=== PATIENT | male | born 1975 | race Hispanic/Latino ===

== ENCOUNTER 2017-06-09 10:32 | Emergency (ER) | payer MEDICARE ==
[~2017-06-09] VITALS: Ht 172.7 cm; Wt 177.4 kg
[~2017-06-09 10:32] MED LIST: ABILIFY2 MG PO; ASPIRIN81 MG PO; ATORVASTATIN CA20 MG PO; CELEXA40 MG PO; DAILY VITAMIN1 EAC3 PO; DIALYVITE 8000.8 M1 PO; FEXOFENADINE H180 MG PO; FLUDROCORTISON0.1 MG PO; LEVOTHYROXINE200 MCG PO; LYRICA75 MG PO; METHOCARBAMOL500 MG PO; MIDODRINE HCL2.5 MG PO; NABUMETONE500 MG PO; PHOSLO PO; SENSIPAR60 MG PO; SYNTHROID100 MCG PO; THIAMINE HCL250 MG PO; TOPAMAX25 MG PO; TOPAMAX50 MG PO; URSODIOL300 MG PEG; VITAMIN B12 PO; ZOLOFT100 MG PO
--- OUTSIDE RECORDS SUMMARY | 2017-06-09 10:35 | XMS REPORT | Clinical Summary ---
Author Author DEXTER [facility] Address Unknown Phone Unavailable Care Team Providers Care Social Media Manager Name Role Phone PCP Unavailable Allergies Not on File Current Medications Not on file Active Problems Not on file Social History Tobacco Use Types Packs/Day Years Used Date Never Assessed Sex Assigned at Date Recorded Not on file Last Filed Vital Signs Not on file Plan of Treatment Not on file Results Not on fileafter 06/08/2016
--- OUTSIDE RECORDS SUMMARY | 2017-06-09 10:35 | XMS REPORT ---
Author Author [facility] Address Unknown Phone Unavailable Care Team Providers Care Side Piece Coverer Name Role Phone MIGUE WERNER Unavailable Unavailable Problems This patient has no known problems. Allergies, Adverse Reactions, Alerts This patient has no known allergies or adverse reactions. Medications This patient has no known medications. Results Test Description Test Time Test Comments Text Results Atomic Results Result Comments FLUORO GUIDANCE [address]/REM [place] [id number] Patient Name: AIDA ZARATE MR #: [id number] : 1975 Age/Sex: 41/M Req #: [id number] Adm Physician: MIGUE WERNER MD Ordered by: VERONICA MILLAN MD Report #: [id number] Location: [facility] Room/Bed: [facility] Procedure: [id number] DX/FLUORO GUIDANCE [address]/ REM Exam Date: 01/08/17 Exam Time: 1800 REPORT STATUS: Signed PROCEDURE: NON-TUNNELLED CVC CATH PLACMNT COMPARISON: None. INDICATIONS: Patient in need of IV access. COMPLICATIONS: None MEDICATIONS: 1% Xylocaine BLOOD LOSS: Minimal PROCEDURE: Following informed consent, sterile preparation of the right neck was accomplished. 1% lidocaine was infiltrated in the soft tissues. Ultrasound was utilized for vascular access and placement of a 21 gauge skinny needle into the right internal jugular vein. This was followed by a 0.018 inch wire and then a micropuncture sheath which was placed with fluoroscopic guidance. Through the micropuncture sheath a 0.035 inch Amplatz Super Stiff wire was placed. A 7 Georgian 15 cm long arrow triple- lumen central line was then inserted over the wire with fluoroscopic guidance. The line is OK for immediate use. CONCLUSION: Successful placement of a triple-lumen central line utilizing ultrasound and fluoroscopic guidance. Kiran Roque D.O. Dictated by: Kiran Roque D.O. on 01/17/2017 at 10:10 Electronically approved by: Kiran Roque D.O. on 01/17/2017 at 10:10 Dictated By: KIRAN ROQUE DO 1010 Transcribed By: YUAN on 01/17/17 1010 COPY TO: VERONICA MILLAN MD CHEST SINGLE (PORTABLE) [place] [address] Patient Name: AIDA ZARATE MR #: [id number] : 1975 Age/Sex: 41/M Req #: [id number] Adm Physician: Ordered by: VERONICA MILLAN MD Report #: [id number] Location: ER Room/Bed: Procedure: [id number] DX/CHEST SINGLE (PORTABLE) Exam Date: 01/08/17 Exam Time: 0840 REPORT STATUS: Signed PROCEDURE: CHEST SINGLE (PORTABLE) TECHNIQUE: Portable AP chest INDICATION: Chest pain COMPARISON: [facility], DX, CHEST SINGLE (NOT PORTABLE), 12/28/2016, 10:54. FINDINGS: Clear, symmetrically inflated lungs. No pleural effusions. Normal heart size and mediastinal contour for technique. Intact skeleton. Study limited by underpenetration secondary to body habitus and portable technique. CONCLUSION: Limited study without acute abnormality or interval change from December 28. Dictated by: Ashley Montes M.D. on 01/08/2017 at 8:57 Electronically approved by : Ashley Montes M.D. on 01/08/2017 at 8:57 Dictated By : ASHLEY MONTES MD 6 Transcribed By: YUAN on 01/08/17856 COPY TO: VERONICA MILLAN MD NON-TUNNELLED CVC CATH PLACMNT [place] [address] Patient Name: AIDA ZARATE MR #: [id number] : 1975 Age/Sex: 41/M Req #: [id number] Adm Physician: MIGUE WERNER MD Ordered by: VERONICA MILLAN MD Report #: [id number] Location: MED/SURG3 Room/Bed: [facility] Procedure: [id number] IR/NON-TUNNELLED CVC CATH PLACMNT Exam Date: 01/08/17 Exam Time: 1800 REPORT STATUS: Signed PROCEDURE: NON-TUNNELLED CVC CATH PLACMNT COMPARISON: None. INDICATIONS: Patient in need of IV access. COMPLICATIONS: None MEDICATIONS: 1% Xylocaine BLOOD LOSS: Minimal PROCEDURE: Following informed consent, sterile preparation of the right neck was accomplished. 1% lidocaine was infiltrated in the soft tissues. Ultrasound was utilized for vascular access and placement of a 21 gauge skinny needle into the right internal jugular vein. This was followed by a 0.018 inch wire and then a micropuncture sheath which was placed with fluoroscopic guidance. Through the micropuncture sheath a 0.035 inch Amplatz Super Stiff wire was placed. A 7 Georgian 15 cm long arrow triple- lumen central line was then inserted over the wire with fluoroscopic guidance. The line is OK for immediate use. CONCLUSION: Successful placement of a triple-lumen central line utilizing ultrasound and fluoroscopic guidance. Kiran Roque D.O. Dictated by: Kiran Roque D.O. on 01/17/2017 at 10:10 Electronically approved by: Kiran Roque D.O. on 01/17/2017 at 10:10 Dictated By: KIRAN ROQUE DO 1010 Transcribed By: YUAN on 01/17/17 1010 COPY TO: VERONICA MILLAN MD CHEST SINGLE (NOT PORTABLE) [place] [address] Patient Name: AIDA ZARATE MR #: [id number] : 1975 Age/Sex: 41/M Req #: [id number] Adm Physician: Ordered by: VERONICA DEL CASTILLO MD Report #: [id number] Location: ER Room/Bed: Procedure: [id number] DX/CHEST SINGLE (NOT PORTABLE) Exam Date: 12/28/16 Exam Time: 1100 REPORT STATUS: Signed PROCEDURE: X-RAY CHEST, ONE VIEW COMPARISON: None. INDICATIONS: CHEST PAIN, DIZZINESS FINDINGS: Limited evaluation due to patient habitus. The lungs are well-inflated. No gross consolidation, pleural effusion, or pneumothorax. Cardiomediastinal contour and pulmonary vasculature are within normal limits for portable, AP technique. No acute osseous abnormalities. CONCLUSION: No acute cardiopulmonary abnormality. Dictated by: Edison Cedillo M.D. on 12/28/2016 at 11:21 Electronically approved by: Edison Cedillo M.D. on 12/28/2016 at 11:21 Dictated By: EDISON CEDILLO MD 1121 Transcribed By: YUAN on 12/28/161 COPY TO: VERONICA DEL CASTILLO MD US RENAL RETROPERITONEAL COMP [place] [address] Patient Name: AIDA ZARATE MR #: [id number] : 1975 Age/Sex: 41/M Req #: [id number] Adm Physician: MIGUE WERNER MD Ordered by: KRISTOPHER BUCKNER, CHACHA BUCKNER Report #: [id number] Location: [facility] Room/Bed: [place] [address] Procedure: [id number] US/US RENAL RETROPERITONEAL COMP Exam Date: 12/28/16 Exam Time: 1618 REPORT STATUS: Signed PROCEDURE: US RETROPERITONEAL ( KIDNEY ). COMPARISON: CT abdomen/pelvis 06/23/16; ultrasound abdomen 08/04/15 INDICATIONS: Cyst Or Mass Of Kidney; left nephrectomy in 2013 TECHNIQUE: Espitia-scale and color sonographic images of the bilateral kidneys and bladder where obtained in transverse and longitudinal planes. FINDINGS: RIGHT KIDNEY: Length: 8.7 cm in length, cortex is atrophic Masses: An hypoechoic round lesion in the lower pole near the hilum measures 18 x 18 x 21 mm. No corresponding masses are identified on CT or the previous ultrasound. Stones: Intrarenal calculi identified on CT were not visualized sonographically. Hydronephrosis: Mild pelviectasis. Echogenicity: Mildly increased LEFT KIDNEY: Absent. No mass in the nephrectomy bed. Bladder: Collapsed Survey images of the liver and spleen demonstrate no evidence of mass. CONCLUSION: 1. Atrophic right kidney with mild pelviectasis. Increased renal echotexture is suggestive of medical renal disease. 2. Hypoechoic mass in the right kidney has the appearance of a cyst. 3. Left nephrectomy. 4. No sonographic evidence of renal calculi. Dictated by: Liyah Noland M.D. on 12/28/2016 at 17:09 Electronically approved by: Liyah Noland M.D. on 12/28/2016 at 17: 09 Dictated By: LIYAH NOLAND MD 08 Transcribed By: YUAN on 12/28/161708 COPY TO: CHACHA SUMMERS
[2017-06-09 10:58] LABS: BASOPHILS % 0.5 % (0.0-1.0); EOSINOPHILS # (AUTO) 0.3 (0.0-0.4); HEMATOCRIT 49.8 % (38.2-49.6); HEMOGLOBIN 16.8 g/dL (14.0-18.0); LYMPHOCYTES # (AUTO) 1.6 (1.0-3.2); LYMPHOCYTES % 25.3 % (18.0-39.1); MEAN CORPUSCULAR HGB CONC 33.7 g/dL (31-35); MEAN CORPUSCULAR VOLUME 94.9 fL (81-99); MONOCYTES # (AUTO) 0.5 (0.2-0.8); MONOCYTES % 8.1 % (4.4-11.3); NEUTROPHILS # (AUTO) 3.8 (2.1-6.9); NEUTROPHILS % 61.8 % (38.7-80.0); PLATELET COUNT 174 x10e3/uL (140-360); RED BLOOD COUNT 5.25 x10e6/uL (4.3-5.7); RED CELL DISTRIBUTION WIDTH 14.8 % (11.7-14.4)
[2017-06-09 11:08] LABS: INR 1.03; PROTHROMBIN TIME 12.7 seconds (11.9-14.5)
[2017-06-09 11:16] LABS: ALBUMIN 3.8 g/dL (3.5-5.0); ALBUMIN/GLOBULIN RATIO 0.8 (0.8-2.0); ANION GAP 18.1 mmol/L (8-16); CALCIUM 8.7 mg/dL (8.4-10.2); CREATININE, SERUM 6.49 mg/dL (0.72-1.25); POTASSIUM 4.1 mmol/L (3.5-5.1)
--- NOTE | 2017-06-09 13:02 | Diagnostic Imaging Report ---
EXAM: CT Abdomen and Pelvis WITHOUT contrast INDICATION: \S\Oral contrast only, R/o Encarcerated Hernia. Discovered he had a hernia one year ago. Last night hernia started hurting in the mid abdomen. COMPARISON: None. TECHNIQUE: Abdomen and pelvis were scanned utilizing a multidetector helical scanner from the lung base to the pubic symphysis without administration of IV contrast. Absence of intravenous contrast decreases sensitivity for detection of focal lesions and vascular pathology. Coronal and sagittal reformations were obtained. Routine protocol was performed. IV CONTRAST: None ORAL CONTRAST: Readicat COMPLICATIONS: None RADIATION DOSE: Total DLP: 1455.4 mGy*cm Estimated effective dose: (DLP x 0.015 x size factor) mSv CTDIvol has been reviewed. It is below the limits set by the Radiation Protocol Committee (RPC). FINDINGS: LINES and TUBES: None. LOWER THORAX: Unremarkable HEPATOBILIARY: No focal hepatic lesions. No biliary ductal dilation. GALLBLADDER: No radio-opaque stones or sludge. No wall thickening. SPLEEN: No splenomegaly. PANCREAS: No focal masses or ductal dilatation. ADRENALS: No adrenal nodules KIDNEYS/URETERS: Left kidney surgically absent. Right kidney is atrophic. Trace right hydronephrosis. Multiple small cystic lesions are incompletely evaluated. 1.6 cm stone in the upper pole. 1.1 cm stone in the lower pole. 0.8 cm in the proximal right ureter. GI TRACT: No abnormal distention, wall thickening, or evidence of bowel obstruction. Small bowel loops measures 2.5 cm in maximum dimension. Appendix is normal. PELVIC ORGANS/BLADDER: Unremarkable. LYMPH NODES: No lymphadenopathy. VESSELS: Unremarkable. PERITONEUM / RETROPERITONEUM: No free air or fluid. BONES: Unremarkable. SOFT TISSUES: Partially visualized left abdominal wall hernia containing the splenic flexure of the colon, the sigmoid colon, and a short segment of the jejunum. The neck measures 10 cm. No evidence of incarceration. IMPRESSION: 1. There is insufficient time for the positive oral contrast to reach the rectum. However, the small bowel loops are uniform in size and wall thickness with no evidence of obstruction. 2. A large left abdominal wall hernia containing the splenic flexure of the colon, the sigmoid colon, short segment of the jejunum. The neck of the hernia measures 10 cm. No fluid or wall thickening to suggest incarceration or strangulation. 3. Left nephrectomy. Atrophic right kidney with 3 large right renal stones. Signed by: Dr. Chepe Colbert M.D. on 06/09/2017 12:59 PM
[2017-06-09] MEDS ORDERED: HYDROMORPHONE 1MG/1ML INJ IV STA (13:16)
[2017-06-09] MEDS ORDERED: MORPHINE SULFATE 2 MG/ML SYR IV PRN (14:30)
--- OUTSIDE RECORDS SUMMARY | 2017-06-09 14:43 | XMS REPORT | Clinical Summary ---
Author Author DEXTER [facility] Address Unknown Phone Unavailable Care Team Providers Care Buhr Mill Operator Name Role Phone PCP Unavailable Allergies Not on File Current Medications Not on file Active Problems Not on file Social History Tobacco Use Types Packs/Day Years Used Date Never Assessed Sex Assigned at Date Recorded Not on file Last Filed Vital Signs Not on file Plan of Treatment Not on file Results Not on fileafter 06/08/2016
[2017-06-09 16:10] VITALS: BP 124/81
--- NOTE | 2017-06-09 16:45 | History and Physical ---
This patient is a 41-year-old male with a past medical history positive for morbid obesity, left nephrectomy, renal disease, on dialysis, came here with abdominal pain. He was found to have a very large abdominal hernia through the incision site, but no evidence of bowel obstruction on the CT of the abdomen. The patient was seen by Dr. Omari Schumacher, who recommended no surgical intervention right now, and to see a surgeon in a high risk surgical hospital like [facility] due to his multiple comorbidities and being morbidly obese. REVIEW OF SYSTEMS CARDIOVASCULAR: No chest pain or palpitation. RESPIRATORY: No shortness of breath and no cough. ABDOMEN: Soft and nontender. No hepatosplenomegaly. He has an abdominal hernia. EXTREMITIES: Show no evidence of cyanosis, edema or trauma. On the CT of the abdomen, it showed no evidence of any bowel obstruction. On the BMP, sodium 137, potassium 4.1, chloride 93, CO2 30, BUN 27, creatinine 6.49. GFR 9. Glucose 87. Calcium 8.7. Total bilirubin 0.9, AST 15, ALT 16, alkaline phosphatase 409. Brain natriuretic peptide less than 10. Total protein 8.7, albumin 3.8, globulin 4.9, Amylase 277, but the lipase is normal at 70. On the CBC, showed a white blood count 6.21, hemoglobin 16.8, hematocrit 49.8, and platelet cont 174,000. PT 12.7, INR 1.03 and PTT 33. FINAL IMPRESSION 1. Large incisional abdominal hernia. 2. Morbid obesity. 3. End-stage renal disease, on dialysis. 4. Abdominal pain. PLAN OF TREATMENT: The patient as I said was seen by Dr. Omari Schumacher, who saw the patient and recommended the patient to be treated in a high risk [facility] due to the morbid obesity, end-stage renal disease, and defer to the surgeon in this particular patient. The patient is going to be discharged home. Follow up with the surgeon [facility]. Primary care physician is Dr. Ch. Job#: [id number] [place]
--- NOTE | 2017-06-09 18:10 | Discharge Summary ---
WILL NEAL, LENGTH 0:1 DEBBIE TORREZ MD Job#: [id number] [place]
--- NOTE | 2017-06-09 18:15 | Discharge Summary ---
SHORTSTAY A 41-year-old male with a past medical history of positive for end-stage disease, on dialysis, status post nephrectomy due to infection, morbid obesity, came here with left abdominal pain. He had a very large incisional abdominal hernia, which is retractable. CT of the abdomen showed no evidence of any bowel obstruction. The patient was seen by Dr. Omari Schumacher, general surgeon in the hospital, who recommended to the patient that he can go home since there is no evidence of any bowel obstruction. Should he have any more symptoms, he should see a surgeon that specializes in high risk patients. The patient has end-stage renal disease, morbid obesity and a very large hernia. PHYSICAL EXAMINATION HEART: Shows regular rhythm. Normal S1 and S2 sounds. LUNGS: Clear bilaterally. ABDOMEN: Soft. No tension. No hepatosplenomegaly. He has a very large abdominal hernia in the left upper quadrant. FINAL IMPRESSION 1. Abdominal pain secondary to large incisional hernia, which is retractable. 2. End-stage renal disease, on dialysis. 3. Morbid obesity. PLAN OF TREATMENT: The patient will be going home today. Follow up with the surgeon as an outpatient with Dr. Joe Ch, his primary care physician in a week. He was told to go to the emergency room should the symptoms worsen. DEBBIE TORREZ MD Job#: [id number] [place]
== END 2017-06-09 16:14 | disposition home or self-care (01) ==
LOC: ER 10:32 → UNDOADMOB 14:40 → ERHOLD 14:40
DX: R10.12 Left upper quadrant pain (principal); K43.9 Ventral hernia without obstruction or gangrene; I12.0 Hypertensive chronic kidney disease with stage 5 chronic kidney disease or end stage renal disease; N18.6 End stage renal disease; Z99.2 Dependence on renal dialysis; E66.01 Morbid (severe) obesity due to excess calories
CPT/HCPCS: 36415; 74176; 80053; 82150; 83690; 83880; 85025; 85610; 85730; 99284; J1170

== ENCOUNTER 2017-07-25 20:12 | Emergency (ER) | payer MEDICARE ==
[~2017-07-25] VITALS: Ht 172.7 cm; Wt 177.4 kg
--- OUTSIDE RECORDS SUMMARY | 2017-07-25 20:16 | XMS REPORT | Clinical Summary ---
Author Author DEXTER [facility] Address Unknown Phone Unavailable Care Team Providers Care Associate Professor Of Engineering Name Role Phone PCP Unavailable Allergies Active Allergy Reactions Severity Noted Date Comments Iodine And Iodide Swelling 06/09/2017 Containing Products Latex Rash Low 06/25/2017 Current Medications Prescription Sig. Disp. Refills Start End Date Status Date MIDODRINE HCL (MIDODRINE Take 40 mg by mouth 3 Active ORAL) (three) times daily. linaclotide (LINZESS) 72 Take 72 mcg by mouth Active mcg Cap daily. clonazePAM (KLONOPIN) 0.5 Take 0.5 mg by mouth 2 Active MG tablet (two) times daily as needed for Anxiety. DULoxetine (CYMBALTA) 60 Take 60 mg by mouth 2 Active MG capsule (two) times daily. lurasidone (LATUDA) 40 mg Take 40 mg by mouth Active Tab daily. traZODone (DESYREL) 50 MG Take 50 mg by mouth Active tablet nightly. levothyroxine (SYNTHROID, Take 150 mcg by mouth Active LEVOTHROID) 150 MCG Every morning on an empty tablet stomach. pregabalin (LYRICA) 75 MG Take 75 mg by mouth 2 Active capsule (two) times daily. pantoprazole (PROTONIX) Take 40 mg by mouth Active 40 MG tablet daily. FLUDROCORTISONE ACETATE Take 0.1 mg by mouth Active (FLUDROCORTISONE ORAL) daily. zolpidem (AMBIEN) 10 mg Take 10 mg by mouth every Active tablet night as needed for Insomnia. atorvastatin (LIPITOR) 40 Take 40 mg by mouth Active MG tablet daily. diphenhydrAMINE Take 75 mg by mouth every 06/26/19 Discontin (BENADRYL) 25 mg tablet 6 (six) hours as needed 18 ued for Sleep. sevelamer (RENVELA) 800 Take 800 mg by mouth 3 06/26/19 Discontin mg tablet (three) times daily with 18 ued meals. carvedilol (COREG) 12.5 Take 12.5 mg by mouth 2 06/26/19 Discontin MG tablet (two) times daily with 18 ued breakfast and dinner. doxazosin (CARDURA) 4 MG Take 4 mg by mouth 06/26/19 Discontin tablet nightly. 18 ued amLODIPine (NORVASC) 10 Take 10 mg by mouth 06/26/19 Discontin MG tablet daily. 18 ued topiramate (TOPAMAX) 25 Take 25 mg by mouth 2 06/26/19 Discontin MG capsule (two) times daily. 18 ued allopurinol (ZYLOPRIM) Take 100 mg by mouth 06/26/19 Discontin 100 MG tablet daily. 18 ued tamsulosin (FLOMAX) 0.4 Take 0.4 mg by mouth 06/26/19 Discontin mg Cp24 24 hr capsule daily. 18 ued levothyroxine (SYNTHROID, Take 200 mcg by mouth 06/26/19 Discontin LEVOTHROID) 200 MCG Every morning on an empty 18 ued tablet stomach. levothyroxine (SYNTHROID, Take 75 mcg by mouth 06/26/19 Discontin LEVOTHROID) 75 MCG tablet Every morning on an empty 18 ued stomach. ondansetron (ZOFRAN-ODT) Take 1 tablet (4 mg 20 tablet 0 06/09/ 4 MG disintegrating total) by mouth every 8 18 tablet (eight) hours as needed for Nausea for up to 7 days. traMADol (ULTRAM) 50 mg Take 1 tablet (50 mg 10 tablet 0 07/06/ tablet total) by mouth every 12 18 18 (twelve) hours as needed for Pain for up to 10 days. Max Daily Amount: 100 mg ondansetron (ZOFRAN-ODT) Take 1 tablet (4 mg 10 tablet 0 07/07/19 4 MG disintegrating total) by mouth every 8 18 18 tablet (eight) hours as needed for Nausea for up to 7 days. Active Problems Problem Noted Date Ventral hernia 07/06/2017 Encounters Date Type Specialty Care Team Description 07/06/2017 Hospital [facility] Encounter MD [place] 07/06/2017 Procedure Pass 07/06/2017 Surgery Ebony Marroquin LAPAROSCOPY,DIAGNOSTIC MD [place] 06/25/2017 Hospital Pre-Admission Testing Ebony Marroquin Encounter MD [place] 06/25/2017 Anesthesia Leeann Casillas MD Event 06/25/2017 Orders Only General Internal Medicine 06/09/2017 Emergency Emergency Medicine Adam Laurent MD Left sided abdominal pain (Primary Dx);Abdominal wall hernia;ESRD on dialysis (HCC);History of hypertension;History of obstructive sleep apnea;History of hypothyroidism after 07/24/2016 Social History Tobacco Use Types Packs/Day Years Used Date Never Smoker Smokeless Tobacco: Never Used Alcohol Use Drinks/Week oz/Week Comments No Sex Assigned at Date Recorded Not on file Last Filed Vital Signs Vital Sign Reading Time Taken Blood Pressure 94/47 07/06/2017 2:50 PM CDT Pulse 64 07/06/2017 2:50 PM CDT Temperature 36.1 C (96.9 F) 07/06/2017 2:50 PM CDT Respiratory Rate 20 07/06/2017 2:50 PM CDT Oxygen Saturation 99% 07/06/2017 2:50 PM CDT Inhaled Oxygen - - Concentration Weight 171.2 kg (377 lb 8 oz) 07/06/2017 6:59 AM CDT Height 177.8 cm (5' 10") 07/06/2017 6:59 AM CDT Body Mass Index 54.17 07/06/2017 6:59 AM CDT Plan of Treatment Not on file Procedures Procedure Name Priority Date/Time Associated Diagnosis Comments LAPAROSCOPY,DIAGNOSTIC 07/06/2017 Ventral hernia, recurrent 9:30 AM CDT Case Notes 2 HRS PER [place] Special Needs (PHYLLIS RUSSELL)Please also pull Set, SI Long Trocars and DO NOT OPEN UNTIL ASK per Dr. Lalit ricci. AN 5.7.18 after 07/24/2016 Results * RHYTHM STRIP - SCAN (07/10/2017 8:10 AM) * TRANSFUSION SERVICE REPORT - SCAN (07/07/2017 5:44 PM) * Potassium-Stat Lab (07/06/2017 7:16 AM) Component Value Ref Range Potassium 4.4 3.6 - 5.5 meq/L Specimen Performing Laboratory Blood, Arterial [facility] [address] [address] * Type and screen, automated (07/06/2017 7:16 AM) Component Value Ref Range Ab Scrn NEGATIVEComment: ECHO 2 Specimen Performing Laboratory [address] [address] * ABORH, manual (07/06/2017 7:16 AM) Component Value Ref Range ABO Grouping O Rh Factor POS Specimen Performing Laboratory [address] [address] * BUN and Creatinine (06/25/2017 11:41 AM) Component Value Ref Range BUN 41 (H) 7 - 21 mg/dL Creatinine 10.48 (H) 0.57 - 1.25 mg/dL EGFR 5Comment: ESTIMATED GFR IS NOT ACCURATE mL/min/1.73 sq m CREATININE CLEARANCE IN PREDICTING GLOMERULAR FILTRATION RATE. ESTIMATED GFR IS NOT APPLICABLE FOR DIALYSIS PATIENTS. Specimen Performing Laboratory [address] [address] * Hemoglobin (06/25/2017 11:41 AM) Component Value Ref Range Hemoglobin 15.4 13.7 - 17.5 GM/DL Specimen Performing Laboratory [address] [address] * Electrolytes (06/25/2017 11:41 AM) Component Value Ref Range Sodium 141 136 - 145 meq/L Potassium 5.1 3.5 - 5.1 meq/L Chloride 98 98 - 107 meq/L CO2 28 22 - 29 meq/L Specimen Performing Laboratory [address] [address] * ECG 12 lead (06/25/2017 11:38 AM) Specimen Performing Laboratory GE MUSE Narrative Ventricular Rate 80 BPM Atrial Rate 80 BPM P-R Interval 186 ms QRS Duration 92 ms Q-T Interval 390 ms QTC Calculation(Bazett) 449 ms P Brice 48 degrees R Brice 30 degrees T Brice 51 degrees Normal sinus rhythm Low voltage QRS Borderline ECG No previous ECGs available Confirmed by MD ELOY, IHAB ([id number]) on 06/25/2017 1:41:11 PM Procedure Note Interface, External Ris In - 06/25/2017 1:41 PM CDT Ventricular Rate 80 BPM Atrial Rate 80 BPM P-R Interval 186 ms QRS Duration 92 ms Q-T Interval 390 ms QTC Calculation(Bazett) 449 ms P Brice 48 degrees R Brice 30 degrees T Brice 51 degrees Normal sinus rhythm Low voltage QRS Borderline ECG No previous ECGs available Confirmed by MD ELOY, IHAB ([id number]) on 06/25/2017 1:41:11 PM * CBC with platelet count + automated diff (06/09/2017 6:02 PM) Component Value Ref Range WBC 5.8 3.5 - 10.5 K/ L RBC 4.95 4.63 - 6.08 M/ L Hemoglobin 15.8 13.7 - 17.5 GM/DL Hematocrit 47.9 40.1 - 51.0 % MCV 96.8 (H) 79.0 - 92.2 fL MCH 31.9 25.7 - 32.2 pg MCHC 33.0 32.3 - 36.5 GM/DL RDW 14.9 (H) 11.6 - 14.4 % Platelets 152 150 - 450 K/CU MM MPV 9.9 9.4 - 12.4 fL nRBC 0 0 - 0 /100 WBC % Neutros 56 % % Lymphs 31 % % Monos 8 % % Eos 4 % % Baso 1 % # Neutros 3.25 1.78 - 5.38 K/ L # Lymphs 1.79 1.32 - 3.57 K/ L # Monos 0.47 0.30 - 0.82 K/ L # Eos 0.24 0.04 - 0.54 K/ L # Baso 0.04 0.01 - 0.08 K/ L Immature 1 0 - 1 % Granulocytes-Relative Specimen Performing Laboratory Blood - Line, Venous [facility] [address] [address] * CBC with platelet count + automated diff (06/09/2017 6:02 PM) Specimen Performing Laboratory Blood Narrative The following orders were created for panel order CBC with platelet count + automated diff. Procedure Abnormality Status --------- - ------ CBC with platelet count ...[[id number]]AbnormalFinal result Please view results for these tests on the individual orders. * Basic Metabolic Panel (06/09/2017 6:02 PM) Component Value Ref Range Sodium 137 136 - 145 meq/L Potassium 4.5 3.5 - 5.1 meq/L Chloride 95 (L) 98 - 107 meq/L CO2 29 22 - 29 meq/L BUN 29 (H) 7 - 21 mg/dL Creatinine 7.46 (H) 0.57 - 1.25 mg/dL Glucose 100 70 - 105 mg/dL Calcium 8.9 8.4 - 10.2 mg/dL EGFR 8Comment: ESTIMATED GFR IS NOT ACCURATE mL/min/1.73 sq m CREATININE CLEARANCE IN PREDICTING GLOMERULAR FILTRATION RATE. ESTIMATED GFR IS NOT APPLICABLE FOR DIALYSIS PATIENTS. Specimen Performing Laboratory Blood - Line, Venous [facility] [address] [place] [address] after 07/24/2016
[2017-07-26 09:14] LABS: BASOPHILS % 0.6 % (0.0-1.0); EOSINOPHILS # (AUTO) 0.2 (0.0-0.4); EOSINOPHILS % 2.3 % (0.0-6.0); HEMATOCRIT 47.7 % (38.2-49.6); HEMOGLOBIN 15.9 g/dL (14.0-18.0); LYMPHOCYTES # (AUTO) 1.9 (1.0-3.2); LYMPHOCYTES % 28.2 % (18.0-39.1); MEAN CORPUSCULAR HEMOGLOBIN 32.9 pg (28-32); MEAN CORPUSCULAR HGB CONC 33.3 g/dL (31-35); MEAN CORPUSCULAR VOLUME 98.8 fL (81-99); MONOCYTES # (AUTO) 0.5 (0.2-0.8); MONOCYTES % 7.4 % (4.4-11.3); NEUTROPHILS # (AUTO) 4.2 (2.1-6.9); NEUTROPHILS % 61.1 % (38.7-80.0); PLATELET COUNT 194 x10e3/uL (140-360); RED BLOOD COUNT 4.83 x10e6/uL (4.3-5.7); RED CELL DISTRIBUTION WIDTH 15.3 % (11.7-14.4)
[2017-07-26 09:17] LABS: ALBUMIN 3.7 g/dL (3.5-5.0); ALBUMIN/GLOBULIN RATIO 0.9 (0.8-2.0); CALCIUM 8.3 mg/dL (8.4-10.2); CREATININE, SERUM 15.86 mg/dL (0.72-1.25)
== END 2017-07-25 21:28 | disposition home or self-care (01) ==
LOC: ER 20:12
DX: I12.0 Hypertensive chronic kidney disease with stage 5 chronic kidney disease or end stage renal disease (principal); E11.22 Type 2 diabetes mellitus with diabetic chronic kidney disease; Z99.2 Dependence on renal dialysis; Z98.84 Bariatric surgery status; G40.909 Epilepsy, unspecified, not intractable, without status epilepticus
CPT/HCPCS: 36415; 80053; 85025; 99283

== ENCOUNTER 2017-12-04 09:53 | Emergency (ER) | payer MEDICARE ==
[~2017-12-04] VITALS: Ht 172.7 cm; Wt 174.6 kg
[2017-12-04] MEDS ORDERED: ASPIRIN 81 MG CHEW TAB PO STA (10:06)
[2017-12-04] MEDS ORDERED: SODIUM CHLORIDE 0.9% 500ML 500 ML IV ONE ×2 (10:08→10:55)
[2017-12-04] MEDS ORDERED: SODIUM CHLORIDE 0.9% 500ML 500 ML ONE (10:10)
[2017-12-04] MEDS ORDERED: MIDODRINE 2.5 MG TAB PO STA (10:36)
[2017-12-04] MEDS ORDERED: MIDODRINE HCL 5 MG TABLET PO ONE (10:42)
[2017-12-04 11:19] LABS: BASOPHILS % 0.6 % (0.0-1.0); EOSINOPHILS # (AUTO) 0.2 (0.0-0.4); EOSINOPHILS % 3.7 % (0.0-6.0); HEMATOCRIT 50.8 % (38.2-49.6); LYMPHOCYTES # (AUTO) 1.3 (1.0-3.2); LYMPHOCYTES % 25.9 % (18.0-39.1); MEAN CORPUSCULAR HEMOGLOBIN 33.2 pg (28-32); MEAN CORPUSCULAR HGB CONC 33.5 g/dL (31-35); MEAN CORPUSCULAR VOLUME 99.2 fL (81-99); MONOCYTES # (AUTO) 0.4 (0.2-0.8); MONOCYTES % 7.8 % (4.4-11.3); NEUTROPHILS # (AUTO) 3.2 (2.1-6.9); NEUTROPHILS % 61.8 % (38.7-80.0); PLATELET COUNT 183 x10e3/uL (140-360); RED BLOOD COUNT 5.12 x10e6/uL (4.3-5.7)
[2017-12-04 11:27] LABS: INR 0.95; PROTHROMBIN TIME 13.6 seconds (11.9-14.5)
[2017-12-04 11:28] LABS: PARTIAL THROMBOPLASTIN TIME 35.6 seconds (23.8-35.5)
[2017-12-04 11:36] LABS: ALANINE AMINOTRANSFERASE 17 IU/L (0-55); ALBUMIN 3.9 g/dL (3.5-5.0); ALBUMIN/GLOBULIN RATIO 0.8 (0.8-2.0); ALKALINE PHOSPHATASE 377 IU/L (40-150); ANION GAP 20.1 mmol/L (8-16); BLOOD UREA NITROGEN 23 mg/dL (7-26); BUN/CREATININE RATIO 4 (6-25); CALCIUM 9.9 mg/dL (8.4-10.2); CARBON DIOXIDE 29 mmol/L (22-29); CHLORIDE 94 mmol/L (98-107); CREATINE KINASE 99 IU/L (30-200); CREATININE, SERUM 6.11 mg/dL (0.72-1.25); EST GLOMERULAR FILTRATION RATE 10 ML/MIN (60-); GLUCOSE 120 mg/dL (74-118); POTASSIUM 4.1 mmol/L (3.5-5.1); SODIUM 139 mmol/L (136-145)
--- NOTE | 2017-12-04 12:31 | Diagnostic Imaging Report ---
Examination: Single portable AP view of the chest. COMPARISON: None. INDICATION: Chest pain, hypotension IMPRESSION: Exam limited by soft tissue attenuation from patient's body habitus. 1. Lines and Tubes: None 2. Lungs are grossly clear. No consolidation or effusion. 3. Cardiomediastinal silhouette is normal. Pulmonary vasculature is normal. 4. No acute bony abnormalities. Signed by: Dr. Gray Hutchins M.D. on 12/04/2017 12:28 PM
[2017-12-04 13:48] VITALS: BP 116/65
--- OUTSIDE RECORDS SUMMARY | 2017-12-04 14:43 | XMS REPORT | Clinical Summary ---
Author Author [facility] Address Unknown Phone Unavailable Care Team Providers Care Home Based Assistant Name Role Phone PCP Unavailable Allergies Active [...] 1 tablet (4 mg 20 tablet 0 06/09/06/17/19 4 MG disintegrating total) by mouth every 8 18 tablet (eight) hours as needed for Nausea for up to 7 days. traMADol (ULTRAM) 50 mg Take 1 tablet (50 mg 10 tablet 0 07/06/07/17/19 tablet total) by mouth every 12 18 18 (twelve) hours as needed for Pain for up to 10 days. Max Daily Amount: 100 mg ondansetron (ZOFRAN-ODT) Take 1 tablet (4 mg 10 tablet 0 07/07/19 07/14/19 4 MG disintegrating total) by mouth every 8 18 18 tablet (eight) hours as needed for Nausea for up to 7 days. Active Problems Problem Noted Date Ventral hernia 07/06/2017 Encounters Date Type Specialty Care Team Description 07/06/2017 Hospital [place] Encounter MD Isamar 07/06/2017 Procedure Pass 07/06/2017 Surgery Ebony Marroquin LAPAROSCOPY,DIAGNOSTIC MD Isamra 06/25/2017 Hospital Pre-Admission Testing Ebony Marroquin Encounter MD Isamar 06/25/2017 Anesthesia Leeann Casillas MD Event 06/25/2017 Orders Only General Internal Medicine 06/09/2017 Emergency Emergency Medicine Adam Laurent MD Left sided abdominal pain (Primary Dx);Abdominal wall hernia;ESRD on dialysis (HCC);History of hypertension;History of obstructive sleep apnea;History of hypothyroidism after 12/03/2016 Social History Tobacco Use Types Packs/Day Years [...] per Dr. Lalit ricci. AN 5.7.18 after 12/03/2016 Results * RHYTHM STRIP - SCAN (07/10/2017 8:10 AM) * TRANSFUSION SERVICE REPORT - SCAN (07/07/2017 5:44 PM) * Potassium-Stat Lab (07/06/2017 7:16 AM) Component Value Ref Range Potassium 4.4 3.6 - 5.5 meq/L Specimen Performing Laboratory Blood, Arterial [facility] [address] [address] * Type and screen, automated (07/06/2017 7:16 AM) Component Value Ref Range Ab Scrn NEGATIVEComment: ECHO 2 Specimen Performing Laboratory [address] [address] * ABORH, manual (07/06/2017 7:16 AM) Component Value Ref Range ABO Grouping O Rh Factor POS Specimen Performing Laboratory [address] [address] * BUN and Creatinine (06/25/2017 11:41 AM) Component Value Ref Range BUN 41 (H) 7 - 21 mg/dL Creatinine 10.48 (H) 0.57 - 1.25 mg/dL EGFR 5Comment: ESTIMATED GFR IS NOT ACCURATE mL/min/1.73 sq m CREATININE CLEARANCE IN PREDICTING GLOMERULAR FILTRATION RATE. ESTIMATED GFR IS NOT APPLICABLE FOR DIALYSIS PATIENTS. Specimen Performing Laboratory [address] [address] * Hemoglobin (06/25/2017 11:41 AM) Component Value Ref Range Hemoglobin 15.4 13.7 - 17.5 GM/DL Specimen Performing Laboratory [address] [address] * Electrolytes (06/25/2017 11:41 AM) Component Value Ref Range Sodium 141 136 - 145 meq/L Potassium 5.1 3.5 - 5.1 meq/L Chloride 98 98 - 107 meq/L CO2 28 22 - 29 meq/L Specimen Performing Laboratory [address] [address] * ECG 12 lead (06/25/2017 11:38 AM) Specimen Performing Laboratory GE MUSE Narrative Ventricular Rate 80 BPM Atrial Rate 80 BPM P-R Interval 186 ms QRS Duration 92 ms Q-T Interval 390 ms QTC Calculation(Bazett) 449 ms P [place] 48 degrees R [place] 30 degrees T [place] 51 degrees Normal sinus rhythm Low voltage QRS Borderline ECG No previous ECGs available Confirmed by MD ELOY, IHAB ([id number]) on 06/25/2017 1:41:11 PM Procedure Note Interface, External Ris In - 06/25/2017 1:41 PM CDT Ventricular Rate 80 BPM Atrial Rate 80 BPM P-R Interval 186 ms QRS Duration 92 ms Q-T Interval 390 ms QTC Calculation(Bazett) 449 ms P [place] 48 degrees R [place] 30 degrees T [place] 51 degrees Normal sinus rhythm Low voltage QRS Borderline ECG No previous ECGs available Confirmed by MD ELOY, IHAB ([id number]) on 06/25/2017 1:41:11 PM * CBC with platelet count + automated diff (06/09/2017 6:02 PM) Component Value Ref Range WBC 5.8 3.5 - 10.5 K/L RBC 4.95 4.63 - 6.08 M/L Hemoglobin 15.8 13.7 - 17.5 GM/DL Hematocrit [...] % # Neutros 3.25 1.78 - 5.38 K/L # Lymphs 1.79 1.32 - 3.57 K/L # Monos 0.47 0.30 - 0.82 K/L # Eos 0.24 0.04 - 0.54 K/L # Baso 0.04 0.01 - 0.08 K/L Immature 1 0 - 1 % Granulocytes-Relative Specimen Performing Laboratory Blood - Line, Venous [facility] [address] [address] * CBC with platelet count + automated diff (06/09/2017 6:02 PM) Specimen Performing Laboratory Blood Narrative The following orders were created for panel order CBC with platelet count + automated diff. Procedure Abnormality Status --------- ------ CBC with platelet count ...[[id number]]AbnormalFinal result Please view results for these tests [...] Performing Laboratory Blood - Line, Venous [facility] [address] [place] [address] after 12/03/2016
== END 2017-12-04 13:50 | disposition home or self-care (01) ==
LOC: ER 09:53
DX: R07.89 Other chest pain (principal); K52.9 Noninfective gastroenteritis and colitis, unspecified; I95.9 Hypotension, unspecified; N18.6 End stage renal disease; Z99.2 Dependence on renal dialysis; I25.10 Atherosclerotic heart disease of native coronary artery without angina pectoris; E03.9 Hypothyroidism, unspecified
CPT/HCPCS: 36415; 71045; 80053; 82550; 82553; 83880; 84484; 85025; 85379; 85610; 85730; 93005; 99284; J7040

== ENCOUNTER → 2018-07-03 | Outpatient (CLI) | payer MEDICARE | LOC: MRI 13:36 | PROVIDERS: ATTEND Student in an Organized Health Care Education/Training Program | DX: R20.0 Anesthesia of skin (principal) ==

== ENCOUNTER 2018-10-03 08:46 | Emergency (ER) | payer MEDICARE ==
[~2018-10-03] VITALS: Ht 172.7 cm; Wt 174.6 kg
--- OUTSIDE RECORDS SUMMARY | 2018-10-03 08:48 | XMS REPORT | Clinical Summary ---
Author Author [facility] Organization [facility] Address Unknown Phone Unavailable Care Team Providers Care Sandblaster Supervisor Name Role Phone Bebeto Ch PCP Allergies Comments Active Allergy Reactions Severity Noted Date Iodine And Iodide Swelling 06/09/2017 Containing Products Latex Rash Low 06/25/2017 Medications End Date Status Medication Sig Dispensed Refills Start Date Active MIDODRINE HCL (MIDODRINE Take 40 mg by 0 ORAL) mouth 3 (three) times daily. Active linaclotide (LINZESS) 72 Take 72 mcg 0 mcg Cap by mouth daily. Active clonazePAM (KLONOPIN) 0.5 Take 0.5 mg 0 MG tablet by mouth 2 (two) times daily as needed for Anxiety. Active DULoxetine (CYMBALTA) 60 Take 60 mg by 0 MG capsule mouth 2 (two) times daily. Active lurasidone (LATUDA) 40 mg Take 40 mg by 0 Tab mouth daily. Active traZODone (DESYREL) 50 MG Take 50 mg by 0 tablet mouth nightly. Active levothyroxine (SYNTHROID, Take 150 mcg 0 LEVOTHROID) 150 MCG by mouth tablet Every morning on an empty stomach. Active pregabalin (LYRICA) 75 MG Take 75 mg by 0 capsule mouth 2 (two) times daily. Active pantoprazole (PROTONIX) Take 40 mg by 0 40 MG tablet mouth daily. Active FLUDROCORTISONE ACETATE Take 0.1 mg 0 (FLUDROCORTISONE ORAL) by mouth daily. Active zolpidem (AMBIEN) 10 mg Take 10 mg by 0 tablet mouth every night as needed for Insomnia. Active atorvastatin (LIPITOR) 40 Take 40 mg by 0 MG tablet mouth daily. Active Problems Problem Noted Date Ventral hernia 07/06/2017 Social History Date Tobacco Use Types Packs/Day Years Used Never Smoker Smokeless Tobacco: Never Used Alcohol Use Drinks/Week oz/Week Comments No Sex Assigned at Date Recorded Not on file Industry Job Start Date Occupation Not on file Not on file Not on file Travel End Travel History Travel Start No recent travel history available. Last Filed Vital Signs Not on file Plan of Treatment Not on file Results Not on fileafter 10/02/2017 Insurance Payer Benefit Subscriber ID Type Phone Address Plan / Group MEDICARE MEDICARE A xxxxxxxxxx Medicare B MEDICAID MEDICAID xxxxxxxxx Medicaid OF [place] Advance Directives For more information, please contact: [facility] [address] [place] [address] Date Inactivated Comments Code Status Date Activated 07/06/2017 5:06 PM Full Code 07/06/2017 7:15 AM This code status was determined by: Patient
[2018-10-03] MEDS ORDERED: ASPIRIN 81 MG CHEW TAB PO ONE (09:00)
[2018-10-03 09:17] LABS: BASOPHILS # (AUTO) 0.1 (0.0-0.1); BASOPHILS % 0.8 % (0.0-1.0); EOSINOPHILS # (AUTO) 0.3 (0.0-0.4); EOSINOPHILS % 4.5 % (0.0-6.0); HEMATOCRIT 39.2 % (38.2-49.6); HEMOGLOBIN 13.2 g/dL (14.0-18.0); LYMPHOCYTES # (AUTO) 1.6 (1.0-3.2); LYMPHOCYTES % 21.4 % (18.0-39.1); MEAN CORPUSCULAR HEMOGLOBIN 33.2 pg (28-32); MEAN CORPUSCULAR HGB CONC 33.7 g/dL (31-35); MEAN CORPUSCULAR VOLUME 98.5 fL (81-99); MONOCYTES # (AUTO) 0.7 (0.2-0.8); MONOCYTES % 9.3 % (4.4-11.3); NEUTROPHILS # (AUTO) 4.8 (2.1-6.9); NEUTROPHILS % 63.7 % (38.7-80.0); PLATELET COUNT 224 x10e3/uL (140-360); RED BLOOD COUNT 3.98 x10e6/uL (4.3-5.7)
[2018-10-03 09:28] LABS: INR 0.96; PROTHROMBIN TIME 13.3 seconds (11.9-14.5)
[2018-10-03 09:30] LABS: PARTIAL THROMBOPLASTIN TIME 69.5 seconds (23.8-35.5)
[2018-10-03 09:38] LABS: ALBUMIN 3.5 g/dL (3.5-5.0); ALBUMIN/GLOBULIN RATIO 0.9 (0.8-2.0); POTASSIUM 4.8 mmol/L (3.5-5.1)
[2018-10-03 09:43] LABS: ANION GAP 17.8 mmol/L (8-16); CALCIUM 7.6 mg/dL (8.4-10.2); CREATININE, SERUM 10.63 mg/dL (0.72-1.25)
[2018-10-03 09:44] LABS: CREATINE KINASE MB 1.7 ng/mL (0-5.0)
--- NOTE | 2018-10-03 09:49 | Diagnostic Imaging Report ---
Chest, 1 view, 10/03/2018. History: Chest pain. Comparison: 12/04/2017. Findings: The cardiomediastinal silhouette and pulmonary vasculature are within normal limits for a portable exam. There is no focal consolidation or pleural effusion. There are no acute osseous or soft tissue abnormalities. Impression: No acute cardiopulmonary abnormality. Signed by: Ian Stewart on 10/03/2018 9:45 AM
[2018-10-03 12:34] LABS: CREATINE KINASE 178 IU/L (30-200)
== END 2018-10-03 13:52 | disposition home or self-care (01) ==
LOC: ER 08:46
DX: R07.89 Other chest pain (principal); I12.0 Hypertensive chronic kidney disease with stage 5 chronic kidney disease or end stage renal disease; N18.6 End stage renal disease; Z99.2 Dependence on renal dialysis; I25.10 Atherosclerotic heart disease of native coronary artery without angina pectoris; E03.9 Hypothyroidism, unspecified; F41.9 Anxiety disorder, unspecified
CPT/HCPCS: 36415; 71045; 80053; 82550; 82553; 84484; 85025; 85610; 85730; 93005; 99284

== ENCOUNTER 2018-10-29 19:54 | Emergency (ER) | payer MEDICARE ==
[~2018-10-29] VITALS: Ht 172.7 cm; Wt 174.6 kg
[2018-10-29 21:03] LABS: BASOPHILS # (AUTO) 0.1 (0.0-0.1); BASOPHILS % 0.7 % (0.0-1.0); EOSINOPHILS # (AUTO) 0.3 (0.0-0.4); EOSINOPHILS % 3.9 % (0.0-6.0); HEMOGLOBIN 13.5 g/dL (14.0-18.0); LYMPHOCYTES # (AUTO) 1.3 (1.0-3.2); LYMPHOCYTES % 18.3 % (18.0-39.1); MEAN CORPUSCULAR HEMOGLOBIN 32.1 pg (28-32); MEAN CORPUSCULAR HGB CONC 32.9 g/dL (31-35); MEAN CORPUSCULAR VOLUME 97.4 fL (81-99); MONOCYTES # (AUTO) 0.3 (0.2-0.8); MONOCYTES % 4.5 % (4.4-11.3); NEUTROPHILS # (AUTO) 5.2 (2.1-6.9); NEUTROPHILS % 72.3 % (38.7-80.0); PLATELET COUNT 187 x10e3/uL (140-360); RED BLOOD COUNT 4.21 x10e6/uL (4.3-5.7); RED CELL DISTRIBUTION WIDTH 13.5 % (11.7-14.4)
[2018-10-29 21:25] LABS: ALBUMIN 3.7 g/dL (3.5-5.0); ALBUMIN/GLOBULIN RATIO 0.9 (0.8-2.0); ANION GAP 15.4 mmol/L (8-16); CALCIUM 7.8 mg/dL (8.4-10.2); CREATININE, SERUM 7.82 mg/dL (0.72-1.25); POTASSIUM 4.4 mmol/L (3.5-5.1)
[2018-10-29 21:26] LABS: AMYLASE 211 U/L (25-125); LIPASE 33 U/L (8-78)
--- NOTE | 2018-10-29 23:23 | Diagnostic Imaging Report ---
EXAM: CT Abdomen and Pelvis WITHOUT intravenous contrast, with oral contrast INDICATION: Abdominal pain COMPARISON: Abdominal CT 06/09/2017. TECHNIQUE: Abdomen and pelvis were scanned utilizing a multidetector helical scanner from the lung base to the pubic symphysis without administration of IV contrast. Absence of intravenous contrast decreases sensitivity for detection of focal lesions and vascular pathology. Coronal and sagittal reformations were obtained. Routine protocol was performed. IV CONTRAST: None ORAL CONTRAST: Positive oral contrast COMPLICATIONS: None RADIATION DOSE: Total DLP: 2257 mGy*cm Estimated effective dose: (DLP x 0.015 x size factor) mSv CTDIvol has been reviewed. It is below the limits set by the Radiation Protocol Committee (RPC). Dose modulation, iterative reconstruction, and/or weight based adjustment of the mA/kV was utilized to reduce the radiation dose to as low as reasonably achievable. FINDINGS: The left side of the patient's abdomen is outside of the field of view which limits evaluation. LINES and TUBES: None. LOWER THORAX: A few small air cysts in the lower lungs. HEPATOBILIARY: No focal hepatic lesions. No biliary ductal dilation. GALLBLADDER: No radio-opaque stones or sludge. No wall thickening. SPLEEN: No splenomegaly. PANCREAS: No focal masses or ductal dilatation. ADRENALS: No adrenal nodules KIDNEYS/URETERS: A few calculi in the atrophic right kidney, the largest measures 1.2 cm. No hydronephrosis. Absent left kidney. No renal masses. GI TRACT: No abnormal distention, wall thickening, or evidence of bowel obstruction. Part of the intestines are excluded from the field of view as they herniate through the left abdominal hernia out of the field of scan view. Partial gastrectomy. Appendix is normal. PELVIC ORGANS/BLADDER: Unremarkable. LYMPH NODES: No lymphadenopathy. VESSELS: There is mild atherosclerotic disease in the aorta and major arterial branches. PERITONEUM / RETROPERITONEUM: Partially visualized large left abdominal wall fat and bowel-containing hernia through a 15 cm peritoneal defect, similar in appearance compared to 06/09/2017 . No evidence of strangulation or bowel obstruction however the majority of the hernia is not included in the scan field of view. BONES: Sclerotic and cystic changes throughout the skeleton can be seen in setting of renal osteodystrophy. Subchondral resorption at the sacroiliac joints. SOFT TISSUES: The left abdominal soft tissues are not entirely included on this scan. IMPRESSION: Limited exam due to partial exclusion of the left side of the patient's abdomen outside of field of view. 1. Partially visualized large fat and bowel containing left abdominal hernia without evidence of stranding dilation, although the entire hernia is not included within the scan [id number]. The hernia appears unchanged compared to scan on 06/09/2017. 2. Right renal nephrolithiasis and right renal atrophy. Left kidney not visualized. 3. Findings of renal osteodystrophy. Signed by: Marcos Johnson DO on 10/29/2018 11:19 PM
== END 2018-10-29 23:32 | disposition home or self-care (01) ==
LOC: ER 19:54
DX: R10.12 Left upper quadrant pain (principal); K43.9 Ventral hernia without obstruction or gangrene
CPT/HCPCS: 36415; 74176; 80053; 82150; 83690; 85025; 99283

== ENCOUNTER → 2019-09-16 | Outpatient (CLI) | payer MEDICARE, BC ==
[~2019-09-16] MED LIST changes: +ALLEGRA ALLERGY60 MG PO; +AMBIEN10 MG PO; +PREDNISONE5 MG PO
== END ==
LOC: RAD 13:17
DX: M79.89 Other specified soft tissue disorders (principal)
CPT/HCPCS: 93970

== ENCOUNTER → 2019-09-23 | Day surgery (SDC) | payer MEDICARE, BC, OTHER ==
[~2019-09-23] MED LIST changes: +BUPIVACAINE HCL 0.5% INJ 30 ML VIAL INJ ONE; +CEFAZOLIN SOD 1 GM/NS 50ML 100 ML IV ONE; +DEXAMETHASONE SOD PHOS INJ 4 MG/ML VIAL ONE; +HYDROMORPHONE 1MG/1ML INJ ONE; +LIDOCAINE HCL 2% LOCAL INJ 5 ML SDV VIAL INJ ONE; +NEOSTIGMINE 1 MG/ML 10ML VIAL ONE; +PROPOFOL IV EMULSION 10 MG/ML 20 ML VIAL ONE; +SEVOFLURANE INHAL SOLN 250 ML PEN BTL ONE; +SODIUM CHLORIDE 0.9% 500ML 500 ML ONE
[2019-09-23 06:56] LABS: BASOPHILS % 0.2 % (0.0-1.0); EOSINOPHILS # (AUTO) 0.1 (0.0-0.4); EOSINOPHILS % 0.6 % (0.0-6.0); HEMATOCRIT 39.3 % (38.2-49.6); HEMOGLOBIN 12.7 g/dL (14.0-18.0); LYMPHOCYTES # (AUTO) 1.5 (1.0-3.2); LYMPHOCYTES % 16.9 % (18.0-39.1); MEAN CORPUSCULAR HEMOGLOBIN 31.8 pg (28-32); MEAN CORPUSCULAR HGB CONC 32.3 g/dL (31-35); MEAN CORPUSCULAR VOLUME 98.5 fL (81-99); MONOCYTES # (AUTO) 0.7 (0.2-0.8); MONOCYTES % 8.1 % (4.4-11.3); NEUTROPHILS # (AUTO) 6.6 (2.1-6.9); NEUTROPHILS % 73.9 % (38.7-80.0); PLATELET COUNT 182 x10e3/uL (140-360); RED BLOOD COUNT 3.99 x10e6/uL (4.3-5.7); RED CELL DISTRIBUTION WIDTH 12.9 % (11.7-14.4)
[2019-09-23 07:09] LABS: INR 0.95; PROTHROMBIN TIME 13.1 seconds (11.9-14.5)
[2019-09-23 07:10] LABS: PARTIAL THROMBOPLASTIN TIME 30.6 seconds (23.8-35.5)
[2019-09-23 07:21] LABS: ANION GAP 17.2 mmol/L (8-16); CALCIUM 7.4 mg/dL (8.4-10.2); CREATININE, SERUM 8.5 mg/dL (0.72-1.25); POTASSIUM 4.2 mmol/L (3.5-5.1)
--- NOTE | 2019-09-23 09:21 | Diagnostic Imaging Report ---
OR Fluoroscopy: IMPRESSION: Fluoroscopy service provided in the OR. Interpretation not requested. Signed by: Caesar Garza MD on 09/23/2019 9:17 AM
[2019-09-23 09:35] VITALS: BP 118/72
--- NOTE | 2019-09-23 11:22 | Operative Report ---
DATE OF PROCEDURE: 09/23/2019 SURGEON: Dionne Sherwood DPM FUGITIVE INVESTIGATOR: None. PREOPERATIVE DIAGNOSIS: Chronic plantar fasciotomy with bone spur, left foot. POSTOPERATIVE DIAGNOSIS: Chronic plantar fasciotomy with bone spur, left foot. PROCEDURES: 1. Endoscopic plantar fasciotomy with removal of bone spur, left foot. 2. Use of human allograft to prevent adhesions to spur healing. 3. Application of posterior splint. COMPLICATIONS: None. CONDITION: Stable. HEMOSTASIS: Pneumatic ankle tourniquet. ESTIMATED BLOOD LOSS: Less than 10 mL. PROCEDURE IN DETAIL: Under mild sedation, the patient was brought to the operating room, placed on the operating table in supine position. Following IV sedation, anesthesia was obtained with a general anesthetic. At this point, the left foot scrubbed, prepped, and draped in the usual aseptic manner, it was then lowered to the table. Attention was then directed to the medial aspect of the left foot, where a linear incision was made overlying the plantar fascia. The incision was deepened down to the level of the fascia. The fascia was then isolated. Trocar and cannula were then inserted. A lateral portal was then made. The trocar was removed. The camera was inserted. The medial, central, and lateral bands were you visualized. Utilizing a fascia blade, medial and central bands were transected through and through, leaving the lateral band intact. The instruments were then removed. The area was then flushed with copious amount of normal sterile saline solution. Utilizing the use of ventral fluoroscopy, the bone spur was then isolated utilizing an oscillating saw, it was then removed with the use of intraoperative fluoroscopy. The area was then flushed with copious amount of normal sterile saline solution. The human allograft was then inserted to prevent adhesions to prevent healing and to decrease the inflammatory response. The areas were then flushed copious amount of normal sterile saline solution. The wound was then closed with 4-0 nylon. Clean dressing was applied, consisting of Adaptic ointment, 4x4s, Kerlix was applied and posterior splint was secured utilizing an El bandage. The patient tolerated the procedure and anesthesia well without complications, was transferred to recovery room with vital signs stable and vascular status intact to both feet. The patient will be discharged home when he meets criteria. He was given instructions to be partial weightbearing with the use of the postop shoe and a posterior splint and a walker, to ice and elevate the foot while at rest. Follow up with me in the office and to call the office if any questions, concerns, or new problems arise. ALEX Grant/FERN /[id number]
== END | disposition home or self-care (01) ==
LOC: OR 06:05
PROVIDERS: ATTEND Podiatrist Foot & Ankle Surgery
DX: M72.2 Plantar fascial fibromatosis (principal); M77.32 Calcaneal spur, left foot; M06.9 Rheumatoid arthritis, unspecified; G47.33 Obstructive sleep apnea (adult) (pediatric); E03.9 Hypothyroidism, unspecified; K44.9 Diaphragmatic hernia without obstruction or gangrene; N18.6 End stage renal disease; E78.00 Pure hypercholesterolemia, unspecified; E66.9 Obesity, unspecified; F31.9 Bipolar disorder, unspecified; Z91.041 Radiographic dye allergy status; Z01.810 Encounter for preprocedural cardiovascular examination; Z01.812 Encounter for preprocedural laboratory examination; Z11.59 Encounter for screening for other viral diseases
CPT/HCPCS: 28104; 29893; 36415; 80048; 85025; 85610; 85730; 93005; J0690; J1100; J1170; J2001; J2704; J2710; J7040; Q4150; U0002; 76000

== ENCOUNTER 2019-12-05 10:07 | Inpatient (IN) | payer MEDICARE, BC, OTHER ==
[~2019-12-05] VITALS: Ht 177.8 cm; Wt 193.7 kg
[~2019-12-05 10:07] MED LIST changes: -BUPIVACAINE HCL 0.5% INJ 30 ML VIAL INJ ONE; -CEFAZOLIN SOD 1 GM/NS 50ML 100 ML IV ONE; -DEXAMETHASONE SOD PHOS INJ 4 MG/ML VIAL ONE; -HYDROMORPHONE 1MG/1ML INJ ONE; -LIDOCAINE HCL 2% LOCAL INJ 5 ML SDV VIAL INJ ONE; -NEOSTIGMINE 1 MG/ML 10ML VIAL ONE; -PROPOFOL IV EMULSION 10 MG/ML 20 ML VIAL ONE; -SEVOFLURANE INHAL SOLN 250 ML PEN BTL ONE; -SODIUM CHLORIDE 0.9% 500ML 500 ML ONE
[2019-12-05] MEDS ORDERED: ENOXAPARIN SODIUM INJ 100 MG/ML SYR SC STA (11:01)
--- OUTSIDE RECORDS SUMMARY | 2019-12-05 11:13 | XMS REPORT | Clinical Summary ---
Author Author [facility] Organization [facility] ict Address Unknown Phone Unavailable Care Team Providers Care Director Retirement Name Role Phone Malina Cantu [phone] Allergies Comments Active Allergy Reactions Severity Noted Date Iodine Swelling Medium 01/05/2010 Medications End Date Status Medication Sig Dispensed Refills Start Date Active diphenhydrAMINE Take 75 mg by 0 (BENADRYL) 25 mg capsule mouth every 6 hours as needed for Allergies. Active Sevelamer Carbonate Take 800 mg 0 (RENVELA) 800 mg tablet by mouth 3 times daily with meals. Active citalopram (CELEXA) 20 mg Take 1 tablet 90 tablet 0 tabletIndications: by mouth 4 Depression daily. Active carvedilol (COREG) 12.5 Take 1 tablet 180 tablet 1 mg tabletIndications: by mouth 2 4 Hypertension times daily. Active doxazosin (CARDURA) 4 mg Take 1 tablet 90 tablet 1 tabletIndications: by mouth 4 Hypertension daily. Active amLODIPine (NORVASC) 10 Take 1 tablet 90 tablet 1 mg tabletIndications: by mouth 4 Hypertension daily. Active topiramate (TOPAMAX) 25 Take 1 tablet 180 tablet 1 mg tabletIndications: by mouth 2 4 Migraine times daily. Active allopurinol (ZYLOPRIM) Take 1 tablet 90 tablet 1 1 100 mg tabletIndications: by mouth 4 Hyperuricemia daily. Active tamsulosin (FLOMAX) 0.4 Take 1 90 capsule 1 mg extended release capsule by 4 capsuleIndications: Renal mouth daily. stone Active levothyroxine (SYNTHROID) Take 1 tablet 90 tablet 1 200 mcg by mouth 4 tabletIndications: daily (total Hypothyroidism 275 mcg daily). Active levothyroxine (SYNTHROID) Take 1 tablet 90 tablet 1 75 mcg tabletIndications: by mouth 4 Hypothyroidism daily (total 275 mcg daily). Active Problems Problem Noted Date Morbid obesity with BMI of 50.0-59.9, adult 01/04/20 Encounter for blood transfusion 12/19/2012 Environmental allergies 12/19/2012 Dysuria 12/19/2012 Hematuria 12/19/2012 Hyperphosphatemia 12/17/2012 Secondary hyperparathyroidism of renal origin 2012 ESRD on dialysis 12/17/2012 Morbid obesity 12/16/2012 CKD (chronic kidney disease), stage V 12/16/2012 ESRD needing dialysis 12/16/2012 Anemia of chronic disease 12/16/2012 Blindness of left eye 10/25/2012 Overview: 11/07/12 - Received request for outside patient service (Open MRI Brain) from Dr. Raymundo Rosales. Patient's weig ht (396 lbs) exceeds the limit for [employer] MRI machines. The patient has eligibility under HD Plan 4 (100% Self-Pay). Patient is responsible for payment of procedure @ facility of choice. Unable to approve for outsou rcing of procedure @ this time. In basket note to Dr. Raymundo Rosales. Thea [place], [place] # [id number] Hyperparathyroidism 07/26/2011 Vitamin D deficiency 07/26/2011 Mixed calcium oxalate renal stones 07/26/2011 Ureteral stent retained 01/09/2011 Hypertension 06/02/2010 Hyperuricemia 06/02/2010 Hydronephrosis with renal and ureteral calculous obst ruction 05/30/2010 Hypothyroidism -h/of graves in past; retroorbital tri daniel +; seen endo in 05/30/2010 past - as of Feb 2013 - increase levot hyroxine to 275 mcg; ref to endocrinology done; rpt tsh in 8 wks Obesity Renal stone Sleep apnea Staghorn calculus End stage renal disease Immunizations Name Administration Dates Next Due Lidocaine 1% 5ml Inj 04/26/2011 DTaP Diphtheria, Tetanus, 06/22/1996 Acellular, Pertussis Influenza Vaccine 12/17/2012, 12/12/2011, PNEUMOCOCCAL 23-VALPS 12/12/2011 VACCINE 25 MCG/0.5 ML INJECTION Tdap Tetanus, diphtheria, 06/22/2010 acellular pertussis Vaccine Twinrix-HEP A&b 2012 Family History Medical History Relation Name Comments Hypertension Father Diabetes Father Stroke Father Cancer Maternal stomach cancer-- no nsmoker Grandmother Hypertension Mother Cancer Paternal lung cancer (smoker ) Grandfather Relation Name Status Comments Father Father Father Father Alive Maternal Grandmother Mother Mother Alive Paternal Grandfather Social History Date Tobacco Use Types Packs/Day Years Used Former Smoker Cigarettes 0.25 1 Smokeless Tobacco: Never Used Tobacco Cessation: Counseling Given: No Comments: started smoking again in 11/2009 Drinks/Week oz/Week Comments Alcohol Use No Sex Assigned at Date Recorded Not on file Industry Job Start Date Occupation Not on file Not on file Not on file Travel End Travel History Travel Start No recent travel history available. Last Filed Vital Signs Not on file Plan of Treatment Not on file Results Not on fileafter 12/04/2018 Insurance Type Payer Benefit Subscriber ID Effective Phone Address Plan / Dates Group MEDICARE MEDICARE xxxxxxxxxx 2013-P [phone] [place] [address] COMMERCIAL GENERIC COMMERCIAL xxxxxxxxxx 2013-P GENERIC resent [employer] FINANCIAL xxxxxxxxx 2013- [phone] [id number] [place] [address] Advance Directives Date Inactivated Comments Code Status Date Activated 07/15/2013 12:59 PM Full Code 07/10/2013 8:15 PM 2012 5:06 PM Full Code 12/16/2012 12:44 PM 10/30/2012 4:09 PM Full Code 10/24/2012 4:25 PM 05/09/2011 10:47 PM Full Code 05/08/2011 6:20 PM 05/08/2011 6:20 PM Full Code 05/06/2011 11:29 AM
--- OUTSIDE RECORDS SUMMARY | 2019-12-05 11:13 | XMS REPORT | Continuity of Care Document ---
Author Author [facility] t Organization [facility] Address [address] [place] [address] Phone Unavailable Care Team Providers Care Polystyrene Bead Molder Name Role Phone DEBBI BUCKNER, MIGUE PCP ROMÁN ESCOBAR Attphys Unavailable Olive HODGES Attphys Unavailable Russell DELVALLE Attphys Unavailable Jed MILLAN Attphys Unavailable YOKASTA DEMPSEY Attphys Unavailabl e SABRINA, ALFREDO Attphys Unavailable WERNER, SOUHEIL Attphys Unavailable YOKASTA DEMPSEY Admphys Unavailabl e WERNER, SOUHEIL Admphys Unavailable Payers Payer Name Policy Type Policy Number Effective Date Expiration Date [facility] [id number] 2015 00:00:00 [facility] Medicare A & B [id number] 2013 00:00:00 [facility] Problems Condition Name Condition Details Condition Category Status Onset Date Resolution Date Last Treatment Date Treating Clinician Comments Source Ventral hernia Ventral hernia Disease Active 2017-07-06 00:00:00 [facility] Morbid obesity with BMI of 50.0-59.9, adult Morbid obe sity with BMI of 50.0- 59.9, adult Disease Active 2013-01-03 00:00:[address] [facility] Encounter for blood transfusion Encounter for blood transfusion Dis ease Active 2012-12-19 00:00:00 [place] [facility] Environmental allergies Environmental allergies Disease Active 2012-12-19 00:00:[address] [facility] Dysuria Dysuria Disease Active 2012-12-19 00:00:[address] [facility] Hematuria Hematuria Disease Active 2012-12-19 00:00:[address] [facility] Hyperphosphatemia Hyperphosphatemia Disease Active 2012-12-17 00:00:[address] [facility] Secondary hyperparathyroidism of renal origin Secondar y hyperparathyroidism of renal origin Disease Active 2012-12-17 00:00:[address] [facility] ESRD on dialysis ESRD on dialysis Disease Active 2012-12-17 00:00:[address] [facility] Morbid obesity Morbid obesity Disease Active 2012-12-16 00:00:[address] [facility] CKD (chronic kidney disease), stage V CKD (chronic kidney di sease), stage V Disease Active 2012-12-16 00:00:[address] [facility] Anemia of chronic disease Anemia of chronic disease Disease Ac tive 2012-12-16 00:00:[address] [facility] Blindness of left eye Blindness of left eye Disease Active 201 04-27-05 00:00:00 Overview: 11/07/12 - Received request for outside patient service (Open MRI Brain) from Dr. Raymundo Rosales. Patient's weight (396 lbs) exceeds the limit for [facility] MRI machines. The patient has eligibility under HD Plan 4 (100% Self-Pay). Patient is responsible for payment of procedure @ facility of choice. Unable to approve for outsourcing of procedure @ this time. In basket note to Dr. Raymundo Rosales.Thea Waters, RN # [id number] [facility] Hyperparathyroidism Hyperparathyroidism Disease Active 2011-07-26 00:00 :[address] [facility] Vitamin D deficiency Vitamin D deficiency Disease Active 00:00:[address] 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 Hypertension Hypertension Disease Active 2010-06-02 00:00:[address] [facility] Hyperuricemia Hyperuricemia Disease Active 2010-06-02 00:00:[address] [facility] Hydronephrosis with renal and ureteral calculous obstr uction Hydronephrosis with renal and ureteral calculous obstruction Disease Active 2010-05-30 00:00: [address] [facility] Hypothyroidism -h/of graves in past; ret roorbital surgery +; seen endo in past - as of Feb 2013 - increase levothyroxine to 275 mcg; ref to endocrinology done; rpt tsh in 8 wks Hypothyroidism -h/of graves in past; ret roorbital surgery +; seen endo in past - as of Feb 2013 - increase levothyroxine to 275 mcg; ref to endocrinology done; rpt tsh in 8 wks Disease Active 2010-05-30 00:00:[address] [facility] Abdominal hernia Abdominal hernia Problem Active [facility] Abdominal pain Abdominal pain Problem Active [facility] Abdominal wall hernia Abdominal wall hernia Problem Active [facility] Chest pain Chest pain Problem Active [facility] Obesity Obesity Disease Active [facility] Renal stone Renal stone Disease Active [facility] Sleep apnea Sleep apnea Disease Active [facility] Staghorn calculus Staghorn calculus Disease Active [facility] End stage renal disease End stage renal disease Disease Active [facility] Allergies, Adverse Reactions, Alerts Allergy Name Allergy Type Status Severity Reaction(s) Onset Date Inacti ve Date Treating Clinician Comments Source Iodinated Contrast- Oral and IV Dye Allergy to Substance Active M oderate HIVES 2018-10-03 00:00:00 [facility] Latex Propensity to adverse reactions Active Rash 2017-06-25 00 :00:00 [facility] Iodine And Iodide Containing Products Propensity to adverse reactio ns Active Swelling 2017-06-09 00:00:00 [facility] iodine DA Active U 2015-05-08 00:00:00 [facility] Iodine Propensity to adverse reactions to drug Active Swelling 2010-01-05 00:00:[address] [facility] Family History Family Member Diagnosis Comments Start Date Stop Date Source Natural father Hypertension [facility] Natural father [facility] Natural father Stroke [facility] Maternal grandmother Cancer Chanelle is [facility] Natural mother Hypertension [facility] Paternal grandfather Cancer Chanelle is [facility] Social History Social Habit Start Date Stop Date Quantity Comments Source History of tobacco use Cigarette Smoker [facility] Sex Assigned [facility] Tobacco use and exposure 2017-07-06 00:00:00 2017-07-06 00:00:00 Aleksey cespedes used [facility] Cigarettes smoked current (pack per day) - Reported 00:00:00 2013-09-18 00:00:[address] [facility] Cigarette pack-years 2013-09-18 00:00:00 2013-09-18 00:00:[address] [facility] Alcohol intake 2013-09-18 00:00:00 2013-09-18 00:00:00 Current non-drinker of alcohol (finding) [facility] Tobacco Comment 2010-01-05 00:00:00 2010-01-05 00:00:00 started smoking again in 11/[address] [facility] Smoking Status Start Date Stop Date Source Never smoker [facility] Former smoker 2013-09-18 00:00:00 2013-09-18 00:00:00 [facility] Medications Ordered Medication Name Filled Medication Name Start Date Stop Da te Current Medication? Ordering Clinician Indication Dosage Frequency Signature (SIG) Comments Components Source MIDODRINE HCL (MIDODRINE ORAL) 2017-07-06 15:06:14 Yes 40mg Q.[id number] Take 40 mg by mouth 3 (three) times daily. [facility] linaclotide (LINZESS) 72 mcg Cap 2017-07-06 15:06:14 Yes 72ug QD Take 72 mcg by mouth daily. [facility] clonazePAM (KLONOPIN) 0.5 MG tablet 2017-07-06 15:06:14 Yes .5mg Take 0.5 mg by mouth 2 (two) times daily as needed for Anxiety. [facility] DULoxetine (CYMBALTA) 60 MG capsule 2017-07-06 15:06:14 Yes 60mg Q.5D Take 60 mg by mouth 2 (two) times daily. [facility] lurasidone (LATUDA) 40 mg Tab 2017-07-06 15:06:14 Yes 40mg QD Take 40 mg by mouth daily. [facility] traZODone (DESYREL) 50 MG tablet 2017-07-06 15:06:14 Yes 50mg QD Take 50 mg by mouth nightly. [facility] levothyroxine (SYNTHROID, LEVOTHROID) 150 MCG tablet 2 15:06:14 Yes 150ug Take 150 mcg by mouth Every morning on a n empty stomach. [facility] pregabalin (LYRICA) 75 MG capsule 2017-07-06 15:06:14 Yes 75mg Q.5D Take 75 mg by mouth 2 (two) times daily. [facility] pantoprazole (PROTONIX) 40 MG tablet 2017-07-06 15:06:14 Ye s 40mg QD Take 40 mg by mouth daily. [facility] FLUDROCORTISONE ACETATE (FLUDROCORTISONE ORAL) 2017-07-06 15:06: 14 Yes .1mg QD Take 0.1 mg by mouth daily. [facility] zolpidem (AMBIEN) 10 mg tablet 2017-07-06 15:06:14 Yes 10mg Take 10 mg by mouth every night as needed for Insomnia. [facility] atorvastatin (LIPITOR) 40 MG tablet 2017-07-06 15:06:14 Yes 40mg QD Take 40 mg by mouth daily. [facility] Sevelamer Carbonate (RENVELA) 800 mg tablet 2014-02-06 09:05:57 Yes 800mg Q.[id number] Take 800 mg by mouth 3 times daily with meal s. [facility] diphenhydrAMINE (BENADRYL) 25 mg capsule 2013-12-09 10:58:17 Yes 75mg Take 75 mg by mouth every 6 hours as needed for Allergies. [facility] citalopram (CELEXA) 20 mg tablet 2013-12-09 00:00:00 Yes Depression 20mg QD Take 1 tablet by mouth daily. [facility] carvedilol (COREG) 12.5 mg tablet 2013-12-09 00:00:00 Ye s Hypertension 12.5mg Q.5D Take 1 tablet by mouth [address] [facility] doxazosin (CARDURA) 4 mg tablet 2013-12-09 00:00:00 Yes Hypertension 4mg QD Take 1 tablet by mouth daily. [facility] amLODIPine (NORVASC) 10 mg tablet 2013-12-09 00:00:00 Ye s Hypertension 10mg QD Take 1 tablet by mouth daily. [facility] topiramate (TOPAMAX) 25 mg tablet 2013-12-09 00:00:00 Ye s Migraine 25mg Q.5D Take 1 tablet by mouth [address] [facility] allopurinol (ZYLOPRIM) 100 mg tablet 2013-12-09 00:00:00 Yes Hyperuricemia 100mg QD Take 1 tablet by mouth daily. [facility] tamsulosin (FLOMAX) 0.4 mg extended release capsule 2013-02 00:00:00 Yes Renal stone .4mg QD Take 1 capsule by mouth daily. [facility] levothyroxine (SYNTHROID) 200 mcg tablet 2013-12-09 00:00:00 Yes Hypothyroidism 200ug QD Take 1 tablet by mouth daily (total 275 mcg daily). [facility] levothyroxine (SYNTHROID) 75 mcg tablet 2013-12-09 00:00:00 Yes Hypothyroidism 75ug QD Take 1 tablet by mouth daily (total 275 mcg daily). [facility] Atorvastatin Calcium 20 Mg Tablet Atorvastatin Calcium 20 Mg Tablet Yes 20 Bedtime [facility] Cinacalcet Hcl (Sensipar) 60 Mg Tablet Cinacalcet Hcl (Sensipar) 60 Mg Tablet Yes 60 Daily [facility] Fexofenadine Hcl 180 Mg Tablet Fexofenadine Hcl 180 Mg Tablet Yes 180 Daily [facility] Fludrocortisone Acetate 0.1 Mg Tab Fludrocortisone Acetate 0.1 Mg Tab Yes .1 Daily [facility] Levothyroxine Sodium (Synthroid) 100 Mcg Tab Levothyro xine Sodium (Synthroid) 100 Mcg Tab Yes 300 Today At 6:00AM [facility] Midodrine Hcl 2.5 Mg Tablet Midodrine Hcl 2.5 Mg Tablet Yes 5 Three Times A Day [facility] Phoslo Phoslo Yes 3000 Three Times A Day [facility] Pregabalin (Lyrica) 75 Mg Cap Pregabalin (Lyrica) 75 Mg Cap Yes 75 Daily [facility] Ursodiol 300 Mg Capsule Ursodiol 300 Mg Capsule Yes 300 Twice A Day [facility] Levothyroxine Sodium 200 Mcg Tablet, 250 Mcg Oral Levo thyroxine Sodium 200 Mcg Tablet, 250 Mcg Oral 2017-01-11 00:00:00 No 250 Katherine ly [facility] Midodrine Hcl 2.5 Mg Tablet, 10 Mg Oral Midodrine Hcl 2.5 Mg Tablet, 10 Mg Oral 2017-01-11 00:00:00 No 10 Daily [facility] Nabumetone 500 Mg Tab, 1000 Mg Oral Nabumetone 500 Mg Tab, 1000 Mg Oral 2017-01-08 00:00:00 No 1000 Twice A Day [facility] Aripiprazole (Abilify*) 2 Mg Tablet, 2 Mg Oral Aripipr azole (Abilify*) 2 Mg Tablet, 2 Mg Oral 2016-12-28 00:00:00 No 2 Daily [facility] Aspirin 81 Mg Tab.chew, 81 Mg Oral Aspirin 81 Mg Tab.chew, 81 Mg Oral 2016-12-28 00:00:00 No 81 Daily [facility] Citalopram Hydrobromide (Celexa) 40 Mg Tablet, 40 Mg O ral Citalopram Hydrobromide (Celexa) 40 Mg Tablet, 40 Mg Oral 2016-12-28 00:00:00 No 40 Daily [facility] Folic Acid/Vitamin B Comp W-C (Dialyvite 800 Tablet) 0 .8 Mg Tablet, Oral Folic Acid/Vitamin B Comp W-C (Dialyvite 800 Tablet) 0.8 Mg Tablet, Oral 2016-12-28 00:00:00 No Daily [facility] Methocarbamol 500 Mg Tablet, 500 Mg Oral Methocarbamol 500 Mg Tablet, 500 Mg Oral 2016-12-28 00:00:00 No 500 Three Times A Day [facility] Multivitamin (Daily Vitamin) 1 Each Tablet, Oral Mul tivitamin (Daily Vitamin) 1 Each Tablet, Oral 2016-12-28 00:00:00 No Da emilee [facility] Pregabalin (Lyrica) 75 Mg Cap, 75 Mg Oral Pregabalin ( Lyrica) 75 Mg Cap, 75 Mg Oral 2016-12-28 00:00:00 No 75 Bedtime [facility] Sertraline Hcl (Zoloft) 100 Mg Tablet, 100 Mg Oral Ser traline Hcl (Zoloft) 100 Mg Tablet, 100 Mg Oral 2016-12-28 00:00:00 No 100 D aily [facility] Thiamine Hcl 250 Mg Tablet, 250 Mg Oral Thiamine Hcl 250 Mg Tablet, 250 Mg Oral 2016-12-28 00:00:00 No 250 Daily [facility] Topiramate (Topamax) 25 Mg Tablet, 25 Mg Oral Topirama te (Topamax) 25 Mg Tablet, 25 Mg Oral 2016-12-28 00:00:00 No 25 Daily [facility] Topiramate (Topamax) 50 Mg Tablet, 50 Mg Oral Topirama te (Topamax) 50 Mg Tablet, 50 Mg Oral 2016-12-28 00:00:00 No 50 Daily [facility] Vitamin B12 , Oral Vitamin B12 , Oral 2016-12-28 00:00:00 No Daily [facility] Immunizations Ordered Immunization Name Filled Immunization Name Date Status Comments Source Twinrix-HEP A&b 2012 00:00:[address] [facility] Influenza Vaccine 2012-12-17 00:00:[address] [facility] PNEUMOCOCCAL 23-VALPS VACCINE 25 MCG/0.5 ML INJECTION 2011-12-12 00:00:00 [facility] Influenza Vaccine 2011-12-12 00:00:[address] [facility] Lidocaine 1% 5ml Inj 2011-04-26 00:00:[address] [facility] Influenza Vaccine 2011-01-14 00:00:[address] [facility] Tdap Tetanus, diphtheria, acellular pertussis Vaccine 2010-06-22 00:00:[address] [facility] DTaP Diphtheria, Tetanus, Acellular, Pertussis 1996-06 00:00:[address] [facility] Procedures Procedure Date / Time Performed Performing Clinician [facility] e CT of abdomen and pelvis without contrast 2018-10-29 00:00:[address] HODGES [facility] Encounters Start Date/Time End Date/Time En[facility] ID Source 2018-10-29 19:54:00 2018-10-29 23:32:00 Departed Emergency Room 1 CT HODGES [facility] [id number] [facility] 2018-10-03 08:46:00 2018-10-03 13:52:00 Departed Emergency Room 1 CANDIDO DELVALLE [facility] [id number] [facility] 2018-07-03 13:36:00 2018-07-03 13:36:00 Registered Clinic [facility] [id number] [facility] 2017-07-25 20:12:00 2017-07-25 21:28:00 Departed Emergency Room [facility] [id number] [facility] 2017-06-09 10:32:00 2017-06-09 16:14:00 Departed Emergency Room ER VERONICA MILLAN [facility] [id number] [facility] 2017-01-08 16:13:00 2017-01-11 16:47:00 Discharged Inpatient ER DEBBI [facility] [id number] [facility] 2016-12-28 13:42:00 2016-12-30 22:53:00 Discharged Inpatient (obs) ER WERNER, [facility] [id number] [facility] Results Test Description Test Time Test Comments Results Result Comments Source FLURO UP TO 1 HR-GENERAL 2019-09-23 09:17:00 [place] [address] Patient Name: AIDA ZARATE MR #: [id number] : 1975 Age/Sex: 43/M Req #: [id number] Adm Physician: Ordered by: ROMÁN ESCOBAR DPM Report #: [id number] Location: OR Room/Bed: Procedure: [id number] DX/FLURO UP TO 1 HR-GENERAL Exam Date: 09/23/19 Exam Time: 0756 REPORT STATUS: Signed OR Fluoroscopy: IMPRESSION: Fluoroscopy service provided in the OR. Interpretation not requested. Signed by: Caesar Plummer MD on 09/23/2019 9:17 AM Dictated By: CAESAR PLUMMER MD 6 Transcribed By: ANTONIA on 09/23/19916 COPY TO: ROMÁN ESCOBAR DPM CT ABDOMEN/PELVIS WO 2018-10-29 23:00:00 [place] [address] Patient Name: AIDA ZARATE MR #: [id number] : 1975 Age/Sex: 42/M Req #: [id number] Adm Physician: Ordered by: CT HODGES MD Report #: [id number] Location: ER Room/Bed: Procedure: [id number] CT/CT ABDOMEN/PELVIS WO Exam Date: 10/29/18 Exam Time: 2134 REPORT STATUS: Signed EXAM: CT Abdomen and Pelvis WITHOUT intravenous contrast, with oral contrast INDICATION: Abdominal pain COMPARISON: Abdominal CT 06/09/2017. TECHNIQUE: Abdomen and pelvis were scanned utilizing a multidetector helical scanner from the lung base to the pubic symphysis without administration of IV contrast. Absence of intravenous contrast decreases sensitivity for detection of focal lesions and vascular pathology. Coronal and sagittal reformations were obtained. Routine protocol was performed. IV CONTRAST: None ORAL CONTRAST: Positive oral contrast COMPLICATIONS: None RADIATION DOSE: Total DLP: 2257 mGy*cm Estimated effective dose: (DLP x 0.015 x size factor) mSv CTDIvol has been reviewed. It is below the limits set by the Radiation Protocol Committee (RPC). Dose modulation, iterative reconstruction, and/or weight based adjustment of the mA/kV was utilized to reduce the radiation dose to as low as reasonably achievable. FINDINGS: The left side of the patient's abdomen is outside of the field of view which limits evaluation. LINES and TUBES: None. LOWER THORAX: A few small air cysts in the lower lungs. HEPATOBILIARY: No focal hepatic lesions. No biliary ductal dilation. GALLBLADDER: No radio-opaque stones or sludge. No wall thickening. SPLEEN: No splenomegaly. PANCREAS: No focal masses or ductal dilatation. ADRENALS: No adrenal nodules KIDNEYS/URETERS: A few calculi in the atrophic right kidney, the largest measures 1.2 cm. No hydronephrosis. Absent left kidney. No renal masses. GI TRACT: No abnormal distention, wall thickening, or evidence of bowel obstruction. Part of the intestines are excluded from the field of view as they herniate through the left abdominal hernia out of the field of scan view. Partial gastrectomy. Appendix is normal. PELVIC ORGANS/BLADDER: Unremarkable. LYMPH NODES: No lymphadenopathy. VESSELS: There is mild atherosclerotic disease in the aorta and major arterial branches. PERITONEUM / RETROPERITONEUM: Partially visualized large left abdominal wall fat and bowel-containing hernia through a 15 cm peritoneal defect, similar in appearance compared to 06/09/2017 . No evidence of strangulation or bowel obstruction however the majority of the hernia is not included in the scan field of view. BONES: Sclerotic and cystic changes throughout the skeleton can be seen in setting of renal osteodystrophy. Subchondral resorption at the sacroiliac joints. SOFT TISSUES: The left abdominal soft tissues are not entirely included on this scan. IMPRESSION: Limited exam due to partial exclusion of the left side of the patient's abdomen outside of field of view. 1. Partially visualized large fat and bowel containing left abdominal hernia without evidence of stranding dilation, although the entire hernia is not included within the scan [id number]. The hernia appears unchanged compared to scan on 06/09/2017. 2. Right renal nephrolithiasis and right renal atrophy. Left kidney not visualized. 3. Findings of renal osteodystrophy. Signed by: Marcos Ramon DO on 11:19 PM Dictated By: MARCOS RAMON DO 18 Transcribed By: ANTONIA on 10/29/182318 COPY TO: CT HODGES MD Amylase Level 2018-10-29 21:28:00 Test Item Amylase Level (test code = 1798-8) 211 25-125 H [facility]2019-09-10 21:28:00* Test Item Value Reference Range Interpretation Comments Lipase (test code = 3040-3) 33 8-78 [facility] [id number] 21:26:00* Test Item Value Reference Range Interpretation Comments Sodium Level (test code = 2951-2) 137 136-145 [facility] Center[facility]assium [id number] 21:26:00* Test Item Value Reference Range Interpretation Comments Potassium Level (test code = 2823-3) 4.4 3.5-5.1 [facility] Center[facility]loride [id number] 21:26:00* Test Item Value Reference Range Interpretation Comments Chloride Level (test code = 2075-0) 95 98-107 L [facility] CenterCarbon Dioxide [id number] 21:26:00* Test Item Value Reference Range Interpretation Comments Carbon Dioxide Level (test code = 2028-9) 31 22-29 H [facility] CenterAnion [id number] 21:26:00* Test Item Value Reference Range Interpretation Comments Anion Gap (test code = 35488-8) 15.4 8-16 [facility] CenterBlood Urea [id number] 21:26:00* Test Item Value Reference Range Interpretation Comments Blood Urea Nitrogen (test code = 3094-0) 33 7-26 H [facility] CenterCreatinine2019-09-10 21:26:00* Test Item Value Reference Range Interpretation Comments Creatinine (test code = 2160-0) 7.82 0.72-1.25 H [facility] CenterBUN/Creatinine [id number] 21:26:00* Test Item Value Reference Range Interpretation Comments BUN/Creatinine Ratio (test code = 3097-3) 4 6-25 L [facility] CenterEstimat Glomerular Filtration Rate 2018-10-29 21:26:00* Test Item Value Reference Range Interpretation Comments Estimat Glomerular Filtration Rate (test code = 440668902) 8 >60 L Ranges were taken from the National Kidney Disease Education Program and the [facility] Kidney Foundation literature.Reference ranges:60 or greater: Gwdixk75-82 ( for 3 consecutive months): Chronic kidney disease 15 or less: Kidney failure[facility] HospitalGlucose [id number] 21:26:00* Test Item Value Reference Range Interpretation Comments Glucose Level (test code = QFK6181) 192 74-118 H [facility] CenterCalcium [id number] 21:26:00* Test Item Value Reference Range Interpretation Comments Calcium Level (test code = 46359-5) 7.8 8.4-10.2 L [facility] CenterTotal [id number] 21:26:00* Test Item Value Reference Range Interpretation Comments Total Bilirubin (test code = 1975-2) 0.7 0.2-1.2 [facility] CenterAspartate Amino Transf (AST/SGOT) 2018-10-29 21:26:00* Test Item Value Reference Range Interpretation Comments Aspartate Amino Transf (AST/SGOT) (test code = Aspartate Amino Transf (AST/SGOT)) 13 5-34 [facility] CenterAlanine Aminotransferase (ALT/SGPT) 2018-10-29 21:26:00* Test Item Value Reference Range Interpretation Comments Alanine Aminotransferase (ALT/SGPT) (test code = 1742-6) 13 0-55 [facility] CenterTotal Zbdmfws0365-78-02 21:26:00* Test Item Value Reference Range Interpretation Comments Total Protein (test code = 2885-2) 7.7 6.5-8.1 [facility] CenterAlbumin2019-09-10 21:26:00* Test Item Value Reference Range Interpretation Comments Albumin (test code = 1751-7) 3.7 3.5-5.0 [facility] CenterGlobulin2019-09-10 21:26:00* Test Item Value Reference Range Interpretation Comments Globulin (test code = 36306-9) 4.0 2.3-3.5 H [facility] CenterAlbumin/Globulin Ehuks3537-89-86 21:26:00 * Test Item Value Reference Range Interpretation Comments Albumin/Globulin Ratio (test code = 1759-0) 0.9 0.8-2.0 [facility] CenterAlkaline Ujukirspshf7135-63-37 21:26:00* Test Item Value Reference Range Interpretation Comments Alkaline Phosphatase (test code = 6768-6) 539 40-150 H [facility] CenterWhite Blood Mtfvn2779-34-35 21:03:00* Test Item Value Reference Range Interpretation Comments White Blood Count (test code = 6690-2) 7.12 4.8-10.8 [facility] CenterRed Blood Briew2403-67-27 21:03:00* Test Item Value Reference Range Interpretation Comments Red Blood Count (test code = 789-8) 4.21 4.3-5.7 L [facility] CenterHemoglobin2019-09-10 21:03:00* Test Item Value Reference Range Interpretation Comments Hemoglobin (test code = 56383-8) 13.5 14.0-18.0 L [facility] CenterHematocrit2019-09-10 21:03:00* Test Item Value Reference Range Interpretation Comments Hematocrit (test code = 4544-3) 41.0 38.2-49.6 [facility] CenterMean Corpuscular Kireee6275-50-01 21:03:00* Test Item Value Reference Range Interpretation Comments Mean Corpuscular Volume (test code = 787-2) 97.4 81-99 [facility] CenterMean Corpuscular Sqkhpepsln6604-60-34 21:03:00* Test Item Value Reference Range Interpretation Comments Mean Corpuscular Hemoglobin (test code = 785-6) 32.1 28-32 H [facility] CenterMean Corpuscular Hemoglobin Concent 2018-10-29 21:03:00* Test Item Value Reference Range Interpretation Comments Mean Corpuscular Hemoglobin Concent (test code = 786-4) 32.9 31-35 [facility] CenterRed Cell Distribution Gsltl2594-88-23 21:03:00* Test Item Value Reference Range Interpretation Comments Red Cell Distribution Width (test code = 17596-1) 13.5 11.7 -14.4 [facility] CenterPlatelet Gcyet5140-15-06 21:03:00* Test Item Value Reference Range Interpretation Comments Platelet Count (test code = 777-3) 187 140-360 [facility] CenterNeutrophils (%) (Auto)2018-10-29 21:03:00 * Test Item Value Reference Range Interpretation Comments Neutrophils (%) (Auto) (test code = 07868-2) 72.3 38.7-80.0 [facility] CenterLymphocytes (%) (Auto)2018-10-29 21:03:00 * Test Item Value Reference Range Interpretation Comments Lymphocytes (%) (Auto) (test code = 736-9) 18.3 18.0-39.1 [facility] CenterMonocytes (%) (Auto)2018-10-29 21:03:00* Test Item Value Reference Range Interpretation Comments Monocytes (%) (Auto) (test code = 5905-5) 4.5 4.4-11.3 [facility] CenterEosinophils (%) (Auto)2018-10-29 21:03:00 * Test Item Value Reference Range Interpretation Comments Eosinophils (%) (Auto) (test code = 713-8) 3.9 0.0-6.0 [facility] CenterBasophils (%) (Auto)2018-10-29 21:03:00* Test Item Value Reference Range Interpretation Comments Basophils (%) (Auto) (test code = 706-2) 0.7 0.0-1.0 [facility] CenterIM GRANULOCYTES %2018-10-29 21:03:00* Test Item Value Reference Range Interpretation Comments IM GRANULOCYTES % (test code = IM GRANULOCYTES %) 0.3 0.0- 1.0 [facility] CenterNeutrophils # (Auto)2018-10-29 21:03:00* Test Item Value Reference Range Interpretation Comments Neutrophils # (Auto) (test code = 751-8) 5.2 2.1-6.9 [facility] CenterLymphocytes # (Auto)2018-10-29 21:03:00* Test Item Value Reference Range Interpretation Comments Lymphocytes # (Auto) (test code = 44337-9) 1.3 1.0-3.2 [facility] CenterMonocytes # (Auto)2018-10-29 21:03:00* Test Item Value Reference Range Interpretation Comments Monocytes # (Auto) (test code = 742-7) 0.3 0.2-0.8 [facility] CenterEosinophils # (Auto)2018-10-29 21:03:00* Test Item Value Reference Range Interpretation Comments Eosinophils # (Auto) (test code = 711-2) 0.3 0.0-0.4 [facility] CenterBasophils # (Auto)2018-10-29 21:03:00* Test Item Value Reference Range Interpretation Comments Basophils # (Auto) (test code = 704-7) 0.1 0.0-0.1 [facility] CenterAbsolute Immature Granulocyte (auto 2018-10-29 21:03:00* Test Item Value Reference Range Interpretation Comments Absolute Immature Granulocyte (auto (luis carlos t code = Absolute Immature Granulocyte (auto) 0.02 0-0.1 [facility] CenterCreatine Kinase MK5483-97-74 12:57:00* Test Item Value Reference Range Interpretation Comments Creatine Kinase MB (test code = 19745-6) 1.60 0-5.0 [facility] CenterTroponin [id number] 12:57:00* Test Item Value Reference Range Interpretation Comments Troponin I (test code = KUM1745) < 0.001 0-0.300 [facility] CenterCreatine Kinase [id number] 12:57:00* Test Item Value Reference Range Interpretation Comments Creatine Kinase MB (test code = 11900-3) 1.60 0-5.0 [facility] CenterTroponin J1943-33-83 12:57:00* Test Item Value Reference Range Interpretation Comments Troponin I (test code = GFE2884) < 0.001 0-0.300 [facility] CenterCreatine Yujfce5239-82-78 12:38:00* Test Item Value Reference Range Interpretation Comments Creatine Kinase (test code = 2157-6) 178 30-200 [facility] CenterCreatine Vkehjj3813-34-88 12:38:00* Test Item Value Reference Range Interpretation Comments Creatine Kinase (test code = 2157-6) 178 30-200 [facility] CenterProthrombin Hmmr9838-99-43 09:46:00* Test Item Value Reference Range Interpretation Comments Prothrombin Time (test code = 5902-2) 13.3 11.9-14.5 [facility] CenterProthromb Time International Ratio 2018-10-03 09:46:00* Test Item Value Reference Range Interpretation Comments Prothromb Time International Ratio (test code = 6301-6) 0.96 Oral Anticoagulant Therapy INR Values:1. Low Intensity Therapy 1.5 - 2.02 . Moderate Intensity Therapy 2.0 - 3.03. High Intensity Therapy(1) 2.5 - 3. 54. High Intensity Therapy(2) 3.0 - 4.05. Panic Value INR > 5.0 [facility] CenterActivated Partial Thromboplast Time 2018-10-03 09:46:00* Test Item Value Reference Range Interpretation Comments Activated Partial Thromboplast Time (test code = 18264-1) 69.5 23.8-35.5 [facility] Centerodium Ccomh6085-81-49 09:46:00* Test Item Value Reference Range Interpretation Comments Sodium Level (test code = 2951-2) 137 136-145 [facility] CenterPotassium Crppq1924-64-11 09:46:00* Test Item Value Reference Range Interpretation Comments Potassium Level (test code = 2823-3) 4.8 3.5-5.1 [facility] CenterChloride Ugaze7268-12-26 09:46:00* Test Item Value Reference Range Interpretation Comments Chloride Level (test code = 2075-0) 95 98-107 L [facility] CenterCarbon Dioxide Nkkmg7570-10-73 09:46:00* Test Item Value Reference Range Interpretation Comments Carbon Dioxide Level (test code = 2028-9) 29 22-29 [facility] CenterAnion Kfw9675-15-62 09:46:00* Test Item Value Reference Range Interpretation Comments Anion Gap (test code = 80583-0) 17.8 8-16 H [facility] CenterBlood Urea Woutjqmg1403-03-44 09:46:00* Test Item Value Reference Range Interpretation Comments Blood Urea Nitrogen (test code = 3094-0) 54 7-26 H [facility] CenterCreatinine2019-08-15 09:46:00* Test Item Value Reference Range Interpretation Comments Creatinine (test code = 2160-0) 10.63 0.72-1.25 H [facility] CenterBUN/Creatinine Zsnrm1949-11-48 09:46:00* Test Item Value Reference Range Interpretation Comments BUN/Creatinine Ratio (test code = 3097-3) 5 6-25 L [facility] CenterEstimat Glomerular Filtration Rate 2018-10-03 09:46:00* Test Item Value Reference Range Interpretation Comments Estimat Glomerular Filtration Rate (test code = 911066147) 5 >60 L Ranges were taken from the National Kidney Disease Education Program and the [facility] Kidney Foundation literature.Reference ranges:60 or greater: Jusfxx87-54 ( for 3 consecutive months): Chronic kidney disease 15 or less: Kidney failureCHRISTUS [facility] – [facility] CenterGlucose Vcknz4922-16-93 09:46:00* Test Item Value Reference Range Interpretation Comments Glucose Level (test code = WBJ4048) 78 74-118 [facility] CenterCalcium Fuwoe0866-91-94 09:46:00* Test Item Value Reference Range Interpretation Comments Calcium Level (test code = 71249-9) 7.6 8.4-10.2 L [facility] CenterTotal Hakpcrxzt4085-80-80 09:46:00* Test Item Value Reference Range Interpretation Comments Total Bilirubin (test code = 1975-2) 0.8 0.2-1.2 [facility] CenterAspartate Amino Transf (AST/SGOT) 2018-10-03 09:46:00* Test Item Value Reference Range Interpretation Comments Aspartate Amino Transf (AST/SGOT) (test code = Aspartate Amino Transf (AST/SGOT)) 13 5-34 [facility] CenterAlanine Aminotransferase (ALT/SGPT) 2018-10-03 09:46:00* Test Item Value Reference Range Interpretation Comments Alanine Aminotransferase (ALT/SGPT) (test code = 1742-6) 13 0-55 [facility] CenterTotal Sxopnjv7295-96-63 09:46:00* Test Item Value Reference Range Interpretation Comments Total Protein (test code = 2885-2) 7.2 6.5-8.1 [facility] CenterAlbumin2019-08-15 09:46:00* Test Item Value Reference Range Interpretation Comments Albumin (test code = 1751-7) 3.5 3.5-5.0 [facility] CenterGlobulin2019-08-15 09:46:00* Test Item Value Reference Range Interpretation Comments Globulin (test code = 24395-7) 3.7 2.3-3.5 H [facility] CenterAlbumin/Globulin Hxxde6934-64-70 09:46:00 * Test Item Value Reference Range Interpretation Comments Albumin/Globulin Ratio (test code = 1759-0) 0.9 0.8-2.0 [facility] CenterAlkaline Tsitredjdht7096-56-06 09:46:00* Test Item Value Reference Range Interpretation Comments Alkaline Phosphatase (test code = 6768-6) 460 40-150 H [facility] CenterProthrombin Xgni5290-14-28 09:46:00* Test Item Value Reference Range Interpretation Comments Prothrombin Time (test code = 5902-2) 13.3 11.9-14.5 [facility] CenterProthromb Time International Ratio 2018-10-03 09:46:00* Test Item Value Reference Range Interpretation Comments Prothromb Time International Ratio (test code = 6301-6) 0.96 Oral Anticoagulant Therapy INR Values:1. Low Intensity Therapy 1.5 - 2.02 . Moderate Intensity Therapy 2.0 - 3.03. High Intensity Therapy(1) 2.5 - 3. 54. High Intensity Therapy(2) 3.0 - 4.05. Panic Value INR > 5.0 [facility] CenterActivated Partial Thromboplast Time 2018-10-03 09:46:00* Test Item Value Reference Range Interpretation Comments Activated Partial Thromboplast Time (test code = 97544-9) 69.5 23.8-35.5 H [facility] CenterCHEST SINGLE (PORTABLE)2018-10-03 09:45:00 [facility] [address] [address] Patient Name: AIDA ZARATE MR #: [id number] : 1975 Age/Sex: 42/M Req #: [id number] Adm Physician: Ordered by: CANDIDO DELVALLE MD Report #: [id number] Location: ER Room/Bed: Procedure: [id number] D X/CHEST SINGLE (PORTABLE) Exam Date: 10/03/18 Exam T marisa: 0925 REPORT STATUS: Signed Chest, 1 view, 10/03/2018. History: Chest pain. Comparison: . Findings: The cardiomediastinal silhouette and pulmonary vasculatu re are within normal limits for a portable exam. There is no focal consolidati on or pleural effusion. There are no acute osseous or soft tissue abnormalitie s. Impression: No acute cardiopulmonary abnormality. Signed by: Speedy Stewart on 10/03/2018 9:45 AM Dictated By: GALLITO Estes ically Signed By: GALLITO STEWART MD on 10/03/18944 Transcribed By: ANTONIA on 10/03/18944 COPY TO: CANDIDO DELVALLE MD White Blood Count 2018-10-03 09:24:00* Test Item Value Reference Range Interpretation Comments White Blood Count (test code = 6690-2) 7.52 4.8-10.8 [facility] CenterRed Blood Uskef8352-08-12 09:24:00* Test Item Value Reference Range Interpretation Comments Red Blood Count (test code = 789-8) 3.98 4.3-5.7 L [facility] CenterHemoglobin2019-08-15 09:24:00* Test Item Value Reference Range Interpretation Comments Hemoglobin (test code = 69508-5) 13.2 14.0-18.0 L [facility] CenterHematocrit2019-08-15 09:24:00* Test Item Value Reference Range Interpretation Comments Hematocrit (test code = 4544-3) 39.2 38.2-49.6 [facility] CenterMean Corpuscular Mqwxud3212-78-14 09:24:00* Test Item Value Reference Range Interpretation Comments Mean Corpuscular Volume (test code = 787-2) 98.5 81-99 [facility] CenterMean Corpuscular Qscuxfsipd6997-57-62 09:24:00* Test Item Value Reference Range Interpretation Comments Mean Corpuscular Hemoglobin (test code = 785-6) 33.2 28-32 H [facility] CenterMean Corpuscular Hemoglobin Concent 2018-10-03 09:24:00* Test Item Value Reference Range Interpretation Comments Mean Corpuscular Hemoglobin Concent (test code = 786-4) 33.7 31-35 [facility] CenterRed Cell Distribution Xxjwc3625-60-87 09:24:00* Test Item Value Reference Range Interpretation Comments Red Cell Distribution Width (test code = 78081-6) 14.0 11.7 -14.4 [facility] CenterPlatelet Ilouo5796-61-43 09:24:00* Test Item Value Reference Range Interpretation Comments Platelet Count (test code = 777-3) 224 140-360 [facility] CenterNeutrophils (%) (Auto)2018-10-03 09:24:00 * Test Item Value Reference Range Interpretation Comments Neutrophils (%) (Auto) (test code = 46005-8) 63.7 38.7-80.0 [facility] CenterLymphocytes (%) (Auto)2018-10-03 09:24:00 * Test Item Value Reference Range Interpretation Comments Lymphocytes (%) (Auto) (test code = 736-9) 21.4 18.0-39.1 [facility] CenterMonocytes (%) (Auto)2018-10-03 09:24:00* Test Item Value Reference Range Interpretation Comments Monocytes (%) (Auto) (test code = 5905-5) 9.3 4.4-11.3 [facility] CenterEosinophils (%) (Auto)2018-10-03 09:24:00 * Test Item Value Reference Range Interpretation Comments Eosinophils (%) (Auto) (test code = 713-8) 4.5 0.0-6.0 [facility] CenterBasophils (%) (Auto)2018-10-03 09:24:00* Test Item Value Reference Range Interpretation Comments Basophils (%) (Auto) (test code = 706-2) 0.8 0.0-1.0 [facility] CenterIM GRANULOCYTES %2018-10-03 09:24:00* Test Item Value Reference Range Interpretation Comments IM GRANULOCYTES % (test code = IM GRANULOCYTES %) 0.3 0.0- 1.0 [facility] CenterNeutrophils # (Auto)2018-10-03 09:24:00* Test Item Value Reference Range Interpretation Comments Neutrophils # (Auto) (test code = 751-8) 4.8 2.1-6.9 [facility] CenterLymphocytes # (Auto)2018-10-03 09:24:00* Test Item Value Reference Range Interpretation Comments Lymphocytes # (Auto) (test code = 28088-6) 1.6 1.0-3.2 [facility] CenterMonocytes # (Auto)2018-10-03 09:24:00* Test Item Value Reference Range Interpretation Comments Monocytes # (Auto) (test code = 742-7) 0.7 0.2-0.8 [facility] CenterEosinophils # (Auto)2018-10-03 09:24:00* Test Item Value Reference Range Interpretation Comments Eosinophils # (Auto) (test code = 711-2) 0.3 0.0-0.4 [facility] CenterBasophils # (Auto)2018-10-03 09:24:00* Test Item Value Reference Range Interpretation Comments Basophils # (Auto) (test code = 704-7) 0.1 0.0-0.1 [facility] CenterAbsolute Immature Granulocyte (auto 2018-10-03 09:24:00* Test Item Value Reference Range Interpretation Comments Absolute Immature Granulocyte (auto (luis carlos t code = Absolute Immature Granulocyte (auto) 0.02 0-0.1 [facility] CenterCHEST SINGLE (PORTABLE)2017-12-04 12:27:00 [address] [address] Patient Name: AIDA ZARATE MR #: [id number] : 1975 Age/Sex: 41/M Req #: [id number] Adm Physician: Ordered by: VERONICA MILLAN MD Report #: [id number] Location: ER Room/Bed: Procedure: [id number] DX/ CHEST SINGLE (PORTABLE) Exam Date: 12/04/17 Exam Mario e: 1045 REPORT STATUS: Signed Ex amination: Single portable AP view of the chest. COMPARISON: None. IND ICATION: Chest pain, hypotension IMPRESSION: Exam limited by soft tissu e attenuation from patient's body habitus. 1. Lines and Tubes: None 2 . Lungs are grossly clear. No consolidation or effusion. 3. Cardiomediastin al silhouette is normal. Pulmonary vasculature is normal. 4. No acute bony abnormalities. Signed by: Dr. Gray Kaur M.D. on 12/04/2017 12:28 P M Dictated By: GRAY KAUR MD Transcribed By: ANTONIA on 12/04/178 COPY TO: VERONICA MILLAN MD POTASSIUM-STAT [id number] 07:51:00* Test Item Value Reference Range Interpretation Comments POTASSIUM (BEAKER) (test code = 379) 4.4 meq/L 3.6-5.5 BUN AND TRQTUTGJXT1240-89-53 13:11:00* Test Item Value Reference Range Interpretation Comments BLOOD UREA NITROGEN (BEAKER) (test code = 354) 41 mg/dL 7-21 H CREATININE (BEAKER) (test code = 358) 10.48 mg/dL 0.57-1.25 H EGFR (BEAKER) (test code = 1092) 5 mL/min/1.73 sq m ESTIMATED GFR IS NOT ACCURATE CREATININE CLEARANCE IN PREDICTING GLOMERULAR FILTRATION RATE. ESTIMATED GFR IS NOT APPLICABLE FOR DIALYSIS PATIENTS. VEWZXQFAWEGX2975-62-73 12:59:00* Test Item Value Reference Range Interpretation Comments SODIUM (BEAKER) (test code = 381) 141 meq/L 136-145 POTASSIUM (BEAKER) (test code = 379) 5.1 meq/L 3.5-5.1 CHLORIDE (BEAKER) (test code = 382) 98 meq/L 98-107 CO2 (BEAKER) (test code = 355) 28 meq/L 22-29 EHOUFCYEMZ4272-97-40 12:18:00* Test Item Value Reference Range Interpretation Comments HEMOGLOBIN (BEAKER) (test code = 410) 15.4 GM/DL 13.7-17.5 BASIC METABOLIC BMJPS5075-22-03 18:38:00* Test Item Value Reference Range Interpretation Comments SODIUM (BEAKER) (test code = 381) 137 meq/L 136-145 POTASSIUM (BEAKER) (test code = 379) 4.5 meq/L 3.5-5.1 CHLORIDE (BEAKER) (test code = 382) 95 meq/L 98-107 L CO2 (BEAKER) (test code = 355) 29 meq/L 22-29 BLOOD UREA NITROGEN (BEAKER) (test code = 354) 29 mg/dL 7-21 H CREATININE (BEAKER) (test code = 358) 7.46 mg/dL 0.57-1.25 H GLUCOSE RANDOM (BEAKER) (test code = 652) 100 mg/dL 70-105 CALCIUM (BEAKER) (test code = 697) 8.9 mg/dL 8.4-10.2 EGFR (BEAKER) (test code = 1092) 8 mL/min/1.73 sq m ESTIMATED GFR IS NOT ACCURATE CREATININE CLEARANCE IN PREDICTING GLOMERULAR FILTRATION RATE. ESTIMATED GFR IS NOT APPLICABLE FOR DIALYSIS PATIENTS. CBC W/PLT COUNT & AUTO TARCSGVEYEYM4815-21-70 18:12:00* Test Item Value Reference Range Interpretation Comments WHITE BLOOD CELL COUNT (BEAKER) (test code = 775) 5.8 K/ L 3.5- 10.5 RED BLOOD CELL COUNT (BEAKER) (test code = 761) 4.95 M/ L 4.63-6 .08 HEMOGLOBIN (BEAKER) (test code = 410) 15.8 GM/DL 13.7-17.5 HEMATOCRIT (BEAKER) (test code = 411) 47.9 % 40.1-51.0 MEAN CORPUSCULAR VOLUME (BEAKER) (test code = 753) 96.8 fL 79. 0-92.2 H MEAN CORPUSCULAR HEMOGLOBIN (BEAKER) (test code = 751) 31.9 pg 25.7-32.2 MEAN CORPUSCULAR HEMOGLOBIN CONC (BEAKER) (test code = 752) 33.0 GM/DL 32.3-36.5 RED CELL DISTRIBUTION WIDTH (BEAKER) (test code = 412) 14.9 % 11.6-14.4 H PLATELET COUNT (BEAKER) (test code = 756) 152 K/CU MM 150-450 MEAN PLATELET VOLUME (BEAKER) (test code = 754) 9.9 fL 9.4-12 .4 NUCLEATED RED BLOOD CELLS (BEAKER) (test code = 413) 0 /100 WBC 0 -0 NEUTROPHILS RELATIVE PERCENT (BEAKER) (test code = 429) 56 % LYMPHOCYTES RELATIVE PERCENT (BEAKER) (test code = 430) 31 % MONOCYTES RELATIVE PERCENT (BEAKER) (test code = 431) 8 % EOSINOPHILS RELATIVE PERCENT (BEAKER) (test code = 432) 4 % BASOPHILS RELATIVE PERCENT (BEAKER) (test code = 437) 1 % NEUTROPHILS ABSOLUTE COUNT (BEAKER) (test code = 670) 3.25 K/ L 1.78-5.38 LYMPHOCYTES ABSOLUTE COUNT (BEAKER) (test code = 414) 1.79 K/ L 1.32-3.57 MONOCYTES ABSOLUTE COUNT (BEAKER) (test code = 415) 0.47 K/ L 0. 30-0.82 EOSINOPHILS ABSOLUTE COUNT (BEAKER) (test code = 416) 0.24 K/ L 0.04-0.54 BASOPHILS ABSOLUTE COUNT (BEAKER) (test code = 417) 0.04 K/ L 0. 01-0.08 IMMATURE GRANULOCYTES-RELATIVE PERCENT (BEAKER) (test code = 2801) 1 % 0-1 B-Type Natriuretic Sbcuwen8773-82-47 11:21:00* Test Item Value Reference Range Interpretation Comments B-Type Natriuretic Peptide (test code = 31911-2) -10.0 0-100 [facility]odium Anbzs6188-85-97 11:17:00* Test Item Value Reference Range Interpretation Comments Sodium Level (test code = 2951-2) 137 136-145 [facility] CenterPotassium Fsfme6922-41-26 11:17:00* Test Item Value Reference Range Interpretation Comments Potassium Level (test code = 2823-3) 4.1 3.5-5.1 [facility] CenterChloride Rhdup9857-61-48 11:17:00* Test Item Value Reference Range Interpretation Comments Chloride Level (test code = 2075-0) 93 98-107 L [facility] CenterCarbon Dioxide Ykikf7441-61-67 11:17:00* Test Item Value Reference Range Interpretation Comments Carbon Dioxide Level (test code = 2028-9) 30 22-29 H [facility] CenterAnion Drl6164-19-74 11:17:00* Test Item Value Reference Range Interpretation Comments Anion Gap (test code = 69442-3) 18.1 8-16 H [facility] CenterBlood Urea Ckhyhqtt9948-34-29 11:17:00* Test Item Value Reference Range Interpretation Comments Blood Urea Nitrogen (test code = 3094-0) 27 7-26 H [facility] CenterCreatinine2018-04-21 11:17:00* Test Item Value Reference Range Interpretation Comments Creatinine (test code = 2160-0) 6.49 0.72-1.25 H [facility] CenterBUN/Creatinine Iaxdk9599-73-12 11:17:00* Test Item Value Reference Range Interpretation Comments BUN/Creatinine Ratio (test code = 3097-3) 4 6-25 L [facility] CenterEstimat Glomerular Filtration Rate 2017-06-09 11:17:00* Test Item Value Reference Range Interpretation Comments Estimat Glomerular Filtration Rate (test code = 41143-5) 9 >60 L Ranges were taken from the National Kidney Disease Education Program and the [facility] Kid[facility] Foundation literature.Reference ranges:60 or greater: Cludhg11-19 ( for 3 consecutive months): Chronic kidney disease 15 or less: Kidney failureCHRISTUS [facility] – [facility] CenterGlucose Zmwox0788-25-44 11:17:00* Test Item Value Reference Range Interpretation Comments Glucose Level (test code = HCS6411) 87 74-118 [facility] CenterCalcium Appei9688-06-68 11:17:00* Test Item Value Reference Range Interpretation Comments Calcium Level (test code = 83813-6) 8.7 8.4-10.2 [facility] CenterTotal Waxnxajkd7328-69-58 11:17:00* Test Item Value Reference Range Interpretation Comments Total Bilirubin (test code = 1975-2) 0.9 0.2-1.2 [facility] CenterAspartate Amino Transf (AST/SGOT) 2017-06-09 11:17:00* Test Item Value Reference Range Interpretation Comments Aspartate Amino Transf (AST/SGOT) (test code = Aspartate Amino Transf (AST/SGOT)) 15 5-34 [facility] CenterAlanine Aminotransferase (ALT/SGPT) 2017-06-09 11:17:00* Test Item Value Reference Range Interpretation Comments Alanine Aminotransferase (ALT/SGPT) (test code = 1742-6) 16 0-55 [facility] CenterTotal Oeuuuwf0744-43-25 11:17:00* Test Item Value Reference Range Interpretation Comments Total Protein (test code = 2885-2) 8.7 6.5-8.1 H [facility] CenterAlbumin2018-04-21 11:17:00* Test Item Value Reference Range Interpretation Comments Albumin (test code = 1751-7) 3.8 3.5-5.0 [facility] CenterGlobulin2018-04-21 11:17:00* Test Item Value Reference Range Interpretation Comments Globulin (test code = 13304-3) 4.9 2.3-3.5 H [facility] CenterAlbumin/Globulin Augmp5245-85-77 11:17:00 * Test Item Value Reference Range Interpretation Comments Albumin/Globulin Ratio (test code = 1759-0) 0.8 0.8-2.0 [facility] CenterAlkaline Oatquejsojn2815-31-97 11:17:00* Test Item Value Reference Range Interpretation Comments Alkaline Phosphatase (test code = 6768-6) 409 40-150 H [facility] CenterAmylase Wfxnp2131-01-24 11:17:00* Test Item Value Reference Range Interpretation Comments Amylase Level (test code = 1798-8) 277 25-125 H [facility] CenterLipase2018-04-21 11:17:00* Test Item Value Reference Range Interpretation Comments Lipase (test code = 3040-3) 70 8-78 [facility] CenterActivated Partial Thromboplast Time 2017-06-09 11:13:00* Test Item Value Reference Range Interpretation Comments Activated Partial Thromboplast Time (test code = 34881-1) 33.0 23.8-35.5 [facility] CenterProthrombin Cpxq6392-93-49 11:08:00* Test Item Value Reference Range Interpretation Comments Prothrombin Time (test code = 5902-2) 12.7 11.9-14.5 [facility] CenterProthromb Time International Ratio 2017-06-09 11:08:00* Test Item Value Reference Range Interpretation Comments Prothromb Time International Ratio (test code = 6301-6) 1.03 Oral Anticoagulant Therapy INR Values:1. Low Intensity Therapy 1.5 - 2.02 . Moderate Intensity Therapy 2.0 - 3.03. High Intensity Therapy(1) 2.5 - 3. 54. High Intensity Therapy(2) 3.0 - 4.05. Panic Value INR > 5.0 [facility] CenterWhite Blood Evcgx2106-35-78 10:59:00* Test Item Value Reference Range Interpretation Comments White Blood Count (test code = 6690-2) 6.21 4.8-10.8 [facility] CenterRed Blood Pwugv6284-71-26 10:59:00* Test Item Value Reference Range Interpretation Comments Red Blood Count (test code = 789-8) 5.25 4.3-5.7 [facility] CenterHemoglobin2018-04-21 10:59:00* Test Item Value Reference Range Interpretation Comments Hemoglobin (test code = 20503-0) 16.8 14.0-18.0 [facility] CenterHematocrit2018-04-21 10:59:00* Test Item Value Reference Range Interpretation Comments Hematocrit (test code = 4544-3) 49.8 38.2-49.6 H [facility] CenterMean Corpuscular Uepyja7570-16-76 10:59:00* Test Item Value Reference Range Interpretation Comments Mean Corpuscular Volume (test code = 787-2) 94.9 81-99 [facility] CenterMean Corpuscular Iznklkjtup5435-22-15 10:59:00* Test Item Value Reference Range Interpretation Comments Mean Corpuscular Hemoglobin (test code = 785-6) 32.0 28-32 [facility] CenterMean Corpuscular Hemoglobin Concent 2017-06-09 10:59:00* Test Item Value Reference Range Interpretation Comments Mean Corpuscular Hemoglobin Concent (test code = 786-4) 33.7 31-35 [facility] CenterRed Cell Distribution Mhftd0382-45-69 10:59:00* Test Item Value Reference Range Interpretation Comments Red Cell Distribution Width (test code = 13301-4) 14.8 11.7 -14.4 H [facility] CenterPlatelet Xgxvy0774-88-56 10:59:00* Test Item Value Reference Range Interpretation Comments Platelet Count (test code = 777-3) 174 140-360 [facility] CenterNeutrophils (%) (Auto)2017-06-09 10:59:00 * Test Item Value Reference Range Interpretation Comments Neutrophils (%) (Auto) (test code = 48771-4) 61.8 38.7-80.0 [facility] CenterLymphocytes (%) (Auto)2017-06-09 10:59:00 * Test Item Value Reference Range Interpretation Comments Lymphocytes (%) (Auto) (test code = 736-9) 25.3 18.0-39.1 [facility] CenterMonocytes (%) (Auto)2017-06-09 10:59:00* Test Item Value Reference Range Interpretation Comments Monocytes (%) (Auto) (test code = 5905-5) 8.1 4.4-11.3 [facility] CenterEosinophils (%) (Auto)2017-06-09 10:59:00 * Test Item Value Reference Range Interpretation Comments Eosinophils (%) (Auto) (test code = 713-8) 4.0 0.0-6.0 [facility] CenterBasophils (%) (Auto)2017-06-09 10:59:00* Test Item Value Reference Range Interpretation Comments Basophils (%) (Auto) (test code = 706-2) 0.5 0.0-1.0 [facility] CenterIM GRANULOCYTES %2017-06-09 10:59:00* Test Item Value Reference Range Interpretation Comments IM GRANULOCYTES % (test code = IM GRANULOCYTES %) 0.3 0.0- 1.0 [facility] CenterNeutrophils # (Auto)2017-06-09 10:59:00* Test Item Value Reference Range Interpretation Comments Neutrophils # (Auto) (test code = 751-8) 3.8 2.1-6.9 [facility] CenterLymphocytes # (Auto)2017-06-09 10:59:00* Test Item Value Reference Range Interpretation Comments Lymphocytes # (Auto) (test code = 75960-7) 1.6 1.0-3.2 [facility] CenterMonocytes # (Auto)2017-06-09 10:59:00* Test Item Value Reference Range Interpretation Comments Monocytes # (Auto) (test code = 742-7) 0.5 0.2-0.8 [facility] CenterEosinophils # (Auto)2017-06-09 10:59:00* Test Item Value Reference Range Interpretation Comments Eosinophils # (Auto) (test code = 711-2) 0.3 0.0-0.4 [facility] CenterBasophils # (Auto)2017-06-09 10:59:00* Test Item Value Reference Range Interpretation Comments Basophils # (Auto) (test code = 704-7) 0.0 0.0-0.1 [facility] CenterAbsolute Immature Granulocyte (auto 2017-06-09 10:59:00* Test Item Value Reference Range Interpretation Comments Absolute Immature Granulocyte (auto (luis carlos t code = Absolute Immature Granulocyte (auto) 0.02 0-0.1 [facility] CenterACTH Dvlhharo5322-62-58 19:55:00* Test Item Value Reference Range Interpretation Comments ACTH Baseline (test code = 2141-0) 38.8 7.2-63.3 ACTH reference interval for samples collected between 7 and10 AM.Performed at: - [address] [id number] Director: Michael Kenney MD, Phone: [phone] [facility] – Medical CenterHepatitis B Surface Zpwhpar8295-62-41 06:10:00* Test Item Value Reference Range Interpretation Comments Hepatitis B Surface Antigen (test code = 5196-1) Negative Negat mars Performed at: - [address] [id number] Director: Michael Kenney MD, Phone: [phone] [facility] – Medical CenterCreatine Kinase PS1875-11-16 06:52:00* Test Item Value Reference Range Interpretation Comments Creatine Kinase MB (test code = 91918-3) 0.40 0.00-5.00 [facility] CenterTroponin H8066-00-33 06:52:00* Test Item Value Reference Range Interpretation Comments Troponin I (test code = IWF0456) 0.009 0-0.300 [facility] CenterCreatine Aduhpe2014-98-83 06:33:00* Test Item Value Reference Range Interpretation Comments Creatine Kinase (test code = 2157-6) 66 30-200 [facility] CenterThyroid Peroxidase Tpitsyaofu6416-73-82 05:44:00* Test Item Value Reference Range Interpretation Comments Thyroid Peroxidase Antibodies (test code = 8099-4) 183 0-3 4 H Performed at: [facility] [id number] Director: Michael Kenney MD, Phone: [phone] [facility] – Medical CenterFree Vsczbzjow4150-03-65 15:24:00* Test Item Value Reference Range Interpretation Comments Free Thyroxine (test code = 3024-7) 0.82 0.8-1.8 [facility] CenterThyroid Stimulating Hormone (TSH) 2017-01-08 15:24:00* Test Item Value Reference Range Interpretation Comments Thyroid Stimulating Hormone (TSH) (test code = 11250-3) 13.697 0.350-4.940 H [facility] CenterCortisol AM Vemepx6492-04-77 19:03:00* Test Item Value Reference Range Interpretation Comments Cortisol AM Sample (test code = 9813-7) 15.7 6.2-19.4 Performed at: [facility] [id number] Director: Michael Kenney MD, Phone: [phone] Santa Rosa Hospital – Medical CenterCortisol PM Lffsxj3555-73-62 19:03:00* Test Item Value Reference Range Interpretation Comments Cortisol PM Sample (test code = 9812-9) 5.5 2.3-11.9 NO TIME ON THE TUBEPerformed at: - LabCoJustin [facility]ille [address] [place], [place] [id number] Director: Michael Kenney MD, Phone: [phone] [facility] – Medical CenterTriglycerides Okfmp4353-22-76 07:37:00* Test Item Value Reference Range Interpretation Comments Triglycerides Level (test code = 2571-8) 222 0-149 H [facility] CenterCholesterol Maqma6155-31-50 07:37:00* Test Item Value Reference Range Interpretation Comments Cholesterol Level (test code = 2093-3) 207 0-199 H Less than 200 mg/dL Low Hknp563 - 239 mg/dL Borderline Rufb550 m g/dl and greater High Risk [facility] CenterLDL Outsozzpkvk5981-51-23 07:37:00* Test Item Value Reference Range Interpretation Comments LDL Cholesterol (test code = 11272-7) 126 60-130 [facility] Medical CenterHDL Udgkosdrvwd9197-25-23 07:37:00* Test Item Value Reference Range Interpretation Comments HDL Cholesterol (test code = 2085-9) 37 40-60 L [facility] CenterCholesterol/HDL Guade9669-56-19 07:37:00 * Test Item Value Reference Range Interpretation Comments Cholesterol/HDL Ratio (test code = 9830-1) 5.6 3.9-4.7 H [facility] CenterCT ABDOMEN/PELVIS [facility] [address] [place] [address] Patient Name: AIDA ZARATE MR #: [id number] : 1975 Age/Sex: 41/M Req #: [id number] Adm Physician: Ordered by: CECILE LOUIS NP Report #: [id number] Location: ER Room/Bed: Procedure: [id number] CT/CT ABDOMEN/PELVIS WO Exam Date: 06/09/17 Exam Time: 1213 REPORT STATUS: Signed EXAM: CT Abdomen and Pelvis WITHOUT contrast INDICATION: S O ral contrast only, R/o Encarcerated Hernia. Discovered he had a hernia one yea r ago. Last night hernia started hurting in the mid abdomen. COMPARISON: Non e. TECHNIQUE: Abdomen and pelvis were scanned utilizing a multidetector helica l scanner from the lung base to the pubic symphysis without administration of IV contrast. Absence of intravenous contrast decreases sensitivity for detecti on of focal lesions and vascular pathology. Coronal and sagittal reformations were obtained. Routine protocol was performed. IV CONTRAST: None ORAL CONTRAST: Readicat COMPLICATIONS: None RADIATION DO SE: Total DLP: 1455.4 mGy*cm Estimated effective dose: (DLP x 0.01 5 x size factor) mSv CTDIvol has been reviewed. It is below the limits se t by the Radiation Protocol Committee (RPC). FINDINGS: LINES and TUB ES: None. LOWER THORAX: Unremarkable HEPATOBILIARY: No focal hep atic lesions. No biliary ductal dilation. GALLBLADDER: No radio-opaque sto radhames or sludge. No wall thickening. SPLEEN: No splenomegaly. PANCREAS : No focal masses or ductal dilatation. ADRENALS: No adrenal nodules KIDNEYS/URETERS: Left kidney surgically absent. Right kidney is atrophic. T race right hydronephrosis. Multiple small cystic lesions are incompletely eval uated. 1.6 cm stone in the upper pole. 1.1 cm stone in the lower pole. 0.8 cm in the proximal right ureter. GI TRACT: No abnormal distention, wall thi ckening, or evidence of bowel obstruction. Small bowel loops measures 2.5 cm in maximum dimension. Appendix is normal. PELVIC ORGANS/BLADDER: Unremar kable. LYMPH NODES: No lymphadenopathy. VESSELS: Unremarkable. PE RITONEUM / RETROPERITONEUM: No free air or fluid. BONES: Unremarkable. SOFT TISSUES: Partially visualized left abdominal wall hernia containing the splenic flexure of the colon, the sigmoid colon, and a short segment of the je junum. The neck measures 10 cm. No evidence of incarceration. IMP RESSION: 1. There is insufficient time for the positive oral contrast to mikhail ch the rectum. However, the small bowel loops are uniform in size and wall thi ckness with no evidence of obstruction. 2. A large left abdominal wall justino ia containing the splenic flexure of the colon, the sigmoid colon, short segme nt of the jejunum. The neck of the hernia measures 10 cm. No fluid or wall thi ckening to suggest incarceration or strangulation. 3. Left nephrectomy. Atr ophic right kidney with 3 large right renal stones. Signed by: Dr. Chepe Harris M.D. on 06/09/2017 12:59 PM Dictated By: CHEPE HARRIS MD 125 Transcribed By: ANTONIA on 06/09/17 125 COPY TO: CECILE LOUIS NP FLUORO GUIDANCE [address]/REM [place] [address] Patient Name: AIDA ZARATE MR #: [id number] : Age/Sex: 41/M Req #: [id number] Adm Physician: MIGUE AGUIRRE MD Ordered by: VERONICA MILLAN MD Report #: [id number] Locat ion: MED/SURG3 Room/Bed: [facility] Procedure: [id number] D X/FLUORO GUIDANCE JAYLEN RACHELLE PL/REM Exam Date: 01/08/17 Exam Time: 1800 REPORT STATUS: Signed PROCEDURE: NON-TUNNELLED CVC C ATH PLACMNT COMPARISON: None. INDICATIONS: Patient in need of IV access. COMPLICATIONS: None MEDICATIONS: 1% Xylocaine BLOOD LOSS: Minimal PROCEDURE: Following informed consent, sterile preparation of the right neck was accomplished. 1% lidocaine was infiltrated in the soft tissues . Ultrasound was utilized for vascular access and placement of a 21 gauge skinny needle into the right internal jugular vein. This was followed by a 0. 018 inch wire and then a micropuncture sheath which was placed with fluorosco pic guidance. Through the micropuncture sheath a 0.035 inch Amplatz Super Sti ff wire was placed. A 7 [place] 15 cm long arrow triple-lumen central line was then inserted over the wire with fluoroscopic guidance. The line is OK for immediate use. CONCLUSION: Successful placement of a triple-lumen jaylen tral line utilizing ultrasound and fluoroscopic guidance. Baudilio sunshine D.O. Dictated by: Baudilio Roblero D.O. on 01/17/2017 at 10:10 Elec tronically approved by: Baudilio Roblero D.O. on 01/17/2017 at 10:10 Dictated By: BAUDILIO ROBLERO DO 1010 Transcribed By: YUAN on 01/17/17 1010 COPY TO: VERONICA MILLAN MD CHEST SINGLE (PORTABLE) [place] [address] Patient Name: AIAD ZARATE MR #: [id number] : 1975 Age/Sex: 41/M Req #: [id number] Adm Physician: Ordered by: VERONICA MILLAN MD Report #: [id number] Location: ER Room/Bed: Procedure: [id number] DX/CHEST SINGLE (PORTABLE) Ex am Date: 01/08/17 Exam Time: 0840 REPORT STATUS : Signed PROCEDURE: CHEST SINGLE (PORTABLE) TECHNIQUE: Portable AP ches t INDICATION: Chest pain COMPARISON: [facility], DX, CHEST SINGLE (NOT PORTABLE), 12/28/2016, 10:54. FINDINGS: Clear, symmetrica lly inflated lungs. No pleural effusions. Normal heart size and mediastinal c ontour for technique. Intact skeleton. Study limited by underpenetration seco ndary to body habitus and portable technique. CONCLUSION: Limited study without acute abnormality or interval change from December 28. Dictated by: Ashley Montes M.D. on 01/08/2017 at 8:57 Electr onically approved by: Ashley Montes M.D. on 01/08/2017 at 8:57 Dictated By: ASHLEY MONTES MD 6 Transcribed By: YUAN on 01/08/17856 COPY TO: VERONICA PARDO MD NON-TUNNELLED CVC CATH PLACMNT [place] [address] Patient Name: AIDA ZARATE MR #: [id number] : 1975 Age/Sex: 41/M Req #: [id number] Adm Physician: MIGUE WERNER MD Ordered by: VERONICA MILLAN MD Report #: [id number] Location: [facility] Room/Bed: [facility] Procedure: [id number] I R/NON-TUNNELLED CVC CATH PLACMNT Exam Date: 01/08/17 Exam Time: 1800 REPORT STATUS: Signed PROCEDURE: NON-TUNNELLED CVC C ATH PLACMNT COMPARISON: None. INDICATIONS: Patient in need of IV access. COMPLICATIONS: None MEDICATIONS: 1% Xylocaine BLOOD LOSS: Minimal PROCEDURE: Following informed consent, sterile preparation of the right neck was accomplished. 1% lidocaine was infiltrated in the soft tissues . Ultrasound was utilized for vascular access and placement of a 21 gauge skinny needle into the right internal jugular vein. This was followed by a 0. 018 inch wire and then a micropuncture sheath which was placed with fluorosco pic guidance. Through the micropuncture sheath a 0.035 inch Amplatz Super Sti ff wire was placed. A 7 [place] 15 cm long arrow triple-lumen central line was then inserted over the wire with fluoroscopic guidance. The line is OK for immediate use. CONCLUSION: Successful placement of a triple-lumen jaylen tral line utilizing ultrasound and fluoroscopic guidance. Baudilio sunshine D.O. Dictated by: Baudilio Roblero D.O. on 01/17/2017 at 10:10 Elec tronically approved by: Baudilio Roblero D.O. on 01/17/2017 at 10:10 Dictated By: BAUDILIO ROBLERO DO 1010 Transcribed By: YUAN on 01/17/17 1010 COPY TO: VERONICA MILLAN MD CHEST SINGLE (NOT PORTABLE) [place] [address] Patient Name: AIDA ZARATE MR #: [id number] : 1975 Age/Sex: 41/M Req #: [id number] Adm Physician: Ordered by: VERONICA DEL CASTILLO MD Report #: [id number] Location: ER Room/Bed: Procedure: [id number] DX/CHEST SINGLE (NOT PORTABLE) Exam Date: 12/28/16 Exam Time: [address] ATUS: Signed PROCEDURE: X-RAY CHEST, ONE VIEW COMPARISON: None. INDICATIONS: CHEST PAIN, DIZZINESS FINDINGS: Limited evaluation due to patient habitus. The lungs are well-inflated. No gross consolidatio n, pleural effusion, or pneumothorax. Cardiomediastinal contour and pulmonary vasculature are within normal limits for portable, AP technique. No ac solomon osseous abnormalities. CONCLUSION: No acute cardiopulmonary a bnormality. Dictated by: Edison Ortiz M.D. on 12/28/2016 at 11:21 Electronically approved by: Edison Ortiz M.D. on 12/28/2016 at 11:21 Dictated By: EDISON ORTIZ MD 112 Transcribed By: YUAN on 12/28/16 1121 COPY TO: VERONICA DEL CASTILLO MD US RENAL RETROPERITONEAL COMP [place] [address] Patient Name: AIDA ZARATE MR #: [id number] : 1975 Age/Sex: 41/M Req #: [id number] Adm Physician: MIGUE WERNER MD Ordered by: KRISTOPHER BUCKNER, CHACHA BUCKNER Report #: [id number] Location: [facility] Room/Bed: [place] [address] Procedure: [id number] US /US RENAL RETROPERITONEAL COMP Exam Date: 12/28/16 E xam Time: 1618 REPORT STATUS: Signed PROCEDURE: US [...] are identified on CT or the previous ultrasoun d. Stones: Intrarenal calculi identified on CT were not visualized sonogra phically. Hydronephrosis: Mild pelviectasis. Echogenicity: Mildly increased LEFT KIDNEY: Absent. No mass in the nephrectomy bed. Bladder: Co llapsed Survey images of the liver and spleen demonstrate no evidence of m ass. CONCLUSION: 1. Atrophic right kidney with mild pelviectasis . Increased renal echotexture is suggestive of medical renal disease. 2. Hypoechoic mass in the right kidney has the appearance of a cyst. 3. Left n ephrectomy. 4. No sonographic evidence of renal calculi. Dictated by : Liyah Bustillos M.D. on 12/28/2016 at 17:09 Electronically approved b y: Liyah Bustillos M.D. on 12/28/2016 at 17:09 Dictated By: LIAYH BUSTILLOS MD 08 Transcribed By: YUAN on 12/28/161708 COPY TO: CHACHA SUMMERS
--- OUTSIDE RECORDS SUMMARY | 2019-12-05 11:13 | XMS REPORT | Clinical Summary ---
Author Author [facility] Address Unknown Phone Unavailable Care Team Providers Care Materials Handling Equipment Operator Name Role Phone Bebeto Ch PCP Allergies [...] Used Never Smoker Smokeless Tobacco: Never Used Drinks/Week oz/Week Comments Alcohol Use No Sex Assigned at Date Recorded Not on file Last Filed Vital Signs Not on file Plan of Treatment Not on file Results Not on fileafter 12/04/2018 Insurance Type Payer Benefit Subscriber ID Effective Phone Address Plan / Dates Group Medicare MEDICARE MEDICARE A [id number] 2013-P B resent Medicaid MEDICAID MEDICAID [id number] 2017[facility] Present [phone] Advance Directives For more information, please contact: [phone] Date Inactivated Comments Code Status Date Activated 07/06/2017 5:06 PM Full Code 07/06/2017 7:15 AM This code status was determined by: Patient
[2019-12-05] MEDS ORDERED: NITROGLYCERIN 2% OINT 1 GM PKT TOP ONE (11:15)
[2019-12-05] MEDS ORDERED: ASPIRIN 81 MG CHEW TAB PO ONE (11:15)
[2019-12-05] MEDS ORDERED: ASPIRIN 81 MG CHEW TAB ONE (11:47)
[2019-12-05] MEDS ORDERED: NITROGLYCERIN 2% OINT 1 GM PKT ONE (11:48)
[2019-12-05] MEDS ORDERED: ENOXAPARIN SODIUM INJ 100 MG/ML SYR SC ONE (11:48)
--- NOTE | 2019-12-05 11:49 | Diagnostic Imaging Report ---
EXAM: CXR 2 VIEW - [facility] DATE: 12/05/2019 11:36 AM INDICATION: [place] of breath, chest pain COMPARISON: CT abdomen/pelvis from 10/29/2018 Chest radiograph from 10/03/2018 FINDINGS: Right-sided IJ chest port identified with distal tip terminating within the SVC. The trachea is midline. The lungs are symmetrically expanded without evidence for large focal consolidation, pneumothorax, or significant pleural effusion. The cardiomediastinal silhouette is stable in appearance. The pulmonary vasculature is within normal limits. The diffusely sclerotic appearing vertebral bodies noted likely reflecting sequela of renal osteodystrophy, better evaluated on prior CT examinations. No acute osseous abnormality is identified. The surrounding soft tissues are unremarkable. IMPRESSION: No acute cardiopulmonary process identified. Signed by: Dr. Shaheen Rose MD on 12/05/2019 11:46 AM
[2019-12-05 11:59] LABS: BASOPHILS % 0.4 % (0.0-1.0); EOSINOPHILS # (AUTO) 0.1 (0.0-0.4); EOSINOPHILS % 0.5 % (0.0-6.0); HEMATOCRIT 38.8 % (38.2-49.6); HEMOGLOBIN 12.8 g/dL (14.0-18.0); LYMPHOCYTES # (AUTO) 1.9 (1.0-3.2); LYMPHOCYTES % 20.6 % (18.0-39.1); MEAN CORPUSCULAR HEMOGLOBIN 32.4 pg (28-32); MEAN CORPUSCULAR VOLUME 98.2 fL (81-99); MONOCYTES # (AUTO) 0.8 (0.2-0.8); MONOCYTES % 8.4 % (4.4-11.3); NEUTROPHILS # (AUTO) 6.5 (2.1-6.9); NEUTROPHILS % 69.7 % (38.7-80.0); PLATELET COUNT 184 x10e3/uL (140-360); RED BLOOD COUNT 3.95 x10e6/uL (4.3-5.7); RED CELL DISTRIBUTION WIDTH 13.7 % (11.7-14.4)
--- NOTE | 2019-12-05 12:01 | Emergency Department Note ---
History of Present Illnes History of Present Illness Chief Complaint: increased sob/ new cp while having dialysis History of Present Illness This is a 43 year old male . Historian: Patient Arrival Mode: Car History limited by: developmental delay (normal) Straight Line Press Setter Required: No Onset (how long ago): week(s) (2) Location: substernal Quality: start Radiation: Reports non-radiation Severity: moderate Onset quality: gradual Duration (how long): week(s) (2) Timing of current episode: constant Chronicity: new Context: Denies recent illness, Denies recent surgery, Denies recent immobilization, Denies recent travel, Denies trauma/injury, Denies new medications, Denies hx of DVT/PE, Denies non-compliance w/ medications Relieving factors: rest Exacerbating factors: movement Associated symptoms: Reports chest pain, Reports shortness of breath Treatments prior to arrival: none Past Medical/Family History Physician Review I have reviewed the patient's past medical and family history. Any updates have been documented here. Past Medical History Recent Fever: No Clinical Suspicion of Infectio: No New/Unexplained Change in Ment: No Past Medical History: Hypertension, Hypothyroidism, Kidney Stones, ESRD, Hemodyalisis, Other Mental Illness Other Medical History: RA Bipolar Past Surgical History: Bariatric Surgery Other Surgery: Lithotripsy left neck lymph node removal left kidney removal Heel surgery Fistula Gastric sleeve Social History Smoking Cessation: Current some day smoker Counseling Performed: Yes Alcohol Use: None Any Illegal Drug Use: No Physically hurt or threatened: No Other Last Tetanus: 2010 Any Pre-Existing Lines (PICC,: No Review of Systems Review of Systems Constitutional: Reports malaise EENTM: Reports no symptoms Cardiovascular: Reports chest pain Respiratory: Reports as per HPI Gastrointestinal: Reports no symptoms Genitourinary: Reports no symptoms Musculoskeletal: Reports no symptoms Integumentary: Reports no symptoms Neurological: Reports no symptoms Psychological: Reports no symptoms Endocrine: Reports no symptoms Hematological/Lymphatic: Reports no symptoms Review of other systems: All other systems negative Physical Exam Related Data Allergies: Coded Allergies: Iodinated Contrast Media (Verified Allergy, Intermediate, HIVES, 10/03/18) Triage Vital Signs Vital Signs Date Time Temp Pulse Resp B/P (MAP) Pulse Ox O2 Delivery O2 Flow Rate FiO2 12/05/19 10:10 98.1 54 22 170/77 99 Room Air Vital signs reviewed: Yes Physical Exam CONSTITUTIONAL Constitutional: Present well-developed, Present well-nourished HENT HENT: Present normocephalic, Present atraumatic, Present oropharynx clear/moist, Present nose normal HENT L/R: Present left ext ear normal, Present right ext ear normal EYES Eyes: Reports PERRL, Reports conjunctivae normal NECK Neck: Present ROM normal, Present supple PULMONARY Pulmonary: Present effort normal, Present breath sounds normal CARDIOVASCULAR Cardiovascular: Present regular rhythm, Present heart sounds normal, Present capillary refill normal, Present normal rate GASTROINTESTINAL Abdominal: Present soft, Present nontender, Present bowel sounds normal GENITOURINARY Genitourinary: Present exam deferred SKIN Skin: Present warm, Present dry MUSCULOSKELETAL Musculoskeletal: Present ROM normal NEUROLOGICAL Neurological: Present alert, Present oriented x 3, Present no gross motor or sensory deficits PSYCHOLOGICAL Psychological: Present mood/affect normal, Present judgement normal Results Laboratory Lab results reviewed: Yes Laboratory comments BMP NORMAL EXCEPT CR=10.8, LFT NORMAL EXCEPT ALP= 366, IQQDWZD=661, CARDIAC ENZYMES NORMAL EXCEPT BRYANT GREATER THAN 500, D XONYP=064, TIA=495 Imaging Imaging results reviewed: Yes Impressions [place] [id number] Patient Name: AIDA ZARATE MR #: [id number] : 1975 Age/Sex: 43/M Req #: [id number] Adm Physician: Ordered by: DWAIN GARCIA Report #: [id number] Location: [facility] Room/Bed: Procedure: [id number] HOPD/CXR 2 VIEW - HOPD Exam Date: 12/05/19 Exam Time: 1136 REPORT STATUS: Signed EXAM: CXR 2 VIEW - HOPD DATE: 12/05/2019 11:36 AM INDICATION: Winkler of breath, chest pain COMPARISON: CT abdomen/pelvis from 10/29/2018 Chest radiograph from 10/03/2018 FINDINGS: Right-sided IJ chest port identified with distal tip terminating within the SVC. The trachea is midline. The lungs are symmetrically expanded without evidence for large focal consolidation, pneumothorax, or significant pleural effusion. The cardiomediastinal silhouette is stable in appearance. The pulmonary vasculature is within normal limits. The diffusely sclerotic appearing vertebral bodies noted likely reflecting sequela of renal osteodystrophy, better evaluated on prior CT examinations. No acute osseous abnormality is identified. The surrounding soft tissues are unremarkable. IMPRESSION: No acute cardiopulmonary process identified. Signed by: Dr. Shaheen Rose MD on 12/05/2019 11:46 AM Dictated By: SHAHEEN ROSE MD 114 Transcribed By: ANTONIA on 12/05/191145 COPY TO: DWAIN GARCIA~ Procedures 12 Lead ECG Interpretation ECG Interpretation : ECG: ECG 1 Straight Line Press Setter: Interpreted by ED physician Date: Dec 05, 2019 Time: 10:25 Prior ECG tracings: reviewed Rhythm: sinus rhythm (NORMAL) Rate: normal BPM: 61 QRS axis: indeterminate (LOW VOLTAGE) ST segments normal: Yes T waves normal: Yes Clinical Impression: abnormal ECG Critical Care Time Comments DR Bryce LYONS NOTIFIED AT 1250HRS AND ACCEPTS ADMISSION OF PT. / COUNTER TOP ASSEMBLER DARIO GILES(Bhavna HARRY -REPAIRER RECREATIONAL VEHICLE) NOTIFIED AT 1317HRS AND WILL TELL DR HARRY Assessment & Plan Medical Decision Making MDM ACUTE CP R/O ACS, ELEVATED D DIMER R/O PE Assessment & Plan Final Impression: (1) Acute chest pain (2) Chest pain, rule out acute myocardial infarction (3) Dyspnea (4) Elevated d-dimer Last Vital Signs Date Time Temp Pulse Resp B/P (MAP) Pulse Ox O2 Delivery O2 Flow Rate FiO2 12/05/19 10:10 98.1 54 22 170/77 99 Room Air Home Meds Reported Medications Golimumab (Simponi) 100 Mg/1 Ml Pen.injctr, 100 MG for 60 Days 12/05/19 Divalproex Sodium (DIVALPROEX SODIUM ER) 500 Mg Tab.er.24h, 500 MG PO HS 12/05/19 Divalproex Sodium (DIVALPROEX SODIUM ER) 250 Mg Tab.er.24h, 250 MG PO DAILY 12/05/19 Prednisone (PREDNISONE) 5 Mg Tablet, 0.5 MG PO HS, #30 TAB 09/17/19 Zolpidem Tartrate (AMBIEN) 10 Mg Tablet, 10 MG PO HS PRN for INSOMNIA, #30 TAB 09/17/19 Fexofenadine Hcl (SHARIF ALLERGY) 60 Mg Tablet, 60 MG PO DAILY THERAPEUTICALLY SUBSTITUTED WITH CLARITIN 10MG 09/17/19 Pregabalin (LYRICA) 75 Mg Cap, 150 MG PO HS, #30 CAP 11/27/18 Levothyroxine Sodium (SYNTHROID) 100 Mcg Tab, 150 MCG PO HS, #30 TAB 01/11/17 Atorvastatin Calcium (ATORVASTATIN CALCIUM) 20 Mg Tablet, 20 MG PO HS, #30 TAB 05/11/16 Discontinued Reported Medications Cinacalcet Hcl (SENSIPAR) 60 Mg Tablet, 90 MG PO 3X/WEEK 05/11/16 Medications in the ED Aspirin 324 mg ONCE ONCE PO ; Start 12/05/19 at 11:15; Stop 12/05/19 at 11:16; Status DC Nitroglycerin 2 gm ONCE ONCE TOP ; Start 12/05/19 at 11:15; Stop 12/05/19 at 11:16; Status DC Enoxaparin Sodium 150 mg NOW STAT SC ; Start 12/05/19 at 11:01; Stop 12/05/19 at 11:10; Status DC DWAIN GARCIA Dec 05, 2019 12:01
[2019-12-05] MEDS ORDERED: ONDANSETRON HCL INJ 2MG/ML 2ML 2 MG/ML VIAL IV PRN (13:00)
[2019-12-05] MEDS ORDERED: MORPHINE SULFATE 2 MG/ML SYR 1ML IV PRN (13:00)
--- NOTE | 2019-12-05 13:02 | NUR ---
Loretta Muir called for pt consult [phone]
--- OUTSIDE RECORDS SUMMARY | 2019-12-05 13:12 | XMS REPORT | Clinical Summary ---
Author Author [facility] Address Unknown Phone Unavailable Care Team Providers Care Software Quality Engineer Name Role Phone Bebeto Ch PCP Allergies [...] / Dates Group Medicare MEDICARE MEDICARE A [id number] [id number] B resent Medicaid MEDICAID MEDICAID [id number] Present [phone] Advance Directives For more information, please contact: [phone] Date Inactivated Comments Code Status Date Activated 07/06/2017 5:06 PM Full Code 07/06/2017 7:15 AM This code status was determined by: Patient
--- OUTSIDE RECORDS SUMMARY | 2019-12-05 13:12 | XMS REPORT | Continuity of Care Document ---
Author Author [facility] t Organization [facility] Address [address] [place] [address] Phone Unavailable Care Team Providers Care Mechanical Engineering Technologist Name Role Phone DEBBI BUCKNER, MIGUE PCP Olive GARCIA Attphys Unavailable ROMÁN ESCOBAR Attphys Unavailable Olive HODGES Attphys Unavailable Russell DELVALLE Attphys Unavailable Jed MILLAN Attphys Unavailable YOKASTA DEMPSEY Attphys Unavailabl e SABRINA, ALFREDO Attphys Unavailable WERNER, SOUHEIL Attphys Unavailable YOKASTA DEMPSEY Admphys Unavailabl e WERNER, SOUHEIL Admphys Unavailable Payers Payer Name Policy Type Policy Number Effective Date Expiration Date S elidia [facility] [id number] 2015 00:00:00 [facility] Medicare A & B [id number] 2013 00:00:00 [facility] Problems Condition Name Condition Details Condition Category Status Onset Date Resolution Date Last Treatment Date Treating Clinician Comments Source Ventral hernia Ventral hernia Disease Active 2017-07-06 00:00:00 [facility] Morbid obesity with BMI of 50.0-59.9, adult Morbid obe sity with BMI of 50.0- 59.9, adult Disease Active 2013-01-03 00:00:00 [facility] Encounter for blood transfusion Encounter for blood transfusion Dis ease Active 2012-12-19 00:00:00 [facility] Environmental allergies Environmental allergies Disease Active 2012-12-19 00:00:00 [facility] Dysuria Dysuria Disease Active 2012-12-19 00:00:00 [facility] Hematuria Hematuria Disease Active 2012-12-19 00:00:00 [facility] Hyperphosphatemia Hyperphosphatemia Disease Active 2012-12-17 00:00:00 [facility] Secondary hyperparathyroidism of renal origin Secondar y hyperparathyroidism of renal origin Disease Active 2012-12-17 00:00:00 [facility] ESRD on dialysis ESRD on dialysis Disease Active 2012-12-17 00:00:00 [facility] Morbid obesity Morbid obesity Disease Active 2012-12-16 00:00:00 [facility] CKD (chronic kidney disease), stage V CKD (chronic kidney di sease), stage V Disease Active 2012-12-16 00:00:00 [facility] Anemia of chronic disease Anemia of chronic disease Disease Ac tive 2012-12-16 00:00:00 [facility] Blindness of left eye Blindness of left eye Disease Active 201 04-27-05 00:00:00 Overview: 11/07/12 - Received request for outside patient service (Open MRI Brain) from Dr. Raymundo Rosales. Patient's weight (396 lbs) exceeds the limit for [facility] MRI machines. The patient has eligibility under HD Plan 4 (100% Self-Pay). Patient is responsible for payment of procedure @ facility of choice. Unable to approve for outsourcing of procedure @ this time. In basket note to Dr. 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 Disease Active 2011-07-26 00:00:00 [facility] Ureteral stent retained Ureteral stent retained Disease Active 2011-01-09 00:00:00 [facility] Hypertension Hypertension Disease Active 2010-06-02 00:00:00 [facility] Hyperuricemia Hyperuricemia Disease Active 2010-06-02 00:00:00 [facility] Hydronephrosis with renal and ureteral calculous obstr uction Hydronephrosis with renal and ureteral calculous obstruction Disease Active 2010-05-30 00:00: 00 [facility] Hypothyroidism -h/of graves in past; ret roorbital surgery +; seen endo in past - as of Feb 2013 - increase levothyroxine to 275 mcg; ref to endocrinology done; rpt tsh in 8 wks Hypothyroidism -h/of graves in past; ret roorbital surgery +; seen endo in past - as Feb 2013 - increase levothyroxine to 275 mcg; ref to endocrinology done; rpt tsh in 8 wks Disease Active 2010-05-30 00:00:00 [facility] Abdominal hernia Abdominal hernia Problem Active [facility] Abdominal pain Abdominal pain Problem Active [facility] Abdominal wall hernia Abdominal wall hernia Problem Active [facility] Chest pain Chest pain Problem Active [facility] Obesity Obesity Disease Active [facility] Renal stone Renal stone Disease Active [facility] Sleep apnea Sleep apnea Disease Active [facility] Staghorn calculus Staghorn calculus Disease Active [facility] End stage renal disease End stage renal disease Disease Active [facility] Allergies, Adverse Reactions, Alerts Allergy Name Allergy Type Status Severity Reaction(s) Onset Date Inacti ve Date Treating Clinician Comments Source Iodinated Contrast- Oral and IV Dye Allergy to Substance Active M oderate HIVES 2018-10-03 00:00:00 [facility] Latex Propensity to adverse reactions Active Rash 2017-06-25 00 :00:00 [facility] Iodine And Iodide Containing Products Propensity to adverse reactio ns Active Swelling 2017-06-09 00:00:00 [facility] iodine DA Active U 2015-05-08 00:00:00 [facility] Iodine Propensity to adverse reactions to drug Active Swelling 2010-01-05 00:00:00 [facility] Family History Family Member Diagnosis Comments Start Date Stop Date Source Natural father [facility] Natural father Diabetes Shelby Hea [facility] Maternal grandmother Cancer Chanelle is [facility] Natural mother Hypertension Shelby [facility]gin [facility] Paternal grandfather Cancer Chanelle [facility] Social History Social Habit Start Date Stop Date Quantity Comments Source History of tobacco use Cigarette Smoker [facility] Sex Assigned [facility] Tobacco use and exposure 2017-07-06 00:00:00 2017-07-06 00:00:00 Aleksey cespedes used [facility] Cigarettes smoked current (pack per day) - Reported 00:00:00 2013-09-18 00:00:00 [facility] Cigarette pack-years 2013-09-18 00:00:00 2013-09-18 00:00:00 [facility] Alcohol intake 2013-09-18 00:00:00 2013-09-18 00:00:00 Current non-drinker of alcohol (finding) [facility] Tobacco Comment 2010-01-05 00:00:00 2010-01-05 00:00:00 started smoking again in 11/2009 [facility] Smoking Status Start Date Stop Date Source Never smoker [facility] Former smoker 2013-09-18 00:00:00 2013-09-18 00:00:00 [facility] ealt Medications Ordered Medication Name Filled Medication Name Start Date Stop Da te Current Medication? Ordering Clinician Indication Dosage Frequency Signature (SIG) Comments Components Source MIDODRINE HCL (MIDODRINE ORAL) 2017-07-06 15:06:14 Yes 40mg Q.[id number] Take 40 mg by mouth 3 (three) times daily. [facility] linaclotide (LINZESS) 72 mcg Cap 2017-07-06 15:06:14 Yes 72ug QD Take 72 mcg by mouth daily. [facility] clonazePAM (KLONOPIN) 0.5 MG tablet 2017-07-06 15:06:14 Yes .5mg Take 0.5 mg by mouth 2 (two) times daily as needed for Anxiety. [facility] DULoxetine (CYMBALTA) 60 MG capsule 2017-07-06 15:06:14 Yes 60mg Q.5D Take 60 mg by mouth 2 (two) times daily. [facility] lurasidone (LATUDA) 40 mg Tab 2017-07-06 15:06:14 Yes 40mg QD Take 40 mg by mouth daily. [facility] traZODone (DESYREL) 50 MG tablet 2017-07-06 15:06:14 Yes 50mg QD Take 50 mg by mouth nightly. [facility] levothyroxine (SYNTHROID, LEVOTHROID) 150 MCG tablet 2 15:06:14 Yes 150ug Take 150 mcg by mouth Every morning on a n empty stomach. [facility] pregabalin (LYRICA) 75 MG capsule 2017-07-06 15:06:14 Yes 75mg Q.5D Take 75 mg by mouth 2 (two) times daily. [facility] pantoprazole (PROTONIX) 40 MG tablet 2017-07-06 15:06:14 Ye s 40mg QD Take 40 mg by mouth daily. [facility] FLUDROCORTISONE ACETATE (FLUDROCORTISONE ORAL) 2017-07-06 15:06: 14 Yes .1mg QD Take 0.1 mg by mouth daily. [facility] zolpidem (AMBIEN) 10 mg tablet 2017-07-06 15:06:14 Yes 10mg Take 10 mg by mouth every night as needed for Insomnia. [facility] atorvastatin (LIPITOR) 40 MG tablet 2017-07-06 15:06:14 Yes 40mg QD Take 40 mg by mouth daily. [facility] Sevelamer Carbonate (RENVELA) 800 mg tablet 2014-02-06 09:05:57 Yes 800mg Q.[id number] Take 800 mg by mouth 3 times daily with meal s. [facility] diphenhydrAMINE (BENADRYL) 25 mg capsule 2013-12-09 10:58:17 Yes 75mg Take 75 mg by mouth every 6 hours as needed for Allergies. [facility] citalopram (CELEXA) 20 mg tablet 2013-12-09 00:00:00 Yes Depression 20mg QD Take 1 tablet by mouth daily. [facility] carvedilol (COREG) 12.5 mg tablet 2013-12-09 00:00:00 Ye s Hypertension 12.5mg Q.5D Take 1 tablet by mouth 2 times daily. [facility] doxazosin (CARDURA) 4 mg tablet 2013-12-09 00:00:00 Yes Hypertension 4mg QD Take 1 tablet by mouth daily. [facility] amLODIPine (NORVASC) 10 mg tablet 2013-12-09 00:00:00 Ye s Hypertension 10mg QD Take 1 tablet by mouth daily. [facility] topiramate (TOPAMAX) 25 mg tablet 2013-12-09 00:00:00 Ye s Migraine 25mg Q.5D Take 1 tablet by mouth 2 times daily. [facility] allopurinol (ZYLOPRIM) 100 mg tablet 2013-12-09 00:00:00 Yes Hyperuricemia 100mg QD Take 1 tablet by mouth daily. [facility] tamsulosin (FLOMAX) 0.4 mg extended release capsule 2013-02 00:00:00 Yes Renal stone .4mg QD Take 1 capsule by mouth daily. [facility] levothyroxine (SYNTHROID) 200 mcg tablet 2013-12-09 00:00:00 Yes Hypothyroidism 200ug QD Take 1 tablet by mouth daily (total 275 mcg daily). [facility] levothyroxine (SYNTHROID) 75 mcg tablet 2013-12-09 00:00:00 Yes Hypothyroidism 75ug QD Take 1 tablet by mouth daily (total 275 mcg daily). [facility] Atorvastatin Calcium 20 Mg Tablet Atorvastatin Calcium 20 Mg Tablet Yes 20 Bedtime [facility] Cinacalcet Hcl (Sensipar) 60 Mg Tablet Cinacalcet Hcl (Sensipar) 60 Mg Tablet Yes 60 Daily [facility] Fexofenadine Hcl 180 Mg Tablet Fexofenadine Hcl 180 Mg Tablet Yes 180 Daily [facility] Fludrocortisone Acetate 0.1 Mg Tab Fludrocortisone Acetate 0.1 Mg Tab Yes .1 Daily [facility] Levothyroxine Sodium (Synthroid) 100 Mcg Tab Levothyro xine Sodium (Synthroid) 100 Mcg Tab Yes 300 Today At 6:00AM [facility] Midodrine Hcl 2.5 Mg Tablet Midodrine Hcl 2.5 Mg Tablet Yes 5 Three Times A Day [facility] Phoslo Phoslo Yes 3000 Three Times A Day [facility] Pregabalin (Lyrica) 75 Mg Cap Pregabalin (Lyrica) 75 Mg Cap Yes 75 Daily [facility] Ursodiol 300 Mg Capsule Ursodiol 300 Mg Capsule Yes 300 Twice A Day [facility] Levothyroxine Sodium 200 Mcg Tablet, 250 Mcg Oral Levo thyroxine Sodium 200 Mcg Tablet, 250 Mcg Oral 2017-01-11 00:00:00 No 250 Katherine ly [facility] Midodrine Hcl 2.5 Mg Tablet, 10 Mg Oral Midodrine Hcl 2.5 Mg Tablet, 10 Mg Oral 2017-01-11 00:00:00 No 10 Daily [facility] Nabumetone 500 Mg Tab, 1000 Mg Oral Nabumetone 500 Mg Tab, 1000 Mg Oral 2017-01-08 00:00:00 No 1000 Twice A Day [facility] Aripiprazole (Abilify*) 2 Mg Tablet, 2 Mg Oral Aripipr azole (Abilify*) 2 Mg Tablet, 2 Mg Oral 2016-12-28 00:00:00 No 2 Daily [facility] Aspirin 81 Mg Tab.chew, 81 Mg Oral Aspirin 81 Mg Tab.chew, 81 Mg Oral 2016-12-28 00:00:00 No 81 Daily [facility] Citalopram Hydrobromide (Celexa) 40 Mg Tablet, 40 Mg O ral Citalopram Hydrobromide (Celexa) 40 Mg Tablet, 40 Mg Oral 2016-12-28 00:00:00 No 40 Daily [facility] Folic Acid/Vitamin B Comp W-C (Dialyvite 800 Tablet) 0 .8 Mg Tablet, Oral Folic Acid/Vitamin B Comp W-C (Dialyvite 800 Tablet) 0.8 Mg Tablet, Oral 2016-12-28 00:00:00 No Daily [facility] Methocarbamol 500 Mg Tablet, 500 Mg Oral Methocarbamol 500 Mg Tablet, 500 Mg Oral 2016-12-28 00:00:00 No 500 Three Times A Day [facility] Multivitamin (Daily Vitamin) 1 Each Tablet, Oral Mul tivitamin (Daily Vitamin) 1 Each Tablet, Oral 2016-12-28 00:00:00 No Da emilee [facility] Pregabalin (Lyrica) 75 Mg Cap, 75 Mg Oral Pregabalin ( Lyrica) 75 Mg Cap, 75 Mg Oral 2016-12-28 00:00:00 No 75 Bedtime [facility] Sertraline Hcl (Zoloft) 100 Mg Tablet, 100 Mg Oral Ser traline Hcl (Zoloft) 100 Mg Tablet, 100 Mg Oral 2016-12-28 00:00:00 No 100 D aily [facility] Thiamine Hcl 250 Mg Tablet, 250 Mg Oral Thiamine Hcl 250 Mg Tablet, 250 Mg Oral 2016-12-28 00:00:00 No 250 Daily [facility] Topiramate (Topamax) 25 Mg Tablet, 25 Mg Oral Topirama te (Topamax) 25 Mg Tablet, 25 Mg Oral 2016-12-28 00:00:00 No 25 Daily [facility] Topiramate (Topamax) 50 Mg Tablet, 50 Mg Oral Topirama te (Topamax) 50 Mg Tablet, 50 Mg Oral 2016-12-28 00:00:00 No 50 Daily [facility] Vitamin B12 , Oral Vitamin B12 , Oral 2016-12-28 00:00:00 No Daily [facility] Immunizations Ordered Immunization Name Filled Immunization Name Date Status Comments Source Twinrix-HEP A&b 2012 00:00:00 Completed [facility] Influenza Vaccine 2012-12-17 00:00:00 Completed [facility] PNEUMOCOCCAL 23-VALPS VACCINE 25 MCG/0.5 ML INJECTION 2011-12-12 00:00:00 Completed [facility] Influenza Vaccine 2011-12-12 00:00:00 Completed [facility] Lidocaine 1% 5ml Inj 2011-04-26 00:00:00 Completed [facility] Influenza Vaccine 2011-01-14 00:00:00 Completed [facility] Tdap Tetanus, diphtheria, acellular pertussis Vaccine 2010-06-22 00:00:00 Completed [facility] DTaP Diphtheria, Tetanus, Acellular, Pertussis 1996-06 00:00:00 Completed [facility] Procedures Procedure Date / Time Performed Performing Clinician [facility] e CT of abdomen and pelvis without contrast 2018-10-29 00:00:[address] HODGES [facility] Encounters Start Date/Time End Date/Time Encounter Type Admission Type Attendi [facility] Care Department Encounter ID Source 2018-10-29 19:54:00 2018-10-29 23:32:00 Departed Emergency Room [address] CT HODGES [facility] [id number] [facility] 2018-10-03 08:46:00 2018-10-03 13:52:00 Departed Emergency Room 1 CANDIDO DELVALLE [facility] [id number] [facility] 2018-07-03 13:36:00 2018-07-03 13:36:00 Registered Clinic [facility] [id number] [facility] 2017-07-25 20:12:00 2017-07-25 21:28:00 Departed Emergency Room [facility] [id number] [facility] 2017-06-09 10:32:00 2017-06-09 16:14:00 Departed Emergency Room ER VERONICA MILLAN [facility] [id number] [facility] 2017-01-08 16:13:00 2017-01-11 16:47:00 [facility] [id number] [facility] 2016-12-28 13:42:00 2016-12-30 22:53:00 Discharged Inpatient (obs) ER WERNER [facility] [id number] [facility] Results Test Description Test Time Test Comments Results Result Comments Source CXR 2 VIEW - HOPD 2019-12-05 11:43:00 [facility] : 1975 Sex: M [facility] [address] [place], [place] [address] Patient Name: AIDA ZARATE MR #: [id number] : 1975 Age/Sex: 43/M Req #: [id number] Adm Physician: Ordered by: DWAIN GARCIA Report #: [id number] Location: [facility] Room/Bed: Procedure: [id number] HOPD/CXR 2 VIEW - HOPD Exam Date: 12/05/19 Exam Time: 1136 REPORT STATUS: Signed EXAM: CXR 2 VIEW - HOPD DATE: 12/05/2019 11:36 AM INDICATION: Branch of breath, chest pain COMPARISON: CT abdomen/pelvis from 10/29/2018 Chest radiograph from 10/03/2018 FINDINGS: Right-sided IJ chest port identified with distal tip terminating within the SVC. The trachea is midline. The lungs are symmetrically expanded without evidence for large focal consolidation, pneumothorax, or significant pleural effusion. The cardiomediastinal silhouette is stable in appearance. The pulmonary vasculature is within normal limits. The diffusely sclerotic appearing vertebral bodies noted likely reflecting sequela of renal osteodystrophy, better evaluated on prior CT examinations. No acute osseous abnormality is identified. The surrounding soft tissues are unremarkable. IMPRESSION: No acute cardiopulmonary process identified. Signed by: Dr. Shaheen Rose MD on 12/05/2019 11:46 AM Dictated By: SHAHEEN ROSE MD 1146 Transcribed By: ANTONIA on 12/05/19 1146 COPY TO: DWAIN GARCIA FLURO UP TO 1 HR-GENERAL 2019-09-23 09:17:[address] [address] Patient Name: AIDA ZARATE MR #: [id number] : 1975 Age/Sex: 43/M Req #: [id number] Adm Physician: Ordered by: ROMÁN ESCOBAR DPM Report #: [id number] Location: OR Room/Bed: Procedure: DX/FLURO UP TO 1 HR-GENERAL Exam Date: 09/23/19 Exam Time: 0756 REPORT STATUS: Signed OR Fluoroscopy: IMPRESSION: Fluoroscopy service provided in the OR. Interpretation not requested. Signed by: Caesar Plummer MD on 09/23/2019 9:17 AM Dictated By: CAESAR PLUMMER MD 6 Transcribed By: ANTONIA on 09/23/19916 COPY TO: ROMÁN ESCOBAR DPM CT ABDOMEN/PELVIS WO 2018-10-29 23:00:00 [place] [address] Patient Name: AIDA ZARATE MR #: [id number] : 1975 Age/Sex: 42/M Req #: [id number] Adm Physician: Ordered by: CT HODGES MD Report #: [id number] Location: ER Room/Bed: Procedure: [id number] CT/CT ABDOMEN/PELVIS WO Exam Date: 10/29/18 Exam [...] hernia is not included within the scan epiju-[id number]. The hernia appears unchanged compared to scan [...] (test code = 1798-8) 211 25-125 H [facility]2019-09-10 21:28:00* Test Item Value Reference Range Interpretation Comments Lipase (test code = 3040-3) 33 8-78 [facility] [id number] 21:26:00* Test Item Value Reference Range Interpretation Comments Sodium Level (test code = 2951-2) 137 136-145 [facility]assium [id number] 21:26:00* Test Item Value Reference Range Interpretation Comments Potassium Level (test code = 2823-3) 4.4 3.5-5.1 [facility] Lake[facility]loride [id number] 21:26:00* Test Item Value Reference Range Interpretation Comments Chloride Level (test code = 2075-0) 95 98-107 L [facility] LakeCarbon Dioxide [id number] 21:26:00* Test Item Value Reference Range Interpretation Comments Carbon Dioxide Level (test code = 2028-9) 31 22-29 H [facility] LakeAnion [id number] 21:26:00* Test Item Value Reference Range Interpretation Comments Anion Gap (test code = 29110-9) 15.4 8-16 [facility] Lake[facility] Urea [id number] 21:26:00* Test Item Value Reference Range Interpretation Comments Blood Urea Nitrogen (test code = 3094-0) 33 7-26 H [facility] LakeCreatinine2019-09-10 21:26:00* Test Item Value Reference Range Interpretation Comments Creatinine (test code = 2160-0) 7.82 0.72-1.25 H [facility] LakeBUN/Creatinine [id number] 21:26:00* Test Item Value Reference Range Interpretation Comments BUN/Creatinine Ratio (test code = 3097-3) 4 6-25 L [facility] LakeEstimat Glomerular Filtration Rate 2018-10-29 21:26:00* Test Item Value Reference Range Interpretation Comments Estimat Glomerular Filtration Rate (test code = 675693919) 8 >60 L Ranges were taken from the National Kidney Disease Education Program and the [facility] [employer] literature.Reference ranges:60 or greater: Rvsssc74-01 ( for 3 consecutive months): Chronic kidney disease 15 or less: Kidney failureHCA [facility] Healthcare Clear LakeGlucose [id number] 21:26:00* Test Item Value Reference Range Interpretation Comments Glucose Level (test code = OQN2980) 192 74-118 H [facility] LakeCalcium [id number] 21:26:00* Test Item Value Reference Range Interpretation Comments Calcium Level (test code = 85813-7) 7.8 8.4-10.2 L [facility] LakeTotal Kvupyusnd7229-82-98 21:26:00* Test Item Value Reference Range Interpretation Comments Total Bilirubin (test code = 1975-2) 0.7 0.2-1.2 [facility] Lake[facility]ate Amino Transf (AST/SGOT) 2018-10-29 21:26:00* Test Item Value Reference Range Interpretation Comments Aspartate Amino Transf (AST/SGOT) (test code = Aspartate Amino Transf (AST/SGOT)) 13 5-34 [facility] LakeAlanine Aminotransferase (ALT/SGPT) 2018-10-29 21:26:00* Test Item Value Reference Range Interpretation Comments Alanine Aminotransferase (ALT/SGPT) (test code = 1742-6) 13 0-55 [facility] LakeTotal Bjvqutl2084-26-03 21:26:00* Test Item Value Reference Range Interpretation Comments Total Protein (test code = 2885-2) 7.7 6.5-8.1 [facility] LakeAlbumin2019-09-10 21:26:00* Test Item Value Reference Range Interpretation Comments Albumin (test code = 1751-7) 3.7 3.5-5.0 [facility] LakeGlobulin2019-09-10 21:26:00* Test Item Value Reference Range Interpretation Comments Globulin (test code = 82390-9) 4.0 2.3-3.5 H [facility] LakeAlbumin/Globulin [id number] 21:26:00 * Test Item Value Reference Range Interpretation Comments Albumin/Globulin Ratio (test code = 1759-0) 0.9 0.8-2.0 [facility] LakeAlkaline Pxlyipkaaxs7294-25-73 21:26:00* Test Item Value Reference Range Interpretation Comments Alkaline Phosphatase (test code = 6768-6) 539 40-150 H [facility] LakeWhite Blood Rbwrh3293-21-15 21:03:00* Test Item Value Reference Range Interpretation Comments White Blood Count (test code = 6690-2) 7.12 4.8-10.8 [facility] LakeRed Blood Rsoqe2052-55-55 21:03:00* Test Item Value Reference Range Interpretation Comments Red Blood Count (test code = 789-8) 4.21 4.3-5.7 L [facility] LakeHemoglobin2019-09-10 21:03:00* Test Item Value Reference Range Interpretation Comments Hemoglobin (test code = 98140-0) 13.5 14.0-18.0 L [facility] LakeHematocrit2019-09-10 21:03:00* Test Item Value Reference Range Interpretation Comments Hematocrit (test code = 4544-3) 41.0 38.2-49.6 [facility] LakeMean Corpuscular Jvjxxt2749-67-02 21:03:00* Test Item Value Reference Range Interpretation Comments Mean Corpuscular Volume (test code = 787-2) 97.4 81-99 [facility] LakeMean Corpuscular Gwkvqelwkz9991-26-87 21:03:00* Test Item Value Reference Range Interpretation Comments Mean Corpuscular Hemoglobin (test code = 785-6) 32.1 28-32 H [facility] LakeMean Corpuscular Hemoglobin Concent 2018-10-29 21:03:00* Test Item Value Reference Range Interpretation Comments Mean Corpuscular Hemoglobin Concent (test code = 786-4) 32.9 31-35 [facility] LakeRed Cell Distribution [id number] 21:03:00* Test Item Value Reference Range Interpretation Comments Red Cell Distribution Width (test code = 65831-0) 13.5 11.7 -14.4 [facility] LakePlatelet Udvhs6627-17-63 21:03:00* Test Item Value Reference Range Interpretation Comments Platelet Count (test code = 777-3) 187 140-360 [facility] LakeNeutrophils (%) (Auto)2018-10-29 21:03:00 * Test Item Value Reference Range Interpretation Comments Neutrophils (%) (Auto) (test code = 93863-6) 72.3 38.7-80.0 [facility] LakeLymphocytes (%) (Auto)2018-10-29 21:03:00 * Test Item Value Reference Range Interpretation Comments Lymphocytes (%) (Auto) (test code = 736-9) 18.3 18.0-39.1 [facility] LakeMonocytes (%) (Auto)2018-10-29 21:03:00* Test Item Value Reference Range Interpretation Comments Monocytes (%) (Auto) (test code = 5905-5) 4.5 4.4-11.3 [facility] LakeEosinophils (%) (Auto)2018-10-29 21:03:00 * Test Item Value Reference Range Interpretation Comments Eosinophils (%) (Auto) (test code = 713-8) 3.9 0.0-6.0 [facility] LakeBasophils (%) (Auto)2018-10-29 21:03:00* Test Item Value Reference Range Interpretation Comments Basophils (%) (Auto) (test code = 706-2) 0.7 0.0-1.0 [facility] LakeIM GRANULOCYTES %2018-10-29 21:03:00* Test Item Value Reference Range Interpretation Comments IM GRANULOCYTES % (test code = IM GRANULOCYTES %) 0.3 0.0- 1.0 [facility] LakeNeutrophils # (Auto)2018-10-29 21:03:00* Test Item Value Reference Range Interpretation Comments Neutrophils # (Auto) (test code = 751-8) 5.2 2.1-6.9 [facility] LakeLymphocytes # (Auto)2018-10-29 21:03:00* Test Item Value Reference Range Interpretation Comments Lymphocytes # (Auto) (test code = 81766-4) 1.3 1.0-3.2 [facility] LakeMonocytes # (Auto)2018-10-29 21:03:00* Test Item Value Reference Range Interpretation Comments Monocytes # (Auto) (test code = 742-7) 0.3 0.2-0.8 [facility] LakeEosinophils # (Auto)2018-10-29 21:03:00* Test Item Value Reference Range Interpretation Comments Eosinophils # (Auto) (test code = 711-2) 0.3 0.0-0.4 [facility] LakeBasophils # (Auto)2018-10-29 21:03:00* Test Item Value Reference Range Interpretation Comments Basophils # (Auto) (test code = 704-7) 0.1 0.0-0.1 [facility] LakeAbsolute Immature Granulocyte (auto 2018-10-29 21:03:00* Test Item Value Reference Range Interpretation Comments Absolute Immature Granulocyte (auto (luis carlos t code = Absolute Immature Granulocyte (auto) 0.02 0-0.1 [facility] LakeCreatine Kinase [id number] 12:57:00* Test Item Value Reference Range Interpretation Comments Creatine Kinase MB (test code = 07139-2) 1.60 0-5.0 [place] [id number] 12:57:00* Test Item Value Reference Range Interpretation Comments Troponin I (test code = DTA5959) < 0.001 0-0.300 [facility] LakeCreatine Kinase [id number] 12:57:00* Test Item Value Reference Range Interpretation Comments Creatine Kinase MB (test code = 33668-3) 1.60 0-5.0 [place] [id number] 12:57:00* Test Item Value Reference Range Interpretation Comments Troponin I (test code = BIV1815) < 0.001 0-0.300 [facility] LakeCreatine Rpajhd4427-70-69 12:38:00* Test Item Value Reference Range Interpretation Comments Creatine Kinase (test code = 2157-6) 178 30-200 [facility] LakeCreatine Qorwto7461-94-65 12:38:00* Test Item Value Reference Range Interpretation Comments Creatine Kinase (test code = 2157-6) 178 30-200 [facility] LakeProthrombin Srfu7670-79-99 09:46:00* Test Item Value Reference Range Interpretation Comments Prothrombin Time (test code = 5902-2) 13.3 11.9-14.5 [facility] LakeProthromb Time International Ratio 2018-10-03 09:46:00* Test Item Value Reference Range Interpretation Comments Prothromb Time International Ratio (test code = 6301-6) 0.96 Oral Anticoagulant Therapy INR Values:1. Low Intensity Therapy 1.5 - 2.02 . Moderate Intensity Therapy 2.0 - 3.03. High Intensity Therapy(1) 2.5 - 3. 54. High Intensity Therapy(2) 3.0 - 4.05. Panic Value INR > 5.0 [facility] LakeActivated Partial Thromboplast Time 2018-10-03 09:46:00* Test Item Value Reference Range Interpretation Comments Activated Partial Thromboplast Time (test code = 21467-6) 69.5 23.8-35.5 [facility] Labtc3151-79-47 09:46:00* Test Item Value Reference Range Interpretation Comments Sodium Level (test code = 2951-2) 137 136-145 [facility] LakePotassium Hdasr2143-59-16 09:46:00* Test Item Value Reference Range Interpretation Comments Potassium Level (test code = 2823-3) 4.8 3.5-5.1 [facility] LakeChloride Xtkzz0355-44-19 09:46:00* Test Item Value Reference Range Interpretation Comments Chloride Level (test code = 2075-0) 95 98-107 L [facility] LakeCarbon Dioxide Riqpj5327-86-77 09:46:00* Test Item Value Reference Range Interpretation Comments Carbon Dioxide Level (test code = 2028-9) 29 22-29 [facility] LakeAnion Dsb3338-66-04 09:46:00* Test Item Value Reference Range Interpretation Comments Anion Gap (test code = 14130-9) 17.8 8-16 H [facility] LakeBlood Urea Ioxntjqe0374-31-91 09:46:00* Test Item Value Reference Range Interpretation Comments Blood Urea Nitrogen (test code = 3094-0) 54 7-26 H [facility] LakeCreatinine2019-08-15 09:46:00* Test Item Value Reference Range Interpretation Comments Creatinine (test code = 2160-0) 10.63 0.72-1.25 H [facility] LakeBUN/Creatinine Nqgmw0853-69-45 09:46:00* Test Item Value Reference Range Interpretation Comments BUN/Creatinine Ratio (test code = 3097-3) 5 6-25 L [facility] LakeEstimat Glomerular Filtration Rate 2018-10-03 09:46:00* Test Item Value Reference Range Interpretation Comments Estimat Glomerular Filtration Rate (test code = 465101877) 5 >60 L Ranges were taken from the National Kidney Disease Education Program and the [facility] Kidney Foundation literature.Reference ranges:60 or greater: Urtxsz78-26 ( for 3 consecutive months): Chronic kidney disease 15 or less: Kidney failureHCA [facility] Healthcare Clear LakeGlucose Lpzhg7842-24-63 09:46:00* Test Item Value Reference Range Interpretation Comments Glucose Level (test code = AQK9844) 78 74-118 [facility] LakeCalcium Yjeuv8546-45-04 09:46:00* Test Item Value Reference Range Interpretation Comments Calcium Level (test code = 28147-3) 7.6 8.4-10.2 L [facility] LakeTotal Qostgbrrw9991-62-21 09:46:00* Test Item Value Reference Range Interpretation Comments Total Bilirubin (test code = 1975-2) 0.8 0.2-1.2 [facility] LakeAspartate Amino Transf (AST/SGOT) 2018-10-03 09:46:00* Test Item Value Reference Range Interpretation Comments Aspartate Amino Transf (AST/SGOT) (test code = Aspartate Amino Transf (AST/SGOT)) 13 5-34 [facility] LakeAlanine Aminotransferase (ALT/SGPT) 2018-10-03 09:46:00* Test Item Value Reference Range Interpretation Comments Alanine Aminotransferase (ALT/SGPT) (test code = 1742-6) 13 0-55 [facility] LakeTotal Vesapof6374-46-94 09:46:00* Test Item Value Reference Range Interpretation Comments Total Protein (test code = 2885-2) 7.2 6.5-8.1 [facility] LakeAlbumin2019-08-15 09:46:00* Test Item Value Reference Range Interpretation Comments Albumin (test code = 1751-7) 3.5 3.5-5.0 [facility] LakeGlobulin2019-08-15 09:46:00* Test Item Value Reference Range Interpretation Comments Globulin (test code = 33148-4) 3.7 2.3-3.5 H [facility] LakeAlbumin/Globulin Uytoc8707-70-22 09:46:00 * Test Item Value Reference Range Interpretation Comments Albumin/Globulin Ratio (test code = 1759-0) 0.9 0.8-2.0 [facility] LakeAlkaline Zodasygqnin9999-35-12 09:46:00* Test Item Value Reference Range Interpretation Comments Alkaline Phosphatase (test code = 6768-6) 460 40-150 H [facility] LakeProthrombin Gmhv7555-00-83 09:46:00* Test Item Value Reference Range Interpretation Comments Prothrombin Time (test code = 5902-2) 13.3 11.9-14.5 [facility] LakeProthromb Time International Ratio 2018-10-03 09:46:00* Test Item Value Reference Range Interpretation Comments Prothromb Time International Ratio (test code = 6301-6) 0.96 Oral Anticoagulant Therapy INR Values:1. Low Intensity Therapy 1.5 - 2.02 . Moderate Intensity Therapy 2.0 - 3.03. High Intensity Therapy(1) 2.5 - 3. 54. High Intensity Therapy(2) 3.0 - 4.05. Panic Value INR > 5.0 [facility] LakeActivated Partial Thromboplast Time 2018-10-03 09:46:00* Test Item Value Reference Range Interpretation Comments Activated Partial Thromboplast Time (test code = 00385-0) 69.5 23.8-35.5 H [facility] LakeCHEST SINGLE (PORTABLE)2018-10-03 09:45:00 [facility] [address] [address] Patient Name: AIDA ZARATE MR #: [id number] : 1975 Age/Sex: 42/M Req #: [id number] Adm Physician: Ordered by: CANDIDO DELVALLE MD Report #: [id number] Location: ER Room/Bed: Procedure: [id number] D X/CHEST SINGLE (PORTABLE) Exam Date: 10/03/18 [...] Count (test code = 6690-2) 7.52 4.8-10.8 [facility] LakeRed Blood Jorpz5547-12-50 09:24:00* Test Item Value Reference Range Interpretation Comments Red Blood Count (test code = 789-8) 3.98 4.3-5.7 L [facility] LakeHemoglobin2019-08-15 09:24:00* Test Item Value Reference Range Interpretation Comments Hemoglobin (test code = 03654-9) 13.2 14.0-18.0 L [facility] LakeHematocrit2019-08-15 09:24:00* Test Item Value Reference Range Interpretation Comments Hematocrit (test code = 4544-3) 39.2 38.2-49.6 [facility] LakeMean Corpuscular Cvqrnn3713-29-10 09:24:00* Test Item Value Reference Range Interpretation Comments Mean Corpuscular Volume (test code = 787-2) 98.5 81-99 [facility] LakeMean Corpuscular Xqlovnhnkf9545-28-93 09:24:00* Test Item Value Reference Range Interpretation Comments Mean Corpuscular Hemoglobin (test code = 785-6) 33.2 28-32 H [facility] LakeMean Corpuscular Hemoglobin Concent 2018-10-03 09:24:00* Test Item Value Reference Range Interpretation Comments Mean Corpuscular Hemoglobin Concent (test code = 786-4) 33.7 31-35 [facility] LakeRed Cell Distribution Ywfts0384-63-67 09:24:00* Test Item Value Reference Range Interpretation Comments Red Cell Distribution Width (test code = 55373-2) 14.0 11.7 -14.4 [facility] LakePlatelet Moclm0638-05-49 09:24:00* Test Item Value Reference Range Interpretation Comments Platelet Count (test code = 777-3) 224 140-360 [facility] LakeNeutrophils (%) (Auto)2018-10-03 09:24:00 * Test Item Value Reference Range Interpretation Comments Neutrophils (%) (Auto) (test code = 21675-1) 63.7 38.7-80.0 [facility] LakeLymphocytes (%) (Auto)2018-10-03 09:24:00 * Test Item Value Reference Range Interpretation Comments Lymphocytes (%) (Auto) (test code = 736-9) 21.4 18.0-39.1 [facility] LakeMonocytes (%) (Auto)2018-10-03 09:24:00* Test Item Value Reference Range Interpretation Comments Monocytes (%) (Auto) (test code = 5905-5) 9.3 4.4-11.3 [facility] LakeEosinophils (%) (Auto)2018-10-03 09:24:00 * Test Item Value Reference Range Interpretation Comments Eosinophils (%) (Auto) (test code = 713-8) 4.5 0.0-6.0 [facility] LakeBasophils (%) (Auto)2018-10-03 09:24:00* Test Item Value Reference Range Interpretation Comments Basophils (%) (Auto) (test code = 706-2) 0.8 0.0-1.0 [facility] LakeIM GRANULOCYTES %2018-10-03 09:24:00* Test Item Value Reference Range Interpretation Comments IM GRANULOCYTES % (test code = IM GRANULOCYTES %) 0.3 0.0- 1.0 [facility] LakeNeutrophils # (Auto)2018-10-03 09:24:00* Test Item Value Reference Range Interpretation Comments Neutrophils # (Auto) (test code = 751-8) 4.8 2.1-6.9 [facility] LakeLymphocytes # (Auto)2018-10-03 09:24:00* Test Item Value Reference Range Interpretation Comments Lymphocytes # (Auto) (test code = 67975-2) 1.6 1.0-3.2 [facility] LakeMonocytes # (Auto)2018-10-03 09:24:00* Test Item Value Reference Range Interpretation Comments Monocytes # (Auto) (test code = 742-7) 0.7 0.2-0.8 [facility] LakeEosinophils # (Auto)2018-10-03 09:24:00* Test Item Value Reference Range Interpretation Comments Eosinophils # (Auto) (test code = 711-2) 0.3 0.0-0.4 [facility] LakeBasophils # (Auto)2018-10-03 09:24:00* Test Item Value Reference Range Interpretation Comments Basophils # (Auto) (test code = 704-7) 0.1 0.0-0.1 [facility] LakeAbsolute Immature Granulocyte (auto 2018-10-03 09:24:00* Test Item Value Reference Range Interpretation Comments Absolute Immature Granulocyte (auto (luis carlos t code = Absolute Immature Granulocyte (auto) 0.02 0-0.1 [facility] LakeCHEST SINGLE (PORTABLE)2017-12-04 12:27:00 [place] [address] Patient Name: AIDA ZARATE MR #: [id number] : 1975 Age/Sex: 41/M Req #: [id number] Adm Physician: Ordered by: VERONICA MILLAN MD Report #: [id number] Location: ER Room/Bed: Procedure: [id number] DX/ CHEST SINGLE (PORTABLE) Exam Date: 12/04/17 [...] P M Dictated By: GRAY KAUR MD 1228 Transcribed By: ANTONIA on 12/04/17 1228 COPY TO: VERONICA MILLAN MD POTASSIUM-STAT [id number] 07:51:00* Test Item Value Reference Range Interpretation Comments POTASSIUM (BEAKER) (test code = 379) 4.4 meq/L 3.6-5.5 BUN AND YZWWQINPIA4315-22-86 13:11:00* Test Item Value Reference Range Interpretation Comments BLOOD UREA NITROGEN (BEAKER) (test code = 354) 41 mg/dL 7-21 H CREATININE (BEAKER) (test code = 358) 10.48 mg/dL 0.57-1.25 H EGFR (BEAKER) (test code = 1092) 5 mL/min/1.73 sq m ESTIMATED GFR IS NOT ACCURATE CREATININE CLEARANCE IN PREDICTING GLOMERULAR FILTRATION RATE. ESTIMATED GFR IS NOT APPLICABLE FOR DIALYSIS PATIENTS. CSFFNXVYKYUZ8945-01-91 12:59:00* Test Item Value Reference Range Interpretation Comments SODIUM (BEAKER) (test code = 381) 141 meq/L 136-145 POTASSIUM (BEAKER) (test code = 379) 5.1 meq/L 3.5-5.1 CHLORIDE (BEAKER) (test code = 382) 98 meq/L 98-107 CO2 (BEAKER) (test code = 355) 28 meq/L 22-29 NUTZJQQHWW4197-69-49 12:18:00* Test Item Value Reference Range Interpretation Comments HEMOGLOBIN (BEAKER) (test code = 410) 15.4 GM/DL 13.7-17.5 BASIC METABOLIC [id number] 18:38:00* Test Item Value Reference Range Interpretation [...] DIALYSIS PATIENTS. CBC W/PLT COUNT & AUTO [id number] 18:12:00* Test Item Value Reference Range Interpretation [...] = 2801) 1 % 0-1 B-Type Natriuretic Fsndnsu6298-86-86 11:21:00* Test Item Value Reference Range Interpretation Comments B-Type Natriuretic Peptide (test code = 22159-0) -10.0 0-100 [facility]odium Oewzy7988-71-17 11:17:00* Test Item Value Reference Range Interpretation Comments Sodium Level (test code = 2951-2) 137 136-145 [facility]assium Glnnu9737-71-14 11:17:00* Test Item Value Reference Range Interpretation Comments Potassium Level (test code = 2823-3) 4.1 3.5-5.1 [facility] LakeChloride Kgeql3843-68-87 11:17:00* Test Item Value Reference Range Interpretation Comments Chloride Level (test code = 2075-0) 93 98-107 L [facility] LakeCarbon Dioxide Wlrnb5144-05-92 11:17:00* Test Item Value Reference Range Interpretation Comments Carbon Dioxide Level (test code = 2028-9) 30 22-29 H [facility] LakeAnion Fec4615-63-24 11:17:00* Test Item Value Reference Range Interpretation Comments Anion Gap (test code = 94704-6) 18.1 8-16 H [facility] LakeBlood Urea Qjrnlsko3962-81-26 11:17:00* Test Item Value Reference Range Interpretation Comments Blood Urea Nitrogen (test code = 3094-0) 27 7-26 H [facility] LakeCreatinine2018-04-21 11:17:00* Test Item Value Reference Range Interpretation Comments Creatinine (test code = 2160-0) 6.49 0.72-1.25 H [facility] LakeBUN/Creatinine Rvabh1318-69-44 11:17:00* Test Item Value Reference Range Interpretation Comments BUN/Creatinine Ratio (test code = 3097-3) 4 6-25 L [facility] LakeEstimat Glomerular Filtration Rate 2017-06-09 11:17:00* Test Item Value Reference Range Interpretation Comments Estimat Glomerular Filtration Rate (test code = 04793-8) 9 >60 L Ranges were taken from the National Kidney Disease Education Program and the [facility] Kid[facility] Foundation literature.Reference ranges:60 or greater: Ranrpf83-80 ( for 3 consecutive months): Chronic kidney disease 15 or less: Kidney failureHCA [facility] Healthcare Clear LakeGlucose Omlus1499-15-38 11:17:00* Test Item Value Reference Range Interpretation Comments Glucose Level (test code = ZYQ1731) 87 74-118 [facility] LakeCalcium Vnpub1806-26-56 11:17:00* Test Item Value Reference Range Interpretation Comments Calcium Level (test code = 01187-3) 8.7 8.4-10.2 [facility] LakeTotal Fawzvadtn2799-62-51 11:17:00* Test Item Value Reference Range Interpretation Comments Total Bilirubin (test code = 1975-2) 0.9 0.2-1.2 [facility] LakeAspartate Amino Transf (AST/SGOT) 2017-06-09 11:17:00* Test Item Value Reference Range Interpretation Comments Aspartate Amino Transf (AST/SGOT) (test code = Aspartate Amino Transf (AST/SGOT)) 15 5-34 [facility] LakeAlanine Aminotransferase (ALT/SGPT) 2017-06-09 11:17:00* Test Item Value Reference Range Interpretation Comments Alanine Aminotransferase (ALT/SGPT) (test code = 1742-6) 16 0-55 [facility] LakeTotal Klzdmkc7043-61-86 11:17:00* Test Item Value Reference Range Interpretation Comments Total Protein (test code = 2885-2) 8.7 6.5-8.1 H [facility] LakeAlbumin2018-04-21 11:17:00* Test Item Value Reference Range Interpretation Comments Albumin (test code = 1751-7) 3.8 3.5-5.0 [facility] LakeGlobulin2018-04-21 11:17:00* Test Item Value Reference Range Interpretation Comments Globulin (test code = 43713-0) 4.9 2.3-3.5 H [facility] LakeAlbumin/Globulin Hlyza0338-98-70 11:17:00 * Test Item Value Reference Range Interpretation Comments Albumin/Globulin Ratio (test code = 1759-0) 0.8 0.8-2.0 [facility] LakeAlkaline Hrzqrdhcdjp5376-84-50 11:17:00* Test Item Value Reference Range Interpretation Comments Alkaline Phosphatase (test code = 6768-6) 409 40-150 H [facility] LakeAmylase Kzput9160-38-13 11:17:00* Test Item Value Reference Range Interpretation Comments Amylase Level (test code = 1798-8) 277 25-125 H [facility] LakeLipase2018-04-21 11:17:00* Test Item Value Reference Range Interpretation Comments Lipase (test code = 3040-3) 70 8-78 [facility] LakeActivated Partial Thromboplast Time 2017-06-09 11:13:00* Test Item Value Reference Range Interpretation Comments Activated Partial Thromboplast Time (test code = 22029-4) 33.0 23.8-35.5 [facility] LakeProthrombin Bfsp2968-79-85 11:08:00* Test Item Value Reference Range Interpretation Comments Prothrombin Time (test code = 5902-2) 12.7 11.9-14.5 [facility] LakeProthromb Time International Ratio 2017-06-09 11:08:00* Test Item Value Reference Range Interpretation Comments Prothromb Time International Ratio (test code = 6301-6) 1.03 Oral Anticoagulant Therapy INR Values:1. Low Intensity Therapy 1.5 - 2.02 . Moderate Intensity Therapy 2.0 - 3.03. High Intensity Therapy(1) 2.5 - 3. 54. High Intensity Therapy(2) 3.0 - 4.05. Panic Value INR > 5.0 [facility] LakeWhite Blood Lmzvx0124-58-02 10:59:00* Test Item Value Reference Range Interpretation Comments White Blood Count (test code = 6690-2) 6.21 4.8-10.8 [facility] LakeRed Blood Tnbep5210-90-88 10:59:00* Test Item Value Reference Range Interpretation Comments Red Blood Count (test code = 789-8) 5.25 4.3-5.7 [facility] LakeHemoglobin2018-04-21 10:59:00* Test Item Value Reference Range Interpretation Comments Hemoglobin (test code = 66977-7) 16.8 14.0-18.0 [facility] LakeHematocrit2018-04-21 10:59:00* Test Item Value Reference Range Interpretation Comments Hematocrit (test code = 4544-3) 49.8 38.2-49.6 H [facility] LakeMean Corpuscular Ytllpd3241-36-15 10:59:00* Test Item Value Reference Range Interpretation Comments Mean Corpuscular Volume (test code = 787-2) 94.9 81-99 [facility] LakeMean Corpuscular Xjxvxdxniy7646-25-17 10:59:00* Test Item Value Reference Range Interpretation Comments Mean Corpuscular Hemoglobin (test code = 785-6) 32.0 28-32 [facility] LakeMean Corpuscular Hemoglobin Concent 2017-06-09 10:59:00* Test Item Value Reference Range Interpretation Comments Mean Corpuscular Hemoglobin Concent (test code = 786-4) 33.7 31-35 [facility] LakeRed Cell Distribution Bmdzq6775-86-87 10:59:00* Test Item Value Reference Range Interpretation Comments Red Cell Distribution Width (test code = 65399-2) 14.8 11.7 -14.4 H [facility] LakePlatelet Hpqzu8654-53-79 10:59:00* Test Item Value Reference Range Interpretation Comments Platelet Count (test code = 777-3) 174 140-360 [facility] LakeNeutrophils (%) (Auto)2017-06-09 10:59:00 * Test Item Value Reference Range Interpretation Comments Neutrophils (%) (Auto) (test code = 03897-3) 61.8 38.7-80.0 [facility] LakeLymphocytes (%) (Auto)2017-06-09 10:59:00 * Test Item Value Reference Range Interpretation Comments Lymphocytes (%) (Auto) (test code = 736-9) 25.3 18.0-39.1 [facility] LakeMonocytes (%) (Auto)2017-06-09 10:59:00* Test Item Value Reference Range Interpretation Comments Monocytes (%) (Auto) (test code = 5905-5) 8.1 4.4-11.3 [facility] LakeEosinophils (%) (Auto)2017-06-09 10:59:00 * Test Item Value Reference Range Interpretation Comments Eosinophils (%) (Auto) (test code = 713-8) 4.0 0.0-6.0 [facility] LakeBasophils (%) (Auto)2017-06-09 10:59:00* Test Item Value Reference Range Interpretation Comments Basophils (%) (Auto) (test code = 706-2) 0.5 0.0-1.0 [facility] LakeIM GRANULOCYTES %2017-06-09 10:59:00* Test Item Value Reference Range Interpretation Comments IM GRANULOCYTES % (test code = IM GRANULOCYTES %) 0.3 0.0- 1.0 [facility] LakeNeutrophils # (Auto)2017-06-09 10:59:00* Test Item Value Reference Range Interpretation Comments Neutrophils # (Auto) (test code = 751-8) 3.8 2.1-6.9 [facility] LakeLymphocytes # (Auto)2017-06-09 10:59:00* Test Item Value Reference Range Interpretation Comments Lymphocytes # (Auto) (test code = 18060-7) 1.6 1.0-3.2 [facility] LakeMonocytes # (Auto)2017-06-09 10:59:00* Test Item Value Reference Range Interpretation Comments Monocytes # (Auto) (test code = 742-7) 0.5 0.2-0.8 [facility] LakeEosinophils # (Auto)2017-06-09 10:59:00* Test Item Value Reference Range Interpretation Comments Eosinophils # (Auto) (test code = 711-2) 0.3 0.0-0.4 [facility] LakeBasophils # (Auto)2017-06-09 10:59:00* Test Item Value Reference Range Interpretation Comments Basophils # (Auto) (test code = 704-7) 0.0 0.0-0.1 [facility] LakeAbsolute Immature Granulocyte (auto 2017-06-09 10:59:00* Test Item Value Reference Range Interpretation Comments Absolute Immature Granulocyte (auto (luis carlos t code = Absolute Immature Granulocyte (auto) 0.02 0-0.1 [facility] LakeACTH Qazmzdwu1652-77-47 19:55:00* Test Item Value Reference Range Interpretation Comments ACTH Baseline (test code = 2141-0) 38.8 7.2-63.3 ACTH reference interval for samples collected between 7 and10 AM.Performed at: [address] [id number] Director: Michael Kenney MD, Phone: [phone] Houston Healthcare Clear LakeHepatitis B Surface Kygbard8654-66-71 06:10:00* Test Item Value Reference Range Interpretation Comments Hepatitis B Surface Antigen (test code = 5196-1) Negative Negat mars Performed at: [address] [id number] Director: Michael Kenney MD, Phone: [phone] [facility] Healthcare Clear LakeCreatine Kinase [id number] 06:52:00* Test Item Value Reference Range Interpretation Comments Creatine Kinase MB (test code = 19327-9) 0.40 0.00-5.00 [facility] LakeTroponin [id number] 06:52:00* Test Item Value Reference Range Interpretation Comments Troponin I (test code = PGL5089) 0.009 0-0.300 [facility] LakeCreatine Klqccj8188-88-21 06:33:00* Test Item Value Reference Range Interpretation Comments Creatine Kinase (test code = 2157-6) 66 30-200 [facility] LakeThyroid Peroxidase Hjdbqxiujs4797-98-55 05:44:00* Test Item Value Reference Range Interpretation Comments Thyroid Peroxidase Antibodies (test code = 8099-4) 183 0-3 4 H Performed at: [address] [id number] Director: Michael Kenney MD, Phone: [phone] Houston Healthcare Clear LakeFree Ngbvotise9850-06-11 15:24:00* Test Item Value Reference Range Interpretation Comments Free Thyroxine (test code = 3024-7) 0.82 0.8-1.8 [facility] LakeThyroid Stimulating Hormone (TSH) 2017-01-08 15:24:00* Test Item Value Reference Range Interpretation Comments Thyroid Stimulating Hormone (TSH) (test code = 28509-7) 13.697 0.350-4.940 H [facility] LakeCortisol AM Qiyoyz8453-29-09 19:03:00* Test Item Value Reference Range Interpretation Comments Cortisol AM Sample (test code = 9813-7) 15.7 6.2-19.4 Performed at: - [facility] [id number] Director: Michael Kenney MD, Phone: [phone] [facility] Healthcare Clear LakeCortisol PM Xdpkau3118-52-27 19:03:00* Test Item Value Reference Range Interpretation Comments Cortisol PM Sample (test code = 9812-9) 5.5 2.3-11.9 NO TIME ON THE TUBEPerformed at: - [facility] [id number] Director: Michael Kenney MD, Phone: [phone] Houston Healthcare Clear LakeTriglycerides Ilcex3830-19-90 07:37:00* Test Item Value Reference Range Interpretation Comments Triglycerides Level (test code = 2571-8) 222 0-149 H [facility] LakeCholesterol Mcfky3706-39-85 07:37:00* Test Item Value Reference Range Interpretation Comments Cholesterol Level (test code = 2093-3) 207 0-199 H Less than 200 mg/dL Low Obqq850 - 239 mg/dL Borderline Apqf735 m g/dl and greater High Risk [facility] LakeLDL Foppraebsxf0501-43-73 07:37:00* Test Item Value Reference Range Interpretation Comments LDL Cholesterol (test code = 53848-2) 126 60-130 [facility] LakeHDL Sqjigxcgwnv0974-22-41 07:37:00* Test Item Value Reference Range Interpretation Comments HDL Cholesterol (test code = 2085-9) 37 40-60 L [facility] LakeCholesterol/HDL Olceh6999-06-45 07:37:00 * Test Item Value Reference Range Interpretation Comments Cholesterol/HDL Ratio (test code = 9830-1) 5.6 3.9-4.7 H [facility] LakeCT ABDOMEN/PELVIS WO [facility] [address] [address] Patient Name: AIDA ZARATE MR #: [id number] : 1975 Age/Sex: 41/M Req #: [id number] Adm Physician: Ordered by: CECILE [employer]GIS[employer]ATIVE CORRESPONDENT Report #: [id number] Location: ER Room/Bed: Procedure: [id number] CT/CT ABDOMEN/PELVIS WO Exam Date: 06/09/17 Exam [...] 12:59 PM Dictated By: CHEPE HARRIS MD 1259 Transcribed By: ANTONIA on 06/09/17 1259 COPY TO: CECILE [employer]IVE CORRESPONDENT FLUORO GUIDANCE [address]REM [place] [address] Patient Name: AIDA ZARATE MR #: [id number] : Age/Sex: 41/M Req #: [id number] Adm Physician: MIGUE AGUIRRE MD Ordered by: VERONICA MILLAN MD Report #: [id number] Locat ion: MED/SURG3 Room/Bed: [facility] Procedure: [id number] D X/FLUORO GUIDANCE JAYLEN RACHELLE PL/REM Exam [...] Sti ff wire was placed. A 7 Macedonian 15 cm long arrow triple-lumen central line [...] 01/17/17 1010 COPY TO: VERONICA MILLAN MD [facility] (PORTABLE) [address] [place] [address] Patient Name: AIDA ZARATE MR #: [id number] : 1975 Age/Sex: 41/M Req #: [id number] [facility] Physician: Ordered by: VERONICA MILLAN MD Report #: [id number] Location: ER Room/Bed: Procedure: [id number] DX/CHEST SINGLE (PORTABLE) Ex am Date: 01/08/17 Exam Time: 0840 REPORT STATUS : Signed PROCEDURE: CHEST SINGLE (PORTABLE) TECHNIQUE: Portable AP ches t INDICATION: Chest pain COMPARISON: [facility], DX, CHEST SINGLE (NOT PORTABLE), 12/28/2016, [...] TO: VERONICA PARDO MD NON-TUNNELLED CVC CATH PLACNCT [address] [address] Patient Name: AIDA ZARATE MR #: [id number] : 1975 Age/Sex: 41/M Req #: [id number] Adm Physician: MIGUE WERNER MD Ordered by: VERONICA MILLAN MD Report #: [id number] Location: MED/SURG3 Room/Bed: 287-1 Procedure: [id number] I R/NON-TUNNELLED CVC CATH PLACMNT Exam Date: [...] Sti ff wire was placed. A 7 Macedonian 15 cm long arrow triple-lumen central line [...] VERONICA MILLAN MD CHEST SINGLE (NOT PORTABLE) [address] [address] Patient Name: AIDA ZARATE MR #: [id number] : 1975 Age/Sex: 41/M Req #: [id number] Adm Physician: Ordered by: VERONICA DEL CASTILLO MD Report #: [id number] Location: ER Room/Bed: Procedure: [id number] DX/CHEST SINGLE (NOT PORTABLE) Exam Date: 12/28/16 Exam Time: [address] ATUS: Signed PROCEDURE: X-RAY CHEST, ONE VIEW COMPARISON: None. INDICATIONS: CHEST PAIN, DIZZINESS FINDINGS: Limited evaluation due to patient habitus. The lungs are well-inflated. No gross consolidatio n, pleural effusion, or pneumothorax. Cardiomediastinal contour and pulmonary vasculature are within normal limits for portable, AP technique. No ac [place] osseous abnormalities. CONCLUSION: No acute cardiopulmonary a bnormality. Dictated by: Edison Ortiz M.D. on 12/28/2016 at 11:21 Electronically approved by: Edison Ortiz M.D. on 12/28/2016 at 11:21 Dictated By: EDISON ORTIZ MD 112 Transcribed By: YUAN on 12/28/16 112 COPY TO: VERONICA DEL CASTILLO MD RENAL RETROPERITONEAL COMP [address] [place] [address] Patient Name: AIDA ZARATE MR #: [id number] : 1975 Age/Sex: 41/M Req #: [id number] [facility] Physician: MIGUE WERNER MD Ordered by: KRISTOPHER BUCKNER, CHACHA BUCKNER Report #: [id number] Location: [facility] Room/Bed: [facility] 177-1 Procedure: [id number] US /US RENAL RETROPERITONEAL COMP Exam Date: 12/28/16 Reny sales Time: 1618 REPORT STATUS: Signed PROCEDURE: US [...] M.D. on 12/28/2016 at 17:09 Dictated By: LIYAH BUSTILLOS MD 08 Transcribed By: YUAN on 12/28/161708 COPY TO: CHACHA SUMMERS
--- OUTSIDE RECORDS SUMMARY | 2019-12-05 13:12 | XMS REPORT | Clinical Summary ---
Author Author [facility] ict Organization [facility] ict Address Unknown Phone Unavailable Care Team Providers Care Boat Builder Name Role Phone Malina Cantu [phone] Allergies Comments Active Allergy Reactions Severity Noted [...] ht (396 lbs) exceeds the limit for [employer] MRI machines. The patient has eligibility under HD Plan 4 (100% Self-Pay). Patient is responsible for payment of procedure @ facility of choice. Unable to approve for outsou rcing of procedure @ this time. In basket note to Dr. Raymundo Rosales. Thea Waters, RN # [id number] Hyperparathyroidism 07/26/2011 Vitamin D deficiency 07/26/2011 Mixed [...] / Dates Group MEDICARE MEDICARE xxxxxxxxxx 2013-P [phone] [address] resent [id number] [place] [address] COMMERCIAL GENERIC COMMERCIAL xxxxxxxxxx 2013-P GENERIC resent [employer] [facility] PLAN FINANCIAL xxxxxxxxx 2013- [phone] [address] [facility] [place] [address] Advance Directives Date Inactivated Comments Code Status Date Activated 07/15/2013 12:59 PM Full Code 07/10/2013 8:15 PM 2012 5:06 PM Full Code 12/16/2012 12:44 PM 10/30/2012 4:09 PM Full Code 10/24/2012 4:25 PM 05/09/2011 10:47 PM Full Code 05/08/2011 6:20 PM 05/08/2011 6:20 PM Full Code 05/06/2011 11:29 AM
--- NOTE | 2019-12-05 13:13 | NUR ---
Called [facility] for transport to room 100, [facility] bed needed for transport
--- NOTE | 2019-12-05 13:33 | NUR ---
Report to NOHEMI Tamez
[2019-12-05 16:00] VITALS: BP 141/83
[2019-12-05 16:44] VITALS: BP 141/83
[2019-12-05] MEDS ORDERED: DIVALPROEX SOD250 M1 PO (17:03)
[2019-12-05] MEDS ORDERED: DIVALPROEX SOD500 M1 PO (17:03)
[2019-12-05] MEDS ORDERED: SIMPONI100 MG/11 (17:04)
--- NOTE | 2019-12-05 17:15 | Consultation ---
DATE OF CONSULTATION: 12/05/2019 REASON FOR CONSULTATION: Chest pain. CHIEF COMPLAINT: Chest pain. HISTORY OF PRESENT ILLNESS: This is a 43-year-old male with history of morbid obesity, end-stage renal disease on HD therapy, hypothyroidism, and hyperlipidemia. The patient presents to [facility] ER after complaining of chest pain during dialysis on outside ER was noted with elevated D-dimer and V/Q scan was ordered. Cardiology is consulted secondary to the patient's chest pain symptoms. The patient is seen in room. Reports he has been having chest pain for the past several weeks with deep breathing and lying in certain positions. Denies any exertional chest pain. Describes chest pain as ache, pressure in nature, worse with deep breathing, nonradiating. PAST MEDICAL HISTORY: End-stage renal disease on HD therapy, hypertension, hypothyroidism, morbid obesity, status post gastric bypass. PAST SURGICAL HISTORY: Left AV graft, gastric bypass, and lithotripsy. FAMILY HISTORY: Mother at age 71, history of stroke. Father, history of hypertension, diabetes. SOCIAL HISTORY: He is . Denies any alcohol or tobacco use. HOME MEDICATIONS: Levothyroxine 150 mcg, prednisone 5 mg daily, Lipitor 20 mg daily, and Lyrica 75 mg daily. ALLERGIES: TO CONTRAST IODINE. REVIEW OF SYSTEMS: GENERAL: Denies any weight changes. Denies any fatigue, weakness, fevers, chills, or night sweats. SKIN: Denies any rashes or sores. HEENT: Denies any nausea, vomiting, vision change, blurred vision, epistaxis, sore throat, or swollen neck. CARDIAC: Positive for chest pain as in HPI. Denies any orthopnea or PND. Positive for lower extremity edema, left greater than right. RESPIRATORY: Positive for shortness of breath. Denies any cough, wheezing, epistaxis, or hemoptysis. GI: Reports good appetite. Denies any nausea, vomiting, diarrhea, constipation, melena, tarry or bloody stools. VASCULAR: Positive for lower extremity edema, left greater than right. NEUROLOGIC: Denies any tremors, weakness, paralysis, blackout, or seizures. HEMATOLOGY: Denies any bruising or bleeding. ENDOCRINE: Denies any heat or cold intolerance, polyuria, polydipsia, or polyphagia. PHYSICAL EXAMINATION: VITAL SIGNS: Height 70 inches, weight 427 pounds, BMI 61. Temperature 98.1, pulse 53, respiratory rate 18, blood pressure 148/67, and pulse ox 99% on room air. GENERAL: Appears stated age, reliable informant, in no acute distress. Morbidly obese. SKIN: No rashes or bruises noted. HEENT: Normocephalic. Pupils are equal and reactive. Extraocular movements are intact. Trachea midline. No JVD. No carotid bruit. HEART: Regular rate and rhythm. PMI 5th intercostal space. LUNGS: Bilateral breath sounds. Clear to auscultation. Good airway entry and exit. ABDOMEN: Soft, nontender, and nondistended. No organomegaly noted. MUSCULOSKELETAL: Good muscle strength throughout. Positive lower extremity edema, left greater than right. VASCULAR: +2 radial pulses bilaterally, +1 DP/PT pulses bilaterally. Also, left AV fistula in his forearm. NEUROLOGIC: Cranial nerves 2 through 12 seem intact. LABORATORY DATA: White count 9, hemoglobin 12.8, hematocrit 38, and platelets 184. D-dimer 624. BNP 174. Glucose 81, BUN 57, creatinine 10, sodium 137, potassium 4.5, chloride 100, and bicarb 26. Troponin I less than 0.005. ASSESSMENT: 1. Chest pain. 2. End-stage renal disease. 3. Hyperlipidemia. 4. Hypothyroid. 5. Morbid obesity. PLAN: The patient presents with complaints of chest pain, pleuritic in nature for several weeks. V/Q scan has been ordered. We will do venous Doppler to evaluate for any occult thrombus. We will cycle cardiac enzymes. We will place the patient on DVT prophylaxis full-dose. We will continue to monitor the patient and adjust cardiac therapy as clinic course dictates. Thank you very much for this consult. Seen and examined Agree with note Dictated by Nghia Oconnor NP Ophelia Higgins MD DC/FERN /[id number] AGUSTIN
[2019-12-05] MEDS: FAMOTIDINE 20 MG TAB PO SCH (17:37)
[2019-12-05] MEDS: NITROGLYCERIN 2% OINT 1 GM PKT TOP SCH (17:38)
--- NOTE | 2019-12-05 18:18 | Diagnostic Imaging Report ---
Perfusion Lung Scan NOTE: Lung ventilation studies with xenon are not being performed per the recommendation of the Society of Nuclear Medicine and Molecular Imaging. It is not possible to be certain that the ventilation system is adequately disinfected. Ventilation studies with Tc-99m DTPA particles is contraindicated because the delivery by nebulization generates too many water droplets from the patient's airway. Reason for exam: Perfusion Lung Scan NOTE: Lung ventilation studies with xenon are not being performed per the recommendation of the Society of Nuclear Medicine and Molecular Imaging. It is not possible to be certain that the ventilation system is adequately disinfected. Ventilation studies with Tc-99m DTPA particles is contraindicated because the delivery by nebulization generates too many water droplets from the patient's airway. Reason for exam: Chest pain; elevated D-dimer Comparison: Chest radiograph 12/05/2019 Discussion: Ventilation images were not obtained. See note above. Perfusion images of the lungs were obtained in multiple projections following intravenous administration of approximately 6 mCi of Tc-99m MAA. Distribution of tracer appears physiologic throughout the lungs. No segmental perfusion defects of any size are identified. The cardiomediastinal silhouette is unremarkable. Impression: 1. Scan findings represent a VERY LOW probability for acute pulmonary embolic disease based on the perfusion only modified PIOPED II criteria. Concurrent ventilation study would not alter the assigned probability for acute PE. 2. Scan findings are compatible with diffuse parenchymal and/or obstructive lung disease. Comparison: Chest radiograph Discussion: Ventilation images were not obtained. See note above. Perfusion images of the lungs were obtained in multiple projections following intravenous administration of approximately 6 mCi of Tc-99m MAA. Distribution of tracer appears physiologic throughout the lungs. No segmental perfusion defects of any size are identified. The cardiomediastinal silhouette is borderline enlarged. Impression: 1. Scan findings represent a VERY LOW probability for acute pulmonary embolic disease based on the perfusion only modified PIOPED II criteria. Concurrent ventilation study would not alter the assigned probability for acute PE. 2. Borderline enlarged cardiac silhouette. Signed by: Dr. Wendy Escalera M.D. on 12/05/2019 6:15 PM
[2019-12-05 20:00] VITALS: BP 134/82
--- NOTE | 2019-12-05 21:01 | NUR ---
SPOKE TO DR. Emily WERNER AT THIS TIME. NEW ORDER RECEIVED TO CONTINUE HOME MEDS
[2019-12-05] MEDS ORDERED: PREGABALIN 75 MG CAP PO SCH (21:30)
[2019-12-05] MEDS ORDERED: ATORVASTATIN 20 MG TAB PO SCH (21:30)
[2019-12-05] MEDS ORDERED: PREDNISONE 5 MG/5 ML SOLN PO SCH (21:30)
[2019-12-05] MEDS ORDERED: ZOLPIDEM TARTRATE 10 MG TAB PO PRN (21:30)
[2019-12-05] MEDS ORDERED: DEPAKOTE ER 500MG TAB(ONCE DAILY) PO SCH (21:30)
[2019-12-06] MEDS: NITROGLYCERIN 2% OINT 1 GM PKT TOP SCH ×3 (00:06→11:57)
[2019-12-06 00:15] VITALS: BP 128/82
[2019-12-06 03:09] LABS: BASOPHILS % 0.6 % (0.0-1.0); EOSINOPHILS # (AUTO) 0.1 (0.0-0.4); EOSINOPHILS % 1.9 % (0.0-6.0); HEMATOCRIT 35.6 % (38.2-49.6); HEMOGLOBIN 11.6 g/dL (14.0-18.0); LYMPHOCYTES # (AUTO) 2.5 (1.0-3.2); LYMPHOCYTES % 38.7 % (18.0-39.1); MEAN CORPUSCULAR HEMOGLOBIN 31.8 pg (28-32); MEAN CORPUSCULAR HGB CONC 32.6 g/dL (31-35); MEAN CORPUSCULAR VOLUME 97.5 fL (81-99); MONOCYTES # (AUTO) 0.5 (0.2-0.8); MONOCYTES % 8.5 % (4.4-11.3); NEUTROPHILS # (AUTO) 3.2 (2.1-6.9); PLATELET COUNT 147 x10e3/uL (140-360); RED BLOOD COUNT 3.65 x10e6/uL (4.3-5.7)
[2019-12-06 03:25] LABS: CREATINE KINASE MB 2.1 ng/mL (0-5.0)
--- NOTE | 2019-12-06 03:29 | NUR ---
SPOKE TO DR. MAIER AT THIS TIME REGARDING BP READING 183/89, HR 67. NEW ORDER RECEIVED TO CONTINUE HOME MED CARVEDILOL TO START NOW. METOPROLOL TARTRATE 5MG IV Q2H PRN SYSTOLIC BP GREATER THAT 140. Addendum: 12/06/19 at 0406 by Hector Hill RN WRONG PATIENT
[2019-12-06 03:43] LABS: ANION GAP 22.9 mmol/L (8-16); CALCIUM 7.2 mg/dL (8.4-10.2); CHOL/HDL RATIO 4.4 (3.9-4.7); CREATININE, SERUM 12.63 mg/dL (0.72-1.25); POTASSIUM 4.9 mmol/L (3.5-5.1)
[2019-12-06 04:00] VITALS: BP 110/68
--- NOTE | 2019-12-06 07:00 | NUR ---
RECEIVED PATIENT RESTING IN BED NO S/S OF DISTRESS. BED LOW, WHEELS LOCKED, SIDE RAILS X2. CALL LIGHT IN REACH WILL CONTINUE TO MONITOR PATIENT.
[2019-12-06 08:29] VITALS: BP 120/72
[2019-12-06] MEDS ORDERED: DIVALPROEX SODIUM 125 MG TABDR...ER PO SCH (09:00)
[2019-12-06] MEDS ORDERED: LORATADINE 10 MG TAB PO SCH (09:00)
[2019-12-06] MEDS ORDERED: ASPIRIN 325 MG TAB EC PO SCH (09:00)
[2019-12-06] MEDS: FAMOTIDINE 20 MG TAB PO SCH (09:17)
[2019-12-06 09:21] VITALS: BP 120/72
[2019-12-06 11:49] LABS: CREATINE KINASE MB 2.2 ng/mL (0-5.0)
--- NOTE | 2019-12-06 12:05 | NUR ---
Patient cleared by cardiology for discharge.
--- NOTE | 2019-12-06 12:40 | NUR ---
Removed patients IV. Catheter tip intact and pressure dressing applied.
[2019-12-06 12:44] VITALS: BP 118/73
--- NOTE | 2019-12-06 13:00 | NUR ---
Patient discharged from facility. Patient gathered all personal belongings, discharge instructions, and follow up information. Left unit in wheelchair and went home via private auto. No s/s of distress leaving facility.
== END 2019-12-06 13:00 | disposition home or self-care (01) | DRG 313 ==
LOC: FSED 10:32 → ERHOLD 13:00 → MED/SURG 16:00
DX: R07.89 Other chest pain (principal); N18.6 End stage renal disease; I12.0 Hypertensive chronic kidney disease with stage 5 chronic kidney disease or end stage renal disease; Z68.44 Body mass index [BMI] 60.0-69.9, adult; Z99.2 Dependence on renal dialysis; E66.01 Morbid (severe) obesity due to excess calories; Z11.59 Encounter for screening for other viral diseases; E03.9 Hypothyroidism, unspecified; E78.5 Hyperlipidemia, unspecified
CPT/HCPCS: 36415; 71046; 78597; 80048; 80061; 80076; 82550; 82553; 83880; 84484; 85025; 85379; 85610; 93005; 93306; 93970; 96372; 99284; A9540; J1650

== ENCOUNTER → 2020-06-18 | Outpatient (CLI) | payer MEDICARE, BC ==
[~2020-06-18] MED LIST changes: +DIVALPROEX SOD250 M1 PO; +DIVALPROEX SOD500 M1 PO; +SIMPONI100 MG/11
== END ==
LOC: RAD 13:19
DX: G62.9 Polyneuropathy, unspecified (principal)
CPT/HCPCS: 93971

== ENCOUNTER 2020-11-20 08:12 | Inpatient (IN) | payer MEDICARE, BC ==
[~2020-11-20] VITALS: Ht 177.8 cm; Wt 192.3 kg
[2020-11-20] VITALS (12 sets, daily range): BP systolic 105–160; BP diastolic 78–95
[2020-11-20] MEDS ORDERED: DEXAMETHASONE SOD PHOS 10 MG/1 ML VIAL IV ONE (08:30)
[2020-11-20] MEDS ORDERED: NITROGLYCERIN 2% OINT 1 GM PKT TOP ONE (08:30)
[2020-11-20 08:43] LABS: BASOPHILS % 0.1 % (0.0-1.0); HEMATOCRIT 39.4 % (38.2-49.6); HEMOGLOBIN 12.8 g/dL (14.0-18.0); LYMPHOCYTES % 12.7 % (18.0-39.1); MEAN CORPUSCULAR HEMOGLOBIN 33.5 pg (28-32); MEAN CORPUSCULAR HGB CONC 32.5 g/dL (31-35); MEAN CORPUSCULAR VOLUME 103.1 fL (81-99); MONOCYTES # (AUTO) 0.8 (0.2-0.8); MONOCYTES % 10.1 % (4.4-11.3); NEUTROPHILS # (AUTO) 5.9 (2.1-6.9); NEUTROPHILS % 76.3 % (38.7-80.0); PLATELET COUNT 163 x10e3/uL (140-360); RED BLOOD COUNT 3.82 x10e6/uL (4.3-5.7); RED CELL DISTRIBUTION WIDTH 13.7 % (11.7-14.4)
[2020-11-20 09:04] LABS: ALBUMIN 3.3 g/dL (3.5-5.0); ALBUMIN/GLOBULIN RATIO 0.7 (0.8-2.0); ANION GAP 34.6 mmol/L (8-16); CALCIUM 8.9 mg/dL (8.4-10.2); CREATININE, SERUM 18.28 mg/dL (0.72-1.25); POTASSIUM 5.6 mmol/L (3.5-5.1)
[2020-11-20] MEDS ORDERED: ALBUTEROL SULF 0.083% NEB SOLN 3 ML NEB NEB STA (09:32)
[2020-11-20] MEDS ORDERED: INSULIN REGULAR, HUMAN 100 UNIT/1 ML IV ONE (09:45)
[2020-11-20] MEDS ORDERED: CALCIUM GLUCONATE 10% INJ 4.65 MEQ in SODIUM CHLORIDE 0.9% 50ML 50 ML IV ONE (09:45)
[2020-11-20] MEDS ORDERED: DEXTROSE 50% SYRINGE 50 ML IV NR (09:45)
[2020-11-20] MEDS ORDERED: ACETAMINOPHEN 325 MG TAB PO PRN (10:45)
[2020-11-20] MEDS: CEFTRIAXONE 1 GM VIAL IV SCH (11:03)
[2020-11-20] MEDS ORDERED: ENOXAPARIN SOD INJ 120 MG/0.8 ML SYR SC SCH (11:15)
[2020-11-20] MEDS ORDERED: REMDESIVIR 200MG 200 MG in SODIUM CHLORIDE 0.9% 100 ML IV ONE (12:00)
[2020-11-20] MEDS ORDERED: SODIUM CHLORIDE 0.9% 1000ML 2,000 ML IV PRN (14:30)
[2020-11-20] MEDS ORDERED: SODIUM CHLORIDE 0.9% 250ML 500 ML IV PRN (14:30)
[2020-11-20] MEDS: ASCORBIC ACID 500 MG TAB PO SCH (17:00)
[2020-11-20] MEDS: ENOXAPARIN SOD INJ 120 MG/0.8 ML SYR SC SCH (21:08)
[2020-11-21] VITALS (24 sets, daily range): BP systolic 130–163; BP diastolic 81–101
[2020-11-21] MEDS: MELATONIN 5 MG TABLET PO SCH ×2 (00:03→21:00)
[2020-11-21] MEDS: HYDROCODONE/APAP 5MG-325MG TAB PO PRN ×2 (00:03→09:47)
[2020-11-21 06:06] LABS: BASOPHILS % 0.1 % (0.0-1.0); HEMATOCRIT 34.2 % (38.2-49.6); HEMOGLOBIN 11.6 g/dL (14.0-18.0); LYMPHOCYTES # (AUTO) 0.6 (1.0-3.2); MEAN CORPUSCULAR HEMOGLOBIN 33.6 pg (28-32); MEAN CORPUSCULAR HGB CONC 33.9 g/dL (31-35); MEAN CORPUSCULAR VOLUME 99.1 fL (81-99); MONOCYTES # (AUTO) 0.6 (0.2-0.8); MONOCYTES % 7.9 % (4.4-11.3); NEUTROPHILS # (AUTO) 6.6 (2.1-6.9); NEUTROPHILS % 84.5 % (38.7-80.0); PLATELET COUNT 156 x10e3/uL (140-360); RED BLOOD COUNT 3.45 x10e6/uL (4.3-5.7); RED CELL DISTRIBUTION WIDTH 13.5 % (11.7-14.4)
[2020-11-21 06:31] LABS: ALBUMIN 2.7 g/dL (3.5-5.0); ALBUMIN/GLOBULIN RATIO 0.6 (0.8-2.0); CALCIUM 8.7 mg/dL (8.4-10.2); CREATININE, SERUM 14.21 mg/dL (0.72-1.25)
[2020-11-21 07:01] LABS: MAGNESIUM 2.1 MG/DL (1.3-2.1); PHOSPHORUS 6.7 MG/DL (2.3-4.7)
[2020-11-21] MEDS: ASCORBIC ACID 500 MG TAB PO SCH ×2 (09:00→18:03)
[2020-11-21] MEDS: ZINC SULFATE 50 MG CAP PO SCH (09:00)
[2020-11-21] MEDS: DEXAMETHASONE SOD PHOS 10 MG/1 ML VIAL IV SCH (09:47)
[2020-11-21] MEDS: ENOXAPARIN SOD INJ 120 MG/0.8 ML SYR SC SCH ×2 (09:47→21:00)
[2020-11-21] MEDS ORDERED: PREGABALIN75 MG PO (11:37)
[2020-11-21] MEDS ORDERED: LEVOTHYROXINE200 MCG (11:37)
[2020-11-21] MEDS ORDERED: LEVOTHYROXINE50 MCG (11:37)
[2020-11-21] MEDS: REMDESIVIR 100MG 100 MG in SODIUM CHLORIDE 0.9% 100 ML IV SCH (14:47)
[2020-11-21] MEDS: PREGABALIN 75 MG CAP PO SCH ×2 (18:03→21:00)
[2020-11-21] MEDS ORDERED: LOPERAMIDE HCL 2 MG CAP PO PRN (18:30)
[2020-11-21] MEDS ORDERED: LOPERAMIDE HCL 2 MG CAP PO ONE (18:30)
[2020-11-21] MEDS: ATORVASTATIN 20 MG TAB PO SCH (21:00)
[2020-11-21] MEDS: DEPAKOTE ER 500MG TAB(ONCE DAILY) PO SCH (21:00)
[2020-11-22] VITALS (26 sets, daily range): BP systolic 119–166; BP diastolic 73–109
[2020-11-22] MEDS: LEVOTHYROXINE SODIUM 125 MCG TAB PO SCH (06:00)
[2020-11-22] MEDS: DIVALPROEX SODIUM 250 MG TAB...DR PO SCH (08:35)
[2020-11-22] MEDS: CEFTRIAXONE 1 GM VIAL IV SCH (08:35)
[2020-11-22] MEDS: LORATADINE 10 MG TAB PO SCH (08:35)
[2020-11-22] MEDS: DEXAMETHASONE SOD PHOS 10 MG/1 ML VIAL IV SCH (08:35)
[2020-11-22 08:36] LABS: BASOPHILS % 0.1 % (0.0-1.0); HEMATOCRIT 38.3 % (38.2-49.6); HEMOGLOBIN 12.7 g/dL (14.0-18.0); LYMPHOCYTES # (AUTO) 0.7 (1.0-3.2); LYMPHOCYTES % 6.6 % (18.0-39.1); MEAN CORPUSCULAR HEMOGLOBIN 33.8 pg (28-32); MEAN CORPUSCULAR HGB CONC 33.2 g/dL (31-35); MEAN CORPUSCULAR VOLUME 101.9 fL (81-99); MONOCYTES # (AUTO) 0.7 (0.2-0.8); NEUTROPHILS # (AUTO) 8.6 (2.1-6.9); NEUTROPHILS % 85.7 % (38.7-80.0); PLATELET COUNT 152 x10e3/uL (140-360); RED BLOOD COUNT 3.76 x10e6/uL (4.3-5.7); RED CELL DISTRIBUTION WIDTH 13.8 % (11.7-14.4)
[2020-11-22] MEDS: ASCORBIC ACID 500 MG TAB PO SCH ×2 (08:36→18:31)
[2020-11-22] MEDS: PREGABALIN 75 MG CAP PO SCH ×3 (08:36→21:10)
[2020-11-22] MEDS: ZINC SULFATE 50 MG CAP PO SCH (08:36)
[2020-11-22] MEDS: ENOXAPARIN SOD INJ 120 MG/0.8 ML SYR SC SCH ×2 (08:36→21:10)
[2020-11-22] MEDS ORDERED: SODIUM CHLORIDE 0.9% 50ML 50 ML ONE (08:40)
[2020-11-22 08:57] LABS: ALBUMIN/GLOBULIN RATIO 0.6 (0.8-2.0); CALCIUM 9.1 mg/dL (8.4-10.2); CREATININE, SERUM 16.49 mg/dL (0.72-1.25)
[2020-11-22] MEDS: REMDESIVIR 100MG 100 MG in SODIUM CHLORIDE 0.9% 100 ML IV SCH (14:28)
[2020-11-22] MEDS: ALPRAZOLAM 0.25 MG TAB PO PRN (18:54)
[2020-11-22] MEDS: HYDROCODONE/APAP 5MG-325MG TAB PO PRN (19:31)
[2020-11-22] MEDS: MELATONIN 5 MG TABLET PO SCH (21:10)
[2020-11-22] MEDS: DEPAKOTE ER 500MG TAB(ONCE DAILY) PO SCH (21:10)
[2020-11-22] MEDS: ATORVASTATIN 20 MG TAB PO SCH (21:10)
[2020-11-23] VITALS (25 sets, daily range): BP systolic 85–158; BP diastolic 49–96
[2020-11-23] MEDS: LEVOTHYROXINE SODIUM 125 MCG TAB PO SCH (07:03)
[2020-11-23] MEDS ORDERED: SODIUM CHLORIDE 0.9% 50ML 50 ML ONE (08:29)
[2020-11-23] MEDS: LORATADINE 10 MG TAB PO SCH (08:44)
[2020-11-23] MEDS: PREGABALIN 75 MG CAP PO SCH ×3 (08:44→21:37)
[2020-11-23] MEDS: CEFTRIAXONE 1 GM VIAL IV SCH (08:44)
[2020-11-23] MEDS: ZINC SULFATE 50 MG CAP PO SCH (08:44)
[2020-11-23] MEDS: DEXAMETHASONE SOD PHOS 10 MG/1 ML VIAL IV SCH (08:44)
[2020-11-23] MEDS: ASCORBIC ACID 500 MG TAB PO SCH ×2 (08:44→16:46)
[2020-11-23] MEDS: DIVALPROEX SODIUM 250 MG TAB...DR PO SCH (08:44)
[2020-11-23] MEDS: ENOXAPARIN SOD INJ 120 MG/0.8 ML SYR SC SCH ×2 (08:44→21:37)
[2020-11-23 10:35] LABS: BASOPHILS % 0.2 % (0.0-1.0); HEMATOCRIT 40.4 % (38.2-49.6); HEMOGLOBIN 13.2 g/dL (14.0-18.0); LYMPHOCYTES # (AUTO) 0.8 (1.0-3.2); LYMPHOCYTES % 6.3 % (18.0-39.1); MEAN CORPUSCULAR HEMOGLOBIN 33.3 pg (28-32); MEAN CORPUSCULAR HGB CONC 32.7 g/dL (31-35); MONOCYTES # (AUTO) 0.9 (0.2-0.8); MONOCYTES % 7.5 % (4.4-11.3); NEUTROPHILS # (AUTO) 10.5 (2.1-6.9); NEUTROPHILS % 84.4 % (38.7-80.0); PLATELET COUNT 193 x10e3/uL (140-360); RED BLOOD COUNT 3.96 x10e6/uL (4.3-5.7)
[2020-11-23 10:52] LABS: ALBUMIN 2.9 g/dL (3.5-5.0); ALBUMIN/GLOBULIN RATIO 0.6 (0.8-2.0); ANION GAP 26.8 mmol/L (8-16); CALCIUM 9.5 mg/dL (8.4-10.2); CREATININE, SERUM 12.51 mg/dL (0.72-1.25); POTASSIUM 4.8 mmol/L (3.5-5.1)
[2020-11-23] MEDS: HYDROCODONE/APAP 5MG-325MG TAB PO PRN (15:31)
[2020-11-23] MEDS: REMDESIVIR 100MG 100 MG in SODIUM CHLORIDE 0.9% 100 ML IV SCH (16:07)
[2020-11-23] MEDS: HYDROCODONE/APAP 10MG-325MG TAB PO PRN (18:15)
[2020-11-23] MEDS: MELATONIN 5 MG TABLET PO SCH (21:37)
[2020-11-23] MEDS: ATORVASTATIN 20 MG TAB PO SCH (21:37)
[2020-11-23] MEDS: DEPAKOTE ER 500MG TAB(ONCE DAILY) PO SCH (21:37)
[2020-11-24] VITALS (28 sets, daily range): BP systolic 66–126; BP diastolic 50–82
[2020-11-24 06:05] LABS: BASOPHILS % 0.3 % (0.0-1.0); HEMATOCRIT 43.2 % (38.2-49.6); HEMOGLOBIN 14.1 g/dL (14.0-18.0); LYMPHOCYTES # (AUTO) 1.2 (1.0-3.2); LYMPHOCYTES % 7.6 % (18.0-39.1); MEAN CORPUSCULAR HEMOGLOBIN 33.3 pg (28-32); MEAN CORPUSCULAR HGB CONC 32.6 g/dL (31-35); MEAN CORPUSCULAR VOLUME 101.9 fL (81-99); MONOCYTES # (AUTO) 1.1 (0.2-0.8); MONOCYTES % 6.7 % (4.4-11.3); NEUTROPHILS # (AUTO) 13.1 (2.1-6.9); NEUTROPHILS % 83.3 % (38.7-80.0); PLATELET COUNT 233 x10e3/uL (140-360); RED BLOOD COUNT 4.24 x10e6/uL (4.3-5.7); RED CELL DISTRIBUTION WIDTH 14.4 % (11.7-14.4)
[2020-11-24] MEDS: LEVOTHYROXINE SODIUM 125 MCG TAB PO SCH (06:40)
[2020-11-24 07:02] LABS: ALBUMIN/GLOBULIN RATIO 0.5 (0.8-2.0); ANION GAP 31.2 mmol/L (8-16); CALCIUM 9.9 mg/dL (8.4-10.2); CREATININE, SERUM 13.58 mg/dL (0.72-1.25); POTASSIUM 5.2 mmol/L (3.5-5.1)
[2020-11-24] MEDS: ALPRAZOLAM 0.25 MG TAB PO PRN ×2 (08:21→18:59)
[2020-11-24] MEDS: HYDROCODONE/APAP 10MG-325MG TAB PO PRN ×2 (08:21→18:59)
[2020-11-24] MEDS ORDERED: HYDROMORPHONE 1MG/1ML INJ IV ONE (09:30)
[2020-11-24] MEDS: CEFTRIAXONE 1 GM VIAL IV SCH (10:36)
[2020-11-24] MEDS: PREGABALIN 75 MG CAP PO SCH ×3 (10:36→20:33)
[2020-11-24] MEDS: DEXAMETHASONE SOD PHOS 10 MG/1 ML VIAL IV SCH (10:36)
[2020-11-24] MEDS: LORATADINE 10 MG TAB PO SCH (10:36)
[2020-11-24] MEDS: ASCORBIC ACID 500 MG TAB PO SCH ×2 (10:36→16:47)
[2020-11-24] MEDS: ENOXAPARIN SOD INJ 120 MG/0.8 ML SYR SC SCH ×2 (10:36→20:33)
[2020-11-24] MEDS: DIVALPROEX SODIUM 250 MG TAB...DR PO SCH (10:36)
[2020-11-24] MEDS: ZINC SULFATE 50 MG CAP PO SCH (10:36)
[2020-11-24] MEDS: REMDESIVIR 100MG 100 MG in SODIUM CHLORIDE 0.9% 100 ML IV SCH (15:25)
[2020-11-24] MEDS: ATORVASTATIN 20 MG TAB PO SCH (20:33)
[2020-11-24] MEDS: MELATONIN 5 MG TABLET PO SCH (20:33)
[2020-11-24] MEDS: DEPAKOTE ER 500MG TAB(ONCE DAILY) PO SCH (20:33)
[2020-11-24] MEDS: DEXMEDETOMIDINE 400MCG/NS100ML 100 ML IV PRN (20:34)
[2020-11-24] MEDS ORDERED: NOREPINEPHRINE 8 MG/D5W 250 ML 250 ML ONE (22:53)
[2020-11-24] MEDS ORDERED: NOREPINEPHRINE 8 MG/D5W 250 ML 250 ML IV PRN (23:00)
[2020-11-25] VITALS (25 sets, daily range): BP systolic 75–122; BP diastolic 49–78
[2020-11-25] MEDS: LEVOTHYROXINE SODIUM 125 MCG TAB PO SCH (06:47)
[2020-11-25] MEDS: PREGABALIN 75 MG CAP PO SCH ×3 (09:17→21:20)
[2020-11-25] MEDS: ZINC SULFATE 50 MG CAP PO SCH (09:17)
[2020-11-25] MEDS: CEFTRIAXONE 1 GM VIAL IV SCH (09:17)
[2020-11-25] MEDS: LORATADINE 10 MG TAB PO SCH (09:17)
[2020-11-25] MEDS: ASCORBIC ACID 500 MG TAB PO SCH ×2 (09:17→17:00)
[2020-11-25] MEDS: DEXAMETHASONE SOD PHOS 10 MG/1 ML VIAL IV SCH (09:17)
[2020-11-25] MEDS: DIVALPROEX SODIUM 250 MG TAB...DR PO SCH (09:17)
[2020-11-25] MEDS: ENOXAPARIN SOD INJ 120 MG/0.8 ML SYR SC SCH ×2 (09:17→21:20)
[2020-11-25 09:55] LABS: BASOPHILS # (AUTO) 0.1 (0.0-0.1); BASOPHILS % 0.5 % (0.0-1.0); HEMATOCRIT 42.4 % (38.2-49.6); HEMOGLOBIN 14.2 g/dL (14.0-18.0); LYMPHOCYTES # (AUTO) 1.3 (1.0-3.2); LYMPHOCYTES % 7.5 % (18.0-39.1); MEAN CORPUSCULAR HEMOGLOBIN 33.6 pg (28-32); MEAN CORPUSCULAR HGB CONC 33.5 g/dL (31-35); MEAN CORPUSCULAR VOLUME 100.2 fL (81-99); MONOCYTES # (AUTO) 1.3 (0.2-0.8); MONOCYTES % 7.9 % (4.4-11.3); NEUTROPHILS # (AUTO) 13.4 (2.1-6.9); NEUTROPHILS % 79.3 % (38.7-80.0); PLATELET COUNT 239 x10e3/uL (140-360); RED BLOOD COUNT 4.23 x10e6/uL (4.3-5.7); RED CELL DISTRIBUTION WIDTH 14.4 % (11.7-14.4)
[2020-11-25 10:11] LABS: ALBUMIN 2.8 g/dL (3.5-5.0); ALBUMIN/GLOBULIN RATIO 0.5 (0.8-2.0); ANION GAP 28.2 mmol/L (8-16); CALCIUM 9.6 mg/dL (8.4-10.2); CREATININE, SERUM 10.7 mg/dL (0.72-1.25); POTASSIUM 5.2 mmol/L (3.5-5.1)
[2020-11-25] MEDS: VASOPRESSIN 60 UNIT in DEXTROSE 5% 50ML 57 ML IV SCH ×2 (11:00→17:55)
[2020-11-25] MEDS: HYDROCODONE/APAP 10MG-325MG TAB PO PRN (11:56)
[2020-11-25] MEDS: ALPRAZOLAM 0.25 MG TAB PO PRN (11:56)
[2020-11-25] MEDS: DEXMEDETOMIDINE 400MCG/NS100ML 100 ML IV PRN ×2 (14:00→20:55)
[2020-11-25] MEDS ORDERED: HEPARIN SOD (PORCINE) 1000 UNIT/ML SDV IV PRN (18:30)
[2020-11-25] MEDS: ATORVASTATIN 20 MG TAB PO SCH (21:20)
[2020-11-25] MEDS: MELATONIN 5 MG TABLET PO SCH (21:20)
[2020-11-25] MEDS: DEPAKOTE ER 500MG TAB(ONCE DAILY) PO SCH (21:20)
[2020-11-26] VITALS (26 sets, daily range): BP systolic 88–124; BP diastolic 50–89
[2020-11-26] MEDS: LEVOTHYROXINE SODIUM 125 MCG TAB PO SCH (06:00)
[2020-11-26] MEDS: LORATADINE 10 MG TAB PO SCH (08:15)
[2020-11-26] MEDS: DEXAMETHASONE SOD PHOS 10 MG/1 ML VIAL IV SCH (08:15)
[2020-11-26] MEDS: PREGABALIN 75 MG CAP PO SCH (08:16)
[2020-11-26] MEDS: DIVALPROEX SODIUM 250 MG TAB...DR PO SCH (08:16)
[2020-11-26] MEDS: ZINC SULFATE 50 MG CAP PO SCH (08:16)
[2020-11-26] MEDS: ASCORBIC ACID 500 MG TAB PO SCH ×2 (08:16→17:00)
[2020-11-26 08:51] LABS: BASOPHILS # (AUTO) 0.1 (0.0-0.1); BASOPHILS % 0.4 % (0.0-1.0); HEMATOCRIT 40.6 % (38.2-49.6); HEMOGLOBIN 13.2 g/dL (14.0-18.0); LYMPHOCYTES # (AUTO) 0.9 (1.0-3.2); LYMPHOCYTES % 5.9 % (18.0-39.1); MEAN CORPUSCULAR HEMOGLOBIN 33.2 pg (28-32); MEAN CORPUSCULAR HGB CONC 32.5 g/dL (31-35); MEAN CORPUSCULAR VOLUME 102.3 fL (81-99); MONOCYTES # (AUTO) 1.3 (0.2-0.8); MONOCYTES % 8.4 % (4.4-11.3); NEUTROPHILS # (AUTO) 11.9 (2.1-6.9); PLATELET COUNT 247 x10e3/uL (140-360); RED BLOOD COUNT 3.97 x10e6/uL (4.3-5.7); RED CELL DISTRIBUTION WIDTH 14.2 % (11.7-14.4)
[2020-11-26 09:28] LABS: ALBUMIN 2.7 g/dL (3.5-5.0); ALBUMIN/GLOBULIN RATIO 0.5 (0.8-2.0); CREATININE, SERUM 10.87 mg/dL (0.72-1.25)
[2020-11-26] MEDS: ENOXAPARIN SOD INJ 120 MG/0.8 ML SYR SC SCH (10:20)
[2020-11-26] MEDS: VASOPRESSIN 60 UNIT in DEXTROSE 5% 50ML 57 ML IV SCH ×2 (11:00→22:24)
[2020-11-26] MEDS: ATORVASTATIN 20 MG TAB PO SCH (21:46)
[2020-11-26] MEDS: MELATONIN 5 MG TABLET PO SCH (21:46)
[2020-11-26] MEDS: DEPAKOTE ER 500MG TAB(ONCE DAILY) PO SCH (21:46)
[2020-11-27] VITALS (26 sets, daily range): BP systolic 86–116; BP diastolic 54–78
[2020-11-27 05:47] LABS: BASOPHILS % 0.2 % (0.0-1.0); HEMATOCRIT 38.6 % (38.2-49.6); LYMPHOCYTES # (AUTO) 0.9 (1.0-3.2); LYMPHOCYTES % 5.7 % (18.0-39.1); MEAN CORPUSCULAR HEMOGLOBIN 33.6 pg (28-32); MEAN CORPUSCULAR HGB CONC 33.7 g/dL (31-35); MEAN CORPUSCULAR VOLUME 99.7 fL (81-99); MONOCYTES # (AUTO) 1.5 (0.2-0.8); MONOCYTES % 9.7 % (4.4-11.3); NEUTROPHILS # (AUTO) 11.7 (2.1-6.9); NEUTROPHILS % 77.9 % (38.7-80.0); PLATELET COUNT 235 x10e3/uL (140-360); RED BLOOD COUNT 3.87 x10e6/uL (4.3-5.7); RED CELL DISTRIBUTION WIDTH 14.1 % (11.7-14.4)
[2020-11-27 05:58] LABS: ALBUMIN 2.9 g/dL (3.5-5.0); ALBUMIN/GLOBULIN RATIO 0.6 (0.8-2.0); ANION GAP 28.1 mmol/L (8-16); CALCIUM 8.3 mg/dL (8.4-10.2); CREATININE, SERUM 12.81 mg/dL (0.72-1.25); POTASSIUM 5.1 mmol/L (3.5-5.1)
[2020-11-27] MEDS: LEVOTHYROXINE SODIUM 125 MCG TAB PO SCH (06:50)
[2020-11-27] MEDS: DIVALPROEX SODIUM 250 MG TAB...DR PO SCH (08:48)
[2020-11-27] MEDS: LORATADINE 10 MG TAB PO SCH (08:48)
[2020-11-27] MEDS: ASCORBIC ACID 500 MG TAB PO SCH ×2 (08:50→18:33)
[2020-11-27] MEDS: ZINC SULFATE 50 MG CAP PO SCH (08:50)
[2020-11-27] MEDS: DEXAMETHASONE SOD PHOS 10 MG/1 ML VIAL IV SCH (08:51)
[2020-11-27] MEDS: ENOXAPARIN SOD INJ 40 MG/0.4 ML SYR SC SCH (09:26)
[2020-11-27] MEDS: PREGABALIN 75 MG CAP PO SCH (10:09)
[2020-11-27] MEDS: DEXMEDETOMIDINE 400MCG/NS100ML 100 ML IV PRN (20:37)
[2020-11-27] MEDS: ATORVASTATIN 20 MG TAB PO SCH (21:43)
[2020-11-27] MEDS: DEPAKOTE ER 500MG TAB(ONCE DAILY) PO SCH (21:43)
[2020-11-27] MEDS: MELATONIN 5 MG TABLET PO SCH (21:43)
[2020-11-28] VITALS (26 sets, daily range): BP systolic 79–115; BP diastolic 50–78
[2020-11-28 05:57] LABS: BASOPHILS % 0.3 % (0.0-1.0); HEMOGLOBIN 13.5 g/dL (14.0-18.0); LYMPHOCYTES # (AUTO) 0.9 (1.0-3.2); LYMPHOCYTES % 5.9 % (18.0-39.1); MEAN CORPUSCULAR HEMOGLOBIN 33.7 pg (28-32); MEAN CORPUSCULAR HGB CONC 33.8 g/dL (31-35); MEAN CORPUSCULAR VOLUME 99.8 fL (81-99); MONOCYTES # (AUTO) 1.2 (0.2-0.8); MONOCYTES % 8.5 % (4.4-11.3); NEUTROPHILS # (AUTO) 11.3 (2.1-6.9); NEUTROPHILS % 77.5 % (38.7-80.0); PLATELET COUNT 234 x10e3/uL (140-360); RED BLOOD COUNT 4.01 x10e6/uL (4.3-5.7)
[2020-11-28] MEDS: LEVOTHYROXINE SODIUM 125 MCG TAB PO SCH (06:06)
[2020-11-28 06:34] LABS: ALBUMIN 2.9 g/dL (3.5-5.0); ALBUMIN/GLOBULIN RATIO 0.6 (0.8-2.0); CALCIUM 8.2 mg/dL (8.4-10.2); CREATININE, SERUM 11.81 mg/dL (0.72-1.25)
[2020-11-28] MEDS: VASOPRESSIN 60 UNIT in DEXTROSE 5% 50ML 57 ML IV SCH (06:56)
[2020-11-28] MEDS: LORATADINE 10 MG TAB PO SCH (08:21)
[2020-11-28] MEDS: ASCORBIC ACID 500 MG TAB PO SCH ×2 (08:22→17:18)
[2020-11-28] MEDS: PREGABALIN 75 MG CAP PO SCH ×2 (08:22→17:18)
[2020-11-28] MEDS: ZINC SULFATE 50 MG CAP PO SCH (08:22)
[2020-11-28] MEDS: DIVALPROEX SODIUM 250 MG TAB...DR PO SCH (08:22)
[2020-11-28] MEDS: ENOXAPARIN SOD INJ 40 MG/0.4 ML SYR SC SCH (08:24)
[2020-11-28 08:57] LABS: LYMPHOCYTES % (MANUAL) 11 % (19-48); MONOCYTES % (MANUAL) 7 % (3.4-9.0); NEUTROPHILS % (MANUAL) 81 % (40-74); NUCLEATED RED BLOOD CELLS 1; PLATELET ESTIMATE ADEQUATE; RBC MORPHOLOGY COMMENT NORMAL
[2020-11-28 08:58] LABS: PLATELET MORPHOLOGY COMMENT FEW GIANT
[2020-11-28 08:59] LABS: LARGE PLATELETS FEW
[2020-11-28] MEDS ORDERED: PANTOPRAZOLE SOD 40 MG TABEC PO ONE (12:30)
[2020-11-28] MEDS: DEXMEDETOMIDINE 400MCG/NS100ML 100 ML IV PRN (17:20)
[2020-11-28] MEDS: MELATONIN 5 MG TABLET PO SCH (21:29)
[2020-11-28] MEDS: ATORVASTATIN 20 MG TAB PO SCH (21:29)
[2020-11-28] MEDS: DEPAKOTE ER 500MG TAB(ONCE DAILY) PO SCH (21:29)
[2020-11-29] VITALS (24 sets, daily range): BP systolic 88–138; BP diastolic 46–81
[2020-11-29] MEDS: DEXMEDETOMIDINE 400MCG/NS100ML 100 ML IV PRN ×3 (02:24→21:12)
[2020-11-29 05:02] LABS: BASOPHILS % 0.3 % (0.0-1.0); EOSINOPHILS # (AUTO) 0.2 (0.0-0.4); EOSINOPHILS % 1.5 % (0.0-6.0); HEMATOCRIT 38.5 % (38.2-49.6); HEMOGLOBIN 12.9 g/dL (14.0-18.0); LYMPHOCYTES % 8.7 % (18.0-39.1); MEAN CORPUSCULAR HGB CONC 33.5 g/dL (31-35); MEAN CORPUSCULAR VOLUME 98.5 fL (81-99); MONOCYTES # (AUTO) 1.2 (0.2-0.8); MONOCYTES % 10.2 % (4.4-11.3); NEUTROPHILS # (AUTO) 8.2 (2.1-6.9); NEUTROPHILS % 70.3 % (38.7-80.0); PLATELET COUNT 190 x10e3/uL (140-360); RED BLOOD COUNT 3.91 x10e6/uL (4.3-5.7); RED CELL DISTRIBUTION WIDTH 14.1 % (11.7-14.4)
[2020-11-29] MEDS: VASOPRESSIN 60 UNIT in DEXTROSE 5% 50ML 57 ML IV SCH (05:30)
[2020-11-29] MEDS: LEVOTHYROXINE SODIUM 125 MCG TAB PO SCH (05:42)
[2020-11-29 05:53] LABS: ALBUMIN 2.8 g/dL (3.5-5.0); ALBUMIN/GLOBULIN RATIO 0.6 (0.8-2.0); ANION GAP 30.1 mmol/L (8-16); CALCIUM 7.7 mg/dL (8.4-10.2); CREATININE, SERUM 14.26 mg/dL (0.72-1.25); POTASSIUM 5.1 mmol/L (3.5-5.1)
[2020-11-29] MEDS: ENOXAPARIN SOD INJ 40 MG/0.4 ML SYR SC SCH (08:39)
[2020-11-29] MEDS: ASCORBIC ACID 500 MG TAB PO SCH ×2 (08:39→17:23)
[2020-11-29] MEDS: LORATADINE 10 MG TAB PO SCH (08:39)
[2020-11-29] MEDS: PREGABALIN 75 MG CAP PO SCH ×2 (08:39→17:23)
[2020-11-29] MEDS: DIVALPROEX SODIUM 250 MG TAB...DR PO SCH (08:39)
[2020-11-29] MEDS: ZINC SULFATE 50 MG CAP PO SCH (08:39)
[2020-11-29] MEDS: MELATONIN 5 MG TABLET PO SCH (21:10)
[2020-11-29] MEDS: ATORVASTATIN 20 MG TAB PO SCH (21:10)
[2020-11-29] MEDS: DEPAKOTE ER 500MG TAB(ONCE DAILY) PO SCH (21:10)
[2020-11-30] VITALS (26 sets, daily range): BP systolic 79–144; BP diastolic 53–110
[2020-11-30] MEDS: HYDROCODONE/APAP 10MG-325MG TAB PO PRN ×2 (02:48→08:26)
[2020-11-30] MEDS: DEXMEDETOMIDINE 400MCG/NS100ML 100 ML IV PRN (03:52)
[2020-11-30] MEDS: LEVOTHYROXINE SODIUM 125 MCG TAB PO SCH (05:25)
[2020-11-30 06:03] LABS: BASOPHILS # (AUTO) 0.1 (0.0-0.1); BASOPHILS % 0.5 % (0.0-1.0); EOSINOPHILS # (AUTO) 0.2 (0.0-0.4); EOSINOPHILS % 1.9 % (0.0-6.0); HEMATOCRIT 38.2 % (38.2-49.6); HEMOGLOBIN 12.6 g/dL (14.0-18.0); LYMPHOCYTES # (AUTO) 0.8 (1.0-3.2); LYMPHOCYTES % 7.5 % (18.0-39.1); MEAN CORPUSCULAR HEMOGLOBIN 33.4 pg (28-32); MEAN CORPUSCULAR VOLUME 101.3 fL (81-99); MONOCYTES # (AUTO) 0.9 (0.2-0.8); MONOCYTES % 8.7 % (4.4-11.3); NEUTROPHILS # (AUTO) 7.6 (2.1-6.9); NEUTROPHILS % 72.1 % (38.7-80.0); PLATELET COUNT 155 x10e3/uL (140-360); RED BLOOD COUNT 3.77 x10e6/uL (4.3-5.7); RED CELL DISTRIBUTION WIDTH 14.1 % (11.7-14.4)
[2020-11-30 06:27] LABS: ALBUMIN 2.5 g/dL (3.5-5.0); ALBUMIN/GLOBULIN RATIO 0.5 (0.8-2.0); ANION GAP 24.5 mmol/L (8-16); CALCIUM 7.7 mg/dL (8.4-10.2); CREATININE, SERUM 9.83 mg/dL (0.72-1.25); POTASSIUM 4.5 mmol/L (3.5-5.1)
[2020-11-30] MEDS: PREGABALIN 75 MG CAP PO SCH ×2 (08:19→17:42)
[2020-11-30] MEDS: LORATADINE 10 MG TAB PO SCH (08:19)
[2020-11-30] MEDS: ASCORBIC ACID 500 MG TAB PO SCH ×2 (08:19→17:42)
[2020-11-30] MEDS: DIVALPROEX SODIUM 250 MG TAB...DR PO SCH (08:19)
[2020-11-30] MEDS: ZINC SULFATE 50 MG CAP PO SCH (08:19)
[2020-11-30] MEDS: ENOXAPARIN SOD INJ 40 MG/0.4 ML SYR SC SCH (08:20)
[2020-11-30] MEDS: VASOPRESSIN 60 UNIT in DEXTROSE 5% 50ML 57 ML IV SCH ×2 (08:26→17:42)
[2020-11-30] MEDS ORDERED: HYDROCODONE/APAP 10MG-325MG TAB PO PRN (10:15)
[2020-11-30] MEDS ORDERED: DEXMEDETOMIDINE 400MCG/NS100ML 100 ML IV PRN (10:15)
[2020-11-30] MEDS ORDERED: NOREPINEPHRINE 8 MG/D5W 250 ML 250 ML IV SCH (21:00)
[2020-11-30] MEDS ORDERED: ALBUMIN 25% 25GM 100ML 0.25 GM/ML BTL IV ONE (21:00)
[2020-11-30] MEDS: MELATONIN 5 MG TABLET PO SCH (22:01)
[2020-11-30] MEDS: ATORVASTATIN 20 MG TAB PO SCH (22:01)
[2020-11-30] MEDS: DEPAKOTE ER 500MG TAB(ONCE DAILY) PO SCH (22:01)
[2020-12-01] VITALS (23 sets, daily range): BP systolic 89–152; BP diastolic 49–89
[2020-12-01 05:38] LABS: BASOPHILS # (AUTO) 0.1 (0.0-0.1); BASOPHILS % 0.4 % (0.0-1.0); EOSINOPHILS # (AUTO) 0.3 (0.0-0.4); EOSINOPHILS % 2.2 % (0.0-6.0); HEMATOCRIT 35.9 % (38.2-49.6); HEMOGLOBIN 11.8 g/dL (14.0-18.0); LYMPHOCYTES # (AUTO) 1.1 (1.0-3.2); LYMPHOCYTES % 9.8 % (18.0-39.1); MEAN CORPUSCULAR HEMOGLOBIN 33.3 pg (28-32); MEAN CORPUSCULAR HGB CONC 32.9 g/dL (31-35); MEAN CORPUSCULAR VOLUME 101.4 fL (81-99); MONOCYTES % 8.5 % (4.4-11.3); NEUTROPHILS % 70.5 % (38.7-80.0); PLATELET COUNT 158 x10e3/uL (140-360); RED BLOOD COUNT 3.54 x10e6/uL (4.3-5.7); RED CELL DISTRIBUTION WIDTH 14.5 % (11.7-14.4)
[2020-12-01] MEDS: LEVOTHYROXINE SODIUM 125 MCG TAB PO SCH (05:43)
[2020-12-01 06:02] LABS: ALBUMIN 2.8 g/dL (3.5-5.0); ALBUMIN/GLOBULIN RATIO 0.6 (0.8-2.0); ANION GAP 30.7 mmol/L (8-16); CALCIUM 7.4 mg/dL (8.4-10.2); CREATININE, SERUM 12.55 mg/dL (0.72-1.25); POTASSIUM 4.7 mmol/L (3.5-5.1)
[2020-12-01] MEDS ORDERED: ALBUMIN 25% 25GM 100ML 0.25 GM/ML BTL IV ONE (09:00)
[2020-12-01] MEDS: ASCORBIC ACID 500 MG TAB PO SCH ×2 (09:14→18:31)
[2020-12-01] MEDS: PREGABALIN 75 MG CAP PO SCH ×2 (09:14→18:31)
[2020-12-01] MEDS: ZINC SULFATE 50 MG CAP PO SCH (09:14)
[2020-12-01] MEDS: ENOXAPARIN SOD INJ 40 MG/0.4 ML SYR SC SCH (09:14)
[2020-12-01] MEDS ORDERED: ALBUMIN 25% 25GM 100ML 100 ML IV ONE (09:45)
[2020-12-01] MEDS: DIVALPROEX SODIUM 250 MG TAB...DR PO SCH (10:11)
[2020-12-01] MEDS: VASOPRESSIN 60 UNIT in DEXTROSE 5% 50ML 57 ML IV SCH (19:38)
[2020-12-01] MEDS: MELATONIN 5 MG TABLET PO SCH (20:49)
[2020-12-01] MEDS: DEPAKOTE ER 500MG TAB(ONCE DAILY) PO SCH (20:49)
[2020-12-01] MEDS: ATORVASTATIN 20 MG TAB PO SCH (20:49)
== END 2020-12-01 21:34 | DRG 871 ==
LOC: ER 08:38 → ERHOLD 09:54 → ICU 12:03
PROC: 5A1D70Z Performance of Urinary Filtration, Intermittent, Less than 6 Hours Per Day (ICD-10-PCS; 2020-11-20)
PROC: 02HV33Z Insertion of Infusion Device into Superior Vena Cava, Percutaneous Approach (ICD-10-PCS; principal; 2020-11-25)
PROC: B548ZZA Ultrasonography of Superior Vena Cava, Guidance (ICD-10-PCS; 2020-11-25)
DX: A41.89 Other specified sepsis (principal); U07.1 COVID-19; J12.82 Pneumonia due to coronavirus disease 2019; N18.6 End stage renal disease; J96.01 Acute respiratory failure with hypoxia; I12.0 Hypertensive chronic kidney disease with stage 5 chronic kidney disease or end stage renal disease; Z68.44 Body mass index [BMI] 60.0-69.9, adult; E87.5 Hyperkalemia; E87.70 Fluid overload, unspecified; E03.9 Hypothyroidism, unspecified; F31.9 Bipolar disorder, unspecified; E66.01 Morbid (severe) obesity due to excess calories; M06.9 Rheumatoid arthritis, unspecified; G47.33 Obstructive sleep apnea (adult) (pediatric); I95.9 Hypotension, unspecified; G89.29 Other chronic pain; G62.9 Polyneuropathy, unspecified; D63.1 Anemia in chronic kidney disease; Z99.2 Dependence on renal dialysis; Z91.041 Radiographic dye allergy status; Z98.84 Bariatric surgery status; Z80.8 Family history of malignant neoplasm of other organs or systems; Z83.3 Family history of diabetes mellitus; Z84.89 Family history of other specified conditions
CPT/HCPCS: 36415; 70450; 71045; 72125; 80053; 80164; 82948; 83605; 83735; 83880; 84100; 84484; 85025; 85379; 86704; 86705; 86706; 87040; 87340; 90962; 93005; 94660; 99251; 99285; J0456; J0610; J0696; J1100; J1170; J1650; J1817; J7030; J7050; J7799; P9047; U0002